=== PATIENT | female | born 1940 | race Caucasian/White ===

== ENCOUNTER 2016-10-29 17:54 | Inpatient (IN) | payer MEDICARE, BC ==
[2016-10-29 19:15] LABS: Hematocrit 46 % (35-47); Hemoglobin 15.2 g/dl (12.0-16.0); Mean Corpuscular HGB Conc 33 g/dl (31-36); Mean Corpuscular Hemoglobin 28 pg (27-31); Mean Corpuscular Volume 85 fL (80-97); Mean Platelet Volume 7 um3 (7.4-10.4); Red Blood Count 5.42 10^6/ul (4.0-5.4); Red Cell Distribution Width 15 % (10.5-15); White Blood Count 10.7 10^3/ul (3.5-10.8)
[2016-10-29 19:28] LABS: ALT 17 U/L (7-52); AST 31 U/L (13-39); Albumin 4.7 g/dL (3.2-5.2); Alkaline Phosphatase 70 U/L (34-104); Anion Gap 11 mmol/L (2-11); BUN/Creatinine Ratio 11.5 (8-20); Blood Urea Nitrogen 11 mg/dL (6-24); CO2 Carbon Dioxide 25 mmol/L (22-32); Calcium 9.6 mg/dL (8.6-10.3); Chloride 102 mmol/L (101-111); EGFR African American 72.9 (>60); EGFR Non-African American 56.7 (>60); Glucose 155 mg/dL (70-100); Potassium 2.8 mmol/L (3.5-5.0); Sodium 138 mmol/L (133-145); Total Protein 7.7 g/dL (6.4-8.9)
[2016-10-29 19:34] LABS: Acetaminophen < 15 mcg/mL; Alcohol < 10 mg/dL (<10); Salicylate < 2.50 mg/dL (<30)
[2016-10-29 19:44] LABS: TSH (Thyroid Stimulating Horm) 1.91 mcIU/mL (0.34-5.60)
[2016-10-29] MEDS ORDERED: Potassium Chlor TAB* 20 MEQ TAB.ER PO ONE (20:07)
[2016-10-29] MEDS ORDERED: Acetaminophen TAB* 325 MG PO ONE (20:07)
--- NOTE | 2016-10-29 20:20 | RAD ---
INDICATION: Altered mental status. COMPARISON: Comparison is made with a prior CT of the brain from July 10, 2015. TECHNIQUE: Contiguous axial sections of the brain were obtained from the skull base to the vertex without contrast. FINDINGS: The ventricles, cisterns and sulci are enlarged and unchanged significantly from the prior study.. There are multiple areas of decreased density in the subcortical and periventricular white matter which are unchanged significantly most consistent with chronic small vessel ischemic changes. No other focal abnormality or mass effect is seen. There is no evidence for hemorrhage. No significant focal osseous abnormality is seen. The visualized portion of the paranasal sinuses and mastoid air cells appear clear. IMPRESSION: 1. NO EVIDENCE FOR GROSS ACUTE INFARCT, MASS EFFECT OR HEMORRHAGE. 2. ATROPHY AND FINDINGS MOST CONSISTENT WITH MODERATE TO SEVERE CHRONIC SMALL VESSEL ISCHEMIC CHANGES.
[2016-10-29 20:23] LABS: Urine Bacteria Absent (Absent); Urine Bilirubin Negative (Negative); Urine Glucose 1+(50 mg/dL) (Negative); Urine Nitrite Negative (Negative)
[2016-10-29 20:37] LABS: Benzodiazepine Urine Screen None Detected (None Detect)
[2016-10-29] MEDS ORDERED: LORazepam TAB(*) 1 MG PO ONE (21:22)
[2016-10-29] MEDS ORDERED: LORazepam TAB(*) 1 MG ONE (21:24)
--- NOTE | 2016-10-30 00:24 | ED ---
Conchita Bentley Janilya, scribed for Steffen Washington MD on 10/29/16 at 1838 . Psychiatric Complaint - HPI Summary HPI Summary: A 76 y/o female was brought to [facility] by police for stating "I don't want to live anymore". Pt confirms this sentiment, however denies having any thoughts about self-harm. Pt does not take any medication for depression anymore, however , she used to do so before. Pt reports feeling depressed. - History Of Current Complaint Chief Complaint: EDMentalHealth Time Seen by Provider: 10/29/16 18:26 Hx Obtained From: Patient Onset/Duration: Sudden Onset, Lasting Days, Still Present Timing: Constant Severity Initially: Moderate Severity Currently: Moderate Character: Depressed Aggravating Factor(s): Nothing Alleviating Factor(s): Nothing Associated Signs And Symptoms: Positive: Negative Related History: Positive For: Prior Psychiatric Issues Has Suicidal: Denies: Thoughts, With A Plan Has Homicidal: Denies: Thoughts, With A Plan - Risk Factor(s) Completed Suicide Risk Factors: Age Greater Than 60 - Allergies/Home Medications Allergies/Adverse Reactions: Allergies Allergy/AdvReac Type Severity Reaction Status Date / Time Adhesive Tape Allergy Intermediate Blisters Verified 10/29/16 18:13 Bacitracin [From Neosporin] Allergy Intermediate Blisters Verified 10/29/16 18: 13 Neomycin [From Neosporin] Allergy Intermediate Blisters Verified 10/29/16 18:13 Polymyxin B [From Neosporin] Allergy Intermediate Blisters Verified 10/29/16 18: 13 Ciprofloxacin [From Cipro] Allergy Unknown Unknown Verified 10/29/16 18:13 Reaction Details Fentanyl Allergy Unknown Unknown Verified 10/29/16 18:13 Reaction Details Penicillins Allergy Unknown Unknown Verified 10/29/16 18:13 Reaction Details Diclofenac [From Arthrotec] Allergy GI Upset Verified 10/29/16 18:13 Misoprostol [From Arthrotec] Allergy GI Upset Verified 10/29/16 18:13 Erythromycin AdvReac Intermediate GI Upset Verified 10/29/16 18:13 Hair Dye Allergy Intermediate Blisters Uncoded 10/29/16 18:13 Seasonal/Environmental Allergy Intermediate Coughing Uncoded 10/29/16 18:13 Toprol Allergy Unknown Unknown Uncoded 10/29/16 18:13 Reaction Details bactiban Allergy Unknown Uncoded 10/29/16 18:13 Reaction Details PMH/Surg Hx/FS Hx/Imm Hx Endocrine/Hematology History: Reports: Hx Thyroid Disease - Nodule, needs follow up, Hx Anemia Denies: Hx Diabetes Cardiovascular History: Reports: Hx Coronary Artery Disease, Hx Deep Vein Thrombosis, Hx Hypercholesterolemia, Hx Hypertension, Hx Syncope Denies: Hx Congestive Heart Failure, Hx Pacemaker/ICD Respiratory History: Reports: Hx Asthma - Seasonal, Hx Pneumonia, Hx Pulmonary Embolism, Hx Seasonal Allergies Denies: Hx Chronic Obstructive Pulmonary Disease (COPD) GI History: Reports: Hx Gastroesophageal Reflux Disease, Hx Gastrointestinal Bleed Denies: Hx Ulcer History: Denies: Hx Renal Disease Musculoskeletal History: Reports: Hx Arthritis, Hx Back Problems, Other Musculoskeletal History - hx right heel ulcers Sensory History: Reports: Hx Contacts or Glasses Denies: Hx Hearing Aid, Other Sensory Impairments Opthamlomology History: Reports: Hx Contacts or Glasses Denies: Other Sensory Impairments Neurological History: Reports: Hx Headaches, Hx Migraine - 3 in lifetime, Hx Transient Ischemic Attacks (TIA) Denies: Hx Dementia, Hx Developmental Delay, Hx Nerve Disease, Hx Seizures, Hx Spinal Cord Injury, Other Neuro Impairments/Disorders - hx lumbar stenosis Psychiatric History: Reports: Hx Anxiety, Hx Depression, Hx Inpatient Treatment , Hx Substance Abuse, Other Psychiatric Issues/Disorders - Previous suicide attempt 2012 , delirium Denies: Hx Eating Disorder, Hx Panic Disorder, Hx Community Mental Health Tx , Hx of Violent Episodes Against Others - Surgical History Surgery Procedure, Year, and Place: Tubal ligation 1971, right knee surgery 1984, Removal of lesions on skin all benign, RIGHT LEG ARTERIAL STENT, exploratory surgery, cardiac cath at [facility] [place] 04/07/14 Hx Anesthesia Reactions: No Infectious Disease History: No Infectious Disease History: Reports: Hx of Known/Suspected MRSA - rt foot 09/20 Denies: Hx Hepatitis, Hx Human Immunodeficiency Virus (HIV), Traveled Outside the [place] in Last 30 Days - Family History Known Family History: Positive: Cardiac Disease - father, Hypertension - mother , Other - cancer- mother, sister - Social History Alcohol Use: Daily Alcohol Amount: 1/2 drink a day Substance Use Type: Reports: None Smoking Status (MU): Former Smoker Type: Cigarettes Length of Time of Smoking/Using Tobacco: 60 years Have You Smoked in the Last Year: No Review of Systems Negative: Fever Positive: Depressed All Other Systems Reviewed And Are Negative: Yes Physical Exam Triage Information Reviewed: Yes Vital Signs On Initial Exam: Initial Vitals Temp Pulse Resp BP Pulse Ox 99.1 F 90 18 159/97 98 10/29/16 18:07 10/29/16 18:07 10/29/16 18:07 10/29/16 18:07 10/29/16 18:07 Appearance: Positive: Well-Appearing, No Pain Distress Skin: Positive: Warm, Skin Color Reflects Adequate Perfusion, Dry Head/Face: Positive: Normal Head/Face Inspection Eyes: Positive: EOMI, CISCO ENT: Positive: Normal ENT inspection Neck: Positive: Supple, Nontender Respiratory/Lung Sounds: Positive: Clear to Auscultation, Breath Sounds Present Cardiovascular: Positive: RRR Abdomen Description: Positive: Nontender, Soft Musculoskeletal: Positive: Normal, Strength/ROM Intact Neurological: Positive: Normal, Sensory/Motor Intact, Alert, Oriented to Person Place, Time Psychiatric: Positive: Affect/Mood Appropriate Diagnostics - Vital Signs Vital Signs Temp Pulse Resp BP Pulse Ox 10/29/16 18:07 99.1 F 90 18 159/97 98 - Laboratory Lab Results: Lab Results 10/29/16 10/29/16 10/29/16 Range/Units 18:30 18:30 20:10 WBC 10.7 (3.5-10.8) 10^3/ul RBC 5.42 H (4.0-5.4) 10^6/ul Hgb 15.2 (12.0-16.0) g/dl Hct 46 (35-47) % MCV 85 (80-97) fL MCH 28 (27-31) pg MCHC 33 (31-36) g/dl RDW 15 (10.5-15) % Plt Count 274 (150-450) 10^3/ul MPV 7 L (7.4-10.4) um3 Neut % (Auto) 66.4 (38-83) % Lymph % (Auto) 24.0 L (25-47) % Hall % (Auto) 7.7 (1-9) % Eos % (Auto) 0.9 (0-6) % Baso % (Auto) 1.0 (0-2) % Absolute Neuts (auto) 7.1 (1.5-7.7) 10^3/ul Absolute Lymphs (auto) 2.6 (1.0-4.8) 10^3/ul Absolute Monos (auto) 0.8 (0-0.8) 10^3/ul Absolute Eos (auto) 0.1 (0-0.6) 10^3/ul Absolute Basos (auto) 0.1 (0-0.2) 10^3/ul Absolute Nucleated RBC 0.04 10^3/ul Nucleated RBC % 0.4 Sodium 138 (133-145) mmol/L Potassium 2.8 L (3.5-5.0) mmol/L Chloride 102 (101-111) mmol/L Carbon Dioxide 25 (22-32) mmol/L Anion Gap 11 (2-11) mmol/L BUN 11 (6-24) mg/dL Creatinine 0.96 H (0.51-0.95) mg/dL Est GFR ( Amer) 72.9 (>60) Est GFR (Non-Af Amer) 56.7 (>60) BUN/Creatinine Ratio 11.5 (8-20) Glucose 155 H (70-100) mg/dL Calcium 9.6 (8.6-10.3) mg/dL Total Bilirubin 1.00 (0.2-1.0) mg/dL AST 31 (13-39) U/L ALT 17 (7-52) U/L Alkaline Phosphatase 70 (34-104) U/L Ammonia (16-53) mol/L Total Protein 7.7 (6.4-8.9) g/dL Albumin 4.7 (3.2-5.2) g/dL Globulin 3.0 (2-4) g/dL Albumin/Globulin Ratio 1.6 (1-3) TSH 1.91 (0.34-5.60) mcIU/mL Urine Color Straw Urine Appearance Clear Urine pH 7.0 (5-9) Ur Specific Schuyler 1.006 L (1.010-1.030) Urine Protein 1+(30 mg/dl) H (Negative) Urine Ketones Negative (Negative) Urine Blood Negative (Negative) Urine Nitrate Negative (Negative) Urine Bilirubin Negative (Negative) Urine Urobilinogen Negative (Negative) Ur Leukocyte Esterase Negative (Negative) Urine WBC (Auto) Absent (Absent) Urine RBC (Auto) Absent (Absent) Ur Squamous Epith Cells Present H (Absent) Urine Bacteria Absent (Absent) Urine Glucose 1+(50 mg/dl) H (Negative) Salicylates < 2.50 (<30) mg/dL Urine Opiates Screen (None Detect) Acetaminophen < 15 mcg/mL Ur Barbiturates Screen (None Detect) Ur Phencyclidine Scrn (None Detect) Ur Amphetamines Screen (None Detect) U Benzodiazepines Scrn (None Detect) Urine Cocaine Screen (None Detect) U Cannabinoids Screen (None Detect) Serum Alcohol < 10 (<10) mg/dL 10/29/16 10/29/16 Range/Units 20:10 20:31 WBC (3.5-10.8) 10^3/ul RBC (4.0-5.4) 10^6/ul Hgb (12.0-16.0) g/dl Hct (35-47) % MCV (80-97) fL MCH (27-31) pg MCHC (31-36) g/dl RDW (10.5-15) % Plt Count (150-450) 10^3/ul MPV (7.4-10.4) um3 Neut % (Auto) (38-83) % Lymph % (Auto) (25-47) % Hall % (Auto) (1-9) % Eos % (Auto) (0-6) % Baso % (Auto) (0-2) % Absolute Neuts (auto) (1.5-7.7) 10^3/ul Absolute Lymphs (auto) (1.0-4.8) 10^3/ul Absolute Monos (auto) (0-0.8) 10^3/ul Absolute Eos (auto) (0-0.6) 10^3/ul Absolute Basos (auto) (0-0.2) 10^3/ul Absolute Nucleated RBC 10^3/ul Nucleated RBC % Sodium (133-145) mmol/L Potassium (3.5-5.0) mmol/L Chloride (101-111) mmol/L Carbon Dioxide (22-32) mmol/L Anion Gap (2-11) mmol/L BUN (6-24) mg/dL Creatinine (0.51-0.95) mg/dL Est GFR ( Amer) (>60) Est GFR (Non-Af Amer) (>60) BUN/Creatinine Ratio (8-20) Glucose (70-100) mg/dL Calcium (8.6-10.3) mg/dL Total Bilirubin (0.2-1.0) mg/dL AST (13-39) U/L ALT (7-52) U/L Alkaline Phosphatase (34-104) U/L Ammonia 40 (16-53) mol/L Total Protein (6.4-8.9) g/dL Albumin (3.2-5.2) g/dL Globulin (2-4) g/dL Albumin/Globulin Ratio (1-3) TSH (0.34-5.60) mcIU/mL Urine Color Urine Appearance Urine pH (5-9) Ur Specific Schuyler (1.010-1.030) Urine Protein (Negative) Urine Ketones (Negative) Urine Blood (Negative) Urine Nitrate (Negative) Urine Bilirubin (Negative) Urine Urobilinogen (Negative) Ur Leukocyte Esterase (Negative) Urine WBC (Auto) (Absent) Urine RBC (Auto) (Absent) Ur Squamous Epith Cells (Absent) Urine Bacteria (Absent) Urine Glucose (Negative) Salicylates (<30) mg/dL Urine Opiates Screen None detected (None Detect) Acetaminophen mcg/mL Ur Barbiturates Screen None detected (None Detect) Ur Phencyclidine Scrn None detected (None Detect) Ur Amphetamines Screen None detected (None Detect) U Benzodiazepines Scrn None detected (None Detect) Urine Cocaine Screen None detected (None Detect) U Cannabinoids Screen None detected (None Detect) Serum Alcohol (<10) mg/dL Result Diagrams: 10/29/16 18:30 10/29/16 18:30 Lab Statement: Any lab studies that have been ordered have been reviewed, and results considered in the medical decision making process. Course/Dx - Course Assessment/Plan: MHE PENDING AT SHIFT CHANGE, STABLE. - Differential Dx/Clinical Impression Provider Diagnosis: Mental health problem Discharge - Discharge Plan Condition: Stable Disposition: PSYCHIATRIC FACILITY-[facility] [place] Referrals: Buster Moore MD [Primary Care Provider] - The documentation as recorded by the Conchita bee Janilya accurately reflects the service I personally performed and the decisions made by me, Steffen Washington MD. Addendum entered and electronically signed by Germán Kincaid PA 10/30/16 15:59: ED Addendum Addendum: S: LOST OF 45 YEARS SIX YEARS AGO. STILL DEEPLY GRIEVING. WAS PULLED OVER BY WARP DRAWER YESTERDAY FOR BRAKE LIGHT. PANICKED AND TOLD OFFICER THAT SHE DIDN'T WANT TO LIVE. DOES THINK ABOUT JOINING , OFTEN THINKS ABOUT DYING, AND IN DEEP GRIEF. HOWEVER, STATES SHE WOULDN'T KILL HERSELF BECAUSE OF SIKH CONCERNS. 0:THE PATIENT IS WELL NOURISHED IN NO DISTRESS (MILD AND PALE APEARING) THE SKIN IS WARM AND DRY AND SKIN COLOR REFLECTS ADEQUATE PERFUSION heent: THE HEAD IS NORMOCEPHALIC AND ATRAUMATIC. THE PUPILS ARE EQUAL AND REACTIVE. THE CONJUNCTIVAE ARE CLEAR AND WITHOUT DRAINAGE. NARES ARE PATENT AND WITHOUT DRAINAGE. MOUTH REVEALS MOIST MUCUS MEMBRANES AND THE THROAT IS WITHOUT ERYTHEMA AND EXUDATE. THE EXTERNAL EARS ARE INTACT. THE EAR CANALS ARE PATENT AND WITHOUT DRAINGE. THE TYMPANIC MEMBRANES ARE INTACT. respiratory: CHEST IS NONTENDER. LUNGS ARE CLEAR TO AUSCULTATION AND BREATH SOUNDS ARE SYMMETRICAL AND EQUAL. cardiovascular: HEART HAS A REGULAR RATE AND RHYTHM. THERE IS NO RUB AUSCULTATED. NO PERIPHERAL EDEMA AND PULSES ARE SYMMETRICAL AND EQUAL. NO MURMUR AUSCULTATED. abdomen: ABDOMEN IS NONDISTENDED. NORMAL BOWEL SOUNDS IN ALL FOUR QUADRANTS. NO PAIN TO PALPITATION IN QUADRANTS. musculoskeletal: THERE IS NO BACK PAIN NOTED. 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 THERE IS GOOD CAPILARY REFILL. THERE IS NO PERIPHERAL EDEMA OR CALF TENDERNESS ELICITED. neuro: PATIENT IS ALERT AND ORIENTED TO PERSON PLACE AND TIME. PATIENT HAS SYMMETRICAL MOTOR STRENGTH IN ALL EXTREMITIES. CN 2-12 INTACT psychiatric: THE PATIENT IS ALERT AND RESPONDS DIRECTLY TO QUESTIONS HOWEVER, SHE BECOMES TEARFUL WHEN REFLECTING ON GRIEF AND LOSS OF . A/P: TYLENOL ORDERED FOR HIP PAIN. WALKER ORDERED. MENTAL HEALTH STAFF ATTMPTING TO FIND LPLACEMENT IN TRANSFER FACILITY. BUT GENERAL TENOR OF STAFF IS THAT ALL SURROUNDING FACILITIES ARE FULL.
[2016-10-30] MEDS ORDERED: LORazepam TAB(*) 1 MG PO ONE (01:11)
[2016-10-30] MEDS ORDERED: Atorvastatin* 10 MG TAB PO ONE (08:28)
[2016-10-30] MEDS ORDERED: Losartan TAB* 25 MG PO ONE (08:28)
[2016-10-30] MEDS ORDERED: Clopidogrel TAB* 75 MG PO ONE (08:28)
[2016-10-30] MEDS ORDERED: amLODIPine TAB* 5 MG PO ONE (08:29)
[2016-10-30] MEDS ORDERED: Acetaminophen TAB* 325 MG PO ONE (15:39)
[2016-10-30] MEDS ORDERED: traZODone TAB* 50 MG TAB PO ONE (22:02)
--- NOTE | 2016-10-30 23:25 | ED ---
Progress - Progress Note Progress Note: TRANSFER PENDING AT SHIFT CHANGE, STABLE. - Consult/PCP Time Called: 01:00 Course/Dx - Diagnoses Provider Diagnoses: Mental health problem
[2016-10-31] MEDS ORDERED: Atorvastatin* 10 MG TAB PO ONE (07:58)
[2016-10-31] MEDS ORDERED: Losartan TAB* 25 MG PO ONE (07:58)
[2016-10-31] MEDS ORDERED: Clopidogrel TAB* 75 MG PO ONE (07:58)
[2016-10-31] MEDS ORDERED: traZODone TAB* 50 MG TAB PO ONE (07:59)
[2016-10-31] MEDS ORDERED: amLODIPine TAB* 5 MG PO ONE (07:59)
[2016-10-31] MEDS ORDERED: Al Hydrox/Mg Hydrox/Simet LIQ* 30 ML UDC PO PRN (14:21)
--- NOTE | 2016-10-31 14:53 | ED ---
Jerad Bentley Matthew, scribed for Zheng Wheeler MD on 10/31/16 at 1400 . Progress - Progress Note Progress Note: The patient is a sign out from Dr. Washington Signed voluntary admission orders for this patient. They are in stable condition and will be admitted to [facility] mental health unit. - Consult/PCP Time Called: 01:00 Course/Dx - Diagnoses Provider Diagnoses: Depression The documentation as recorded by the scribeJerad Matthew accurately reflects the service I personally performed and the decisions made by Liam gerard Drew, MD.
[2016-10-31] MEDS: Acetaminophen TAB* 325 MG PO PRN (21:30)
[2016-10-31] MEDS: traZODone TAB* 50 MG TAB PO SCH (21:56)
[2016-11-01] MEDS: Vitamin THERAPEUTIC TAB PO SCH (09:03)
[2016-11-01] MEDS: Clopidogrel TAB* 75 MG PO SCH (09:03)
[2016-11-01] MEDS: Atorvastatin* 10 MG TAB PO SCH (09:03)
[2016-11-01] MEDS: amLODIPine TAB* 5 MG PO SCH (09:03)
[2016-11-01] MEDS: Losartan TAB* 25 MG PO SCH (09:04)
[2016-11-01] MEDS: Oxybutynin TAB* 5 MG PO SCH (09:27)
[2016-11-01] MEDS: Acetaminophen TAB* 325 MG PO PRN ×3 (09:30→22:16)
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
[2016-11-01] MEDS: traZODone TAB* 50 MG TAB PO SCH (22:12)
[2016-11-02] MEDS: Acetaminophen TAB* 325 MG PO PRN ×3 (07:40→21:30)
[2016-11-02] MEDS: Vitamin THERAPEUTIC TAB PO SCH (09:08)
[2016-11-02] MEDS: Potassium Chlor TAB* 20 MEQ TAB.ER PO SCH (09:08)
[2016-11-02] MEDS: amLODIPine TAB* 5 MG PO SCH (09:08)
[2016-11-02] MEDS: Losartan TAB* 25 MG PO SCH (09:09)
[2016-11-02] MEDS: Clopidogrel TAB* 75 MG PO SCH (09:09)
[2016-11-02] MEDS: Atorvastatin* 10 MG TAB PO SCH (09:09)
[2016-11-02] MEDS: Oxybutynin TAB* 5 MG PO SCH (11:24)
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
[2016-11-02] MEDS: traZODone TAB* 50 MG TAB PO SCH (21:30)
[2016-11-03] MEDS: Acetaminophen TAB* 325 MG PO PRN ×2 (09:02→21:31)
[2016-11-03] MEDS: Losartan TAB* 25 MG PO SCH (09:02)
[2016-11-03] MEDS: amLODIPine TAB* 5 MG PO SCH (09:03)
[2016-11-03] MEDS: Potassium Chlor TAB* 20 MEQ TAB.ER PO SCH (09:03)
[2016-11-03] MEDS: Vitamin THERAPEUTIC TAB PO SCH (09:03)
[2016-11-03] MEDS: Atorvastatin* 10 MG TAB PO SCH (09:03)
[2016-11-03] MEDS: Oxybutynin TAB* 5 MG PO SCH (09:03)
[2016-11-03] MEDS: Clopidogrel TAB* 75 MG PO SCH (09:31)
--- NOTE | 2016-11-03 13:18 | PN ---
Subjective - Subjective Service Type: 02175 Hosp care 15 min low complexity Subjective: The patient is doing well today. She continues to deny SI and is bright and smiling on approach. The patient is aware that her eldest daughter is visiting the unit tomorrow afternoon and is hoping for d/c thereafter. She is future- oriented, stating that she'd like to move to an assisted living facility in [place], [place] to be closer to her youngest daughter. Objective - Appearance Appearance: Well Developed/Nourished Dysmorphic Features: No Hygiene: Normal Grooming: Fairly Well Kept - Behavior Psychomotor Activities: Normal Exhibits Abnormal Movement: No - Attitude and Relatedness Attitude and Relatedness: Cooperative Eye Contact: Fair - Speech Quality: Unpressured Latencies: Normal Quantity: Appropriate - Mood Patient's Decription of Mood: "Good" - Affect Observed Affect: Good Affect Consistent with: Euthymia - Thought Process Patient's Thought Process: Coherent Thought Content: No Passive Wish, No Suicidal Planning, No Homicidal Ideation, No Paranoid Ideation - Sensorium Experiencing Hallucinations: No, Sensorium is Clear Type of Hallucinations: Visual: No, Auditory: No, Command: No - Level of Consciousness Level of Consciousness: Alert Orientation: Yes Intact, Yes Orientated to Time, Yes Orientated to Place, Yes Orientated to Person - Impulse Control Impulse Control: Tenuous - Insight and Judgement Insight and Judgement: Fair - Group Participation Particating in Group Activities: Yes - Medication Management Medication Management Adherence: Yes Assessment - Assessment Merits Inpatient Hospitalization: Consolidate Improvements, Pending Safe DC Plan Inpatient DSM-IV Dx: 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 Clinical Impression: 76 y.o. , white female with a history of depression and alcohol abuse admitted involuntarily through the ER after making suicidal statements to a workplace rehabilitation officer during a routine traffic stop. Further evaluation reveals significant psychosocial stressors involving interpersonal relationships with her children, housing and placement issues. Plan - Plan Treatment Plan: Name: VANNESSA GONCALVES Birthdate: 1940 [id number] The patient will remain on the unit on q30min observations to assure her safety. Her daughter, Brielle, will arrive for a family meeting on Monday, , to discuss treatment and d/c planning. Likely discharge thereafter. Continued Medication Management: Continue Outpt Medication Medications: Current Medications Acetaminophen (Tylenol Tab*) 650 mg PO Q4H PRN PRN Reason: PAIN or TEMP > 101 F Last Admin: 11/03/16 09:02 Dose: 650 mg Al Hydrox/Mg Hydrox/Simethicone (Maalox Plus*) 30 ml PO Q4H PRN PRN Reason: INDIGESTION Amlodipine Besylate (Norvasc Tab*) 5 mg PO DAILY [facility] Last Admin: 11/03/16 09:03 Dose: 5 mg Atorvastatin Calcium (Lipitor*) 5 mg PO DAILY [facility] Last Admin: 11/03/16 09:03 Dose: 5 mg Clopidogrel Bisulfate (Plavix Tab*) 75 mg PO DAILY [facility] Last Admin: 11/03/16 09:31 Dose: 75 mg Losartan Potassium (Cozaar Tab*) 50 mg PO DAILY [facility] Last Admin: 11/03/16 09:02 Dose: 50 mg Multivitamins (Theragran Tab*) 1 tab PO DAILY [facility] Last Admin: 11/03/16 09:03 Dose: 1 tab Oxybutynin Chloride (Ditropan Tab*) 10 mg PO DAILY [facility] Last Admin: 11/03/16 09:03 Dose: Not Given Potassium Chloride (Klor Con Er Tab*) 20 meq PO DAILY [facility] Last Admin: 11/03/16 09:03 Dose: 20 meq Trazodone HCl (Desyrel Tab*) 50 mg PO BEDTIME [facility] Last Admin: 11/02/16 21:30 Dose: 50 mg - Discharge Plan Discharge Plan: Inpatient Hospitalization
[2016-11-03] MEDS: traZODone TAB* 50 MG TAB PO SCH (21:20)
[2016-11-04] MEDS: Acetaminophen TAB* 325 MG PO PRN ×2 (09:05→19:37)
[2016-11-04] MEDS: Losartan TAB* 25 MG PO SCH (09:06)
[2016-11-04] MEDS: Oxybutynin TAB* 5 MG PO SCH (09:07)
[2016-11-04] MEDS: Atorvastatin* 10 MG TAB PO SCH (09:07)
[2016-11-04] MEDS: amLODIPine TAB* 5 MG PO SCH (09:08)
[2016-11-04] MEDS: Potassium Chlor TAB* 20 MEQ TAB.ER PO SCH (09:08)
[2016-11-04] MEDS: Clopidogrel TAB* 75 MG PO SCH (09:08)
[2016-11-04] MEDS: Vitamin THERAPEUTIC TAB PO SCH (09:08)
--- NOTE | 2016-11-04 16:08 | PN ---
Subjective - Subjective Service Type: 92422 Family Medical Psyc Subjective: The patient is seen for family meeting along with her daughter, Brielle, and SW Josefina Noble. The patient is at first resistant and defensive until daughter points out various emotional aspects of their relationship, making the patient more introspective and tearful. The upshot of the interaction is that Linda is now reevaluating her plan to move down to [place]. The meeting is somewhat intense and we offer the patient continued hospitalization over the weekend to process the session, which both she and her daughter agree with this plan. The patient denies SI. Objective - Appearance Appearance: Well Developed/Nourished Dysmorphic Features: No Hygiene: Normal Grooming: Well Kept - Behavior Psychomotor Activities: Normal Exhibits Abnormal Movement: No - Attitude and Relatedness Attitude and Relatedness: Cooperative Eye Contact: Fair - Speech Quality: Unpressured Latencies: Normal Quantity: Appropriate - Mood Patient's Decription of Mood: "Sad" - Affect Observed Affect: Tearful Affect Consistent with: Dysphoria - Thought Process Patient's Thought Process: Coherent Thought Content: No Passive Wish, No Suicidal Planning, No Homicidal Ideation, No Paranoid Ideation - Sensorium Experiencing Hallucinations: No, Sensorium is Clear Type of Hallucinations: Visual: No, Auditory: No, Command: No - Level of Consciousness Orientation: Yes Intact, Yes Orientated to Time, Yes Orientated to Place, Yes Orientated to Person - Impulse Control Impulse Control: Tenuous - Insight and Judgement Insight and Judgement: Poor - Group Participation Particating in Group Activities: Yes - Medication Management Medication Management Adherence: Yes Assessment - Assessment Merits Inpatient Hospitalization: For Immediate Safety, For Stabilization Inpatient DSM-IV Dx: 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 Clinical Impression: 76 y.o. , white female with a history of depression and alcohol abuse admitted involuntarily through the ER after making suicidal statements to a safety instruction police officer during a routine traffic stop. Further evaluation reveals significant psychosocial stressors involving interpersonal relationships with her children, housing and placement issues. Plan - Plan Treatment Plan: Name: LINDA GONCALVES Birthdate: 1940 [id number] The patient will remain on the unit on q30min observations to assure her safety. The patient is emotionally distraught and would benefit from some time to process her family meeting. Placement remains uncertain. Will keep on the unit over the weekend and re-eval on Monday (11/07). Continued Medication Management: Continue Outpt Medication Medications: Current Medications Acetaminophen (Tylenol Tab*) 650 mg PO Q4H PRN PRN Reason: PAIN or TEMP > 101 F Last Admin: 11/04/16 09:05 Dose: 650 mg Al Hydrox/Mg Hydrox/Simethicone (Maalox Plus*) 30 ml PO Q4H PRN PRN Reason: INDIGESTION Amlodipine Besylate (Norvasc Tab*) 5 mg PO DAILY [facility] Last Admin: 11/04/16 09:08 Dose: 5 mg Atorvastatin Calcium (Lipitor*) 5 mg PO DAILY [facility] Last Admin: 11/04/16 09:07 Dose: 5 mg Clopidogrel Bisulfate (Plavix Tab*) 75 mg PO DAILY [facility] Last Admin: 11/04/16 09:08 Dose: 75 mg Losartan Potassium (Cozaar Tab*) 50 mg PO DAILY [facility] Last Admin: 11/04/16 09:06 Dose: 50 mg Multivitamins (Theragran Tab*) 1 tab PO DAILY [facility] Last Admin: 11/04/16 09:08 Dose: 1 tab Oxybutynin Chloride (Ditropan Tab*) 10 mg PO DAILY [facility] Last Admin: 11/04/16 09:07 Dose: Not Given Potassium Chloride (Klor Con Er Tab*) 20 meq PO DAILY [facility] Last Admin: 11/04/16 09:08 Dose: 20 meq Trazodone HCl (Desyrel Tab*) 50 mg PO BEDTIME [facility] Last Admin: 11/03/16 21:20 Dose: 50 mg - Discharge Plan Discharge Plan: Inpatient Hospitalization
[2016-11-04] MEDS: traZODone TAB* 50 MG TAB PO SCH (20:49)
[2016-11-05] MEDS: Acetaminophen TAB* 325 MG PO PRN ×2 (07:41→22:05)
[2016-11-05] MEDS: Potassium Chlor TAB* 20 MEQ TAB.ER PO SCH (09:33)
[2016-11-05] MEDS: Losartan TAB* 25 MG PO SCH (09:34)
[2016-11-05] MEDS: Oxybutynin TAB* 5 MG PO SCH (09:34)
[2016-11-05] MEDS: Clopidogrel TAB* 75 MG PO SCH (09:35)
[2016-11-05] MEDS: amLODIPine TAB* 5 MG PO SCH (09:35)
[2016-11-05] MEDS: Vitamin THERAPEUTIC TAB PO SCH (09:35)
[2016-11-05] MEDS: Atorvastatin* 10 MG TAB PO SCH (09:41)
[2016-11-05] MEDS: Benzocaine (DENTAL) 10%* TOP.GEL TOPICAL PRN (16:54)
[2016-11-05] MEDS: traZODone TAB* 50 MG TAB PO SCH (23:01)
[2016-11-06] MEDS: Losartan TAB* 25 MG PO SCH (08:17)
[2016-11-06] MEDS: Clopidogrel TAB* 75 MG PO SCH (08:17)
[2016-11-06] MEDS: Vitamin THERAPEUTIC TAB PO SCH (08:17)
[2016-11-06] MEDS: Oxybutynin TAB* 5 MG PO SCH (08:17)
[2016-11-06] MEDS: Atorvastatin* 10 MG TAB PO SCH (08:18)
[2016-11-06] MEDS: amLODIPine TAB* 5 MG PO SCH (08:18)
[2016-11-06] MEDS: Potassium Chlor TAB* 20 MEQ TAB.ER PO SCH (08:19)
[2016-11-06] MEDS: Acetaminophen TAB* 325 MG PO PRN ×2 (08:20→20:08)
[2016-11-06 09:14] VITALS: BP 189/101
--- NOTE | 2016-11-06 10:47 | PN ---
Subjective - Subjective Service Type: 26424 Hosp care 15 min low complexity Subjective: Vannessa reports "doing a lot better" than at admission. Says she feels ready to contemplate discharge this week. Notes good unit experience, has her sense of humor back. Objective - Appearance Appearance: Thin Framed Hygiene: Normal Grooming: Fairly Well Kept - Behavior Psychomotor Activities: Normal - Attitude and Relatedness Attitude and Relatedness: Cooperative Eye Contact: Good - Speech Quality: Unpressured Latencies: Normal Quantity: Terse - Mood Patient's Decription of Mood: "Good" - Affect Observed Affect: Non-labile Affect Consistent with: Euthymia - Thought Process Patient's Thought Process: Coherent Thought Content: No Passive Wish, No Suicidal Planning, No Homicidal Ideation, No Paranoid Ideation - Sensorium Experiencing Hallucinations: No, Sensorium is Clear - Level of Consciousness Level of Consciousness: Alert - Impulse Control Impulse Control: Intact - Insight and Judgement Insight and Judgement: Fair Assessment - Assessment Merits Inpatient Hospitalization: Consolidate Improvements, For Discharge Planning Inpatient DSM-IV Dx: 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 Clinical Impression: 76 y.o. white female with a history of alcohol and mood problems, brought by police after she expressed suicidal ideation during [employer] traffic stop. Stabilized here. Safe on checks, free of active suicidal ideation. Discharge planning is in progress, there was a setback in it during a family meeting with her daughter on Monday. Medmgt: Trazodone for sleep. Plan - Plan Treatment Plan: Name: VANNESSA GONCALVES Birthdate: 1940 [id number] Medications: Current Medications Acetaminophen (Tylenol Tab*) 650 mg PO Q4H PRN PRN Reason: PAIN or TEMP > 101 F Last Admin: 11/06/16 08:20 Dose: 650 mg Al Hydrox/Mg Hydrox/Simethicone (Maalox Plus*) 30 ml PO Q4H PRN PRN Reason: INDIGESTION Amlodipine Besylate (Norvasc Tab*) 5 mg PO DAILY [facility] Last Admin: 11/06/16 08:18 Dose: 5 mg Atorvastatin Calcium (Lipitor*) 5 mg PO DAILY [facility] Last Admin: 11/06/16 08:18 Dose: 5 mg Benzocaine (Orajel 10%*) 1 applic TOPICAL TID PRN PRN Reason: FOR MEAL TIMES Last Admin: 11/05/16 16:54 Dose: 1 applic Clopidogrel Bisulfate (Plavix Tab*) 75 mg PO DAILY [facility] Last Admin: 11/06/16 08:17 Dose: 75 mg Losartan Potassium (Cozaar Tab*) 50 mg PO DAILY [facility] Last Admin: 11/06/16 08:17 Dose: 50 mg Multivitamins (Theragran Tab*) 1 tab PO DAILY [facility] Last Admin: 11/06/16 08:17 Dose: 1 tab Oxybutynin Chloride (Ditropan Tab*) 10 mg PO DAILY [facility] Last Admin: 11/06/16 08:17 Dose: 10 mg Potassium Chloride (Klor Con Er Tab*) 20 meq PO DAILY [facility] Last Admin: 11/06/16 08:19 Dose: 20 meq Trazodone HCl (Desyrel Tab*) 50 mg PO BEDTIME [facility] Last Admin: 11/05/16 23:01 Dose: 50 mg
[2016-11-06] MEDS: Benzocaine (DENTAL) 10%* TOP.GEL TOPICAL PRN ×3 (11:44→22:26)
[2016-11-06] MEDS: traZODone TAB* 50 MG TAB PO SCH (22:25)
[2016-11-07] MEDS: Acetaminophen TAB* 325 MG PO PRN (06:01)
[2016-11-07] MEDS: Potassium Chlor TAB* 20 MEQ TAB.ER PO SCH (09:38)
[2016-11-07] MEDS: Losartan TAB* 25 MG PO SCH (09:39)
[2016-11-07] MEDS: Oxybutynin TAB* 5 MG PO SCH (09:39)
[2016-11-07] MEDS: Clopidogrel TAB* 75 MG PO SCH (09:39)
[2016-11-07] MEDS: Atorvastatin* 10 MG TAB PO SCH (09:39)
[2016-11-07] MEDS: amLODIPine TAB* 5 MG PO SCH (09:40)
[2016-11-07] MEDS: Vitamin THERAPEUTIC TAB PO SCH (09:40)
--- NOTE | 2016-11-07 12:49 | PN ---
MHU: Group Therapy Note - Service Type Service Type: 13019 Group Psychotherapy - Cognitive Behavioral Group Therapy ( CBT):Patient was attentive and participatory in CBT programming this morning, and remained in good behavioral control. Patient expressed positive insights regarding relevant treatment interventions and goals.
--- NOTE | 2016-11-08 07:12 | DS ---
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 Harvey II: Deferred. Harvey III: Hypertension, history of tr ansient ischemia in 1990, deep venous thrombosis, history of pulmonary embolus, history of torn liga ments in her left hip, acute hypokalemia, history of stents in bilateral lower extremities, history of tubal ligation, history of right knee surgery. Harvey IV: Severe primary support stressors. Harvey V : At the time of admission was 41 and at the time of discharge is 61. CONDITION AT THE TIME OF DISCHARGE: Stable. The patient is calm and cooperative. She is future rommel ented, indicating that she would like to return to her home and get a residential real estate assistant to represent her in selling some of her assets including her house and then moving to [place] to be closer with her daughter Kylee. The patient is accepting a referral to [facility] and she is willi ng to take public transportation in order to arrive at those appointments. Furthermore, the dischar ge plan has been discussed with her daughter, Brielle, who is in agreement with current discharge p brett considerations. MENTAL STATUS EXAMINATION: The patient is an ageing white female who is using a walker for assistan ce in ambulation. She is fairly well dressed and well groomed. She is calm, cooperative and easy to establish a rapport with. Speech has a normal rate, tone, and volume. Mood appears to be euthymic with a bright affect. Thought process is linear and goal directed. Thought content is significant for her desire to leave the hospital and return to her home. She is denying suicidal or homicidal ideations. She denies auditory or visual hallucinations. Insight and judgment appear to be fair gi herman her acceptance of followup mental health treatment in the community. Cognitively she is awake a nd alert with a fairly average intellect, although she does show some mild deficits in recall as wel l as long-term memory and attention. DISCHARGE INSTRUCTIONS: To the patient are as follows; A. Medications. The patient is taking amlodipine 5 mg p.o. daily; Lipitor 5 mg p.o. daily; Plavix 75 mg p.o. daily; Cozaar 50 mg p.o. daily; Ditropan 10 mg p.o. daily; trazodone 50 mg p.o. q. nightl y. B. Diet: Regular. C. Activities: As tolerated. The patient is a nonsmoker. D. Follow-up care: The patient will follow up with her primary care doctor who is Dr. Moore. She is also receiving a referral to the [facility], where she will follow up within 1 week of discharge. HOSPITAL COURSE - PART A: Reason for admission: The patient is a 76-year-old white female with a history of depression and alcohol abuse, who was brought to the emergency room by the police after she was stopped for routine traffic violation and told the officer that she no longer wanted t o live and was having thoughts of ending her life. The patient was evaluated in our emergency room, where she was minimizing towards her situation, telling them for example that she was devoutly reli gious and did not want to kill herself because she would not be able [facility]. Despite this, her affect was tearful and constricted in the ER and they felt that she warranted involuntary admis shasta. At this time I am seeing her for my initial intake, and she is calm, pleasant, and cooperativ e. She is no longer tearful and in fact, her affect does appear to be bright. Despite this, she se emed guarded around the subject of involving her daughters in her treatment. She went on to tell me that she had been living in a home that she owns and had been allowing her second of three daughter s to stay with her. The idea was that this daughter moved in approximately half a year ago in order to help the patient; however, the daughter suffers from mental illness herself and had been abusing alcohol and the patient was afraid that this daughter would be dishonest with the treatment team if she was contacted for collateral. This daughter's name was Shirley. The patient then clarified kanchan t she would not be against the idea of residing in an assisted living facility, but she wanted to do this on her own terms and she had in fact contacted a residential real estate assistant seeking to sell her assets in order to move to a more structured living environment. I did screen her for signs and symptoms o f depression, and she denied sleep disturbance stating that she takes trazodone, which is helpful. She went on to deny anhedonia, guilt, energy problems or concentration difficulties. She did indica te that she has lost some weight, but she does not believe that this is secondary to mood problems. She did not demonstrate any psychomotor retardation and she was denying suicidal ideations at the t jenniffer of our first interview. When I asked her about what she had told the morals squad police officer, she ration alized this saying "I have never been stopped before, I was panicking." She did indicate that her narda angel 6 years ago around giving time and that she does continue to mourn him, but she de nies any other stressors other than the living situation with her daughter. HOSPITAL COURSE - PART B: Psychiatric treatment rendered: The patient was admitted to the [facility] and placed on q.30 minute checks for her own safety. We made a diagnosis of an adjustment disorder and therefore, her medications were not changed in any way from what she takes on an outpatient basis. We did feel that she would benefit from a more structured living environment or at the very least, more supportive care in the home setting and she seemed to agree to this. Fo r collateral information, we reached her eldest daughter who was a nurse practitioner named, Sydnie Rosales, who provided some further history. According to Brielle, the sister Shirley who had been problematic had been encouraged to live the patient's home and returned to stay with her son in [place], [place], in advance of returning to [place]. Brielle did indicate that the patient has been nonadherent with community mental health treatment in the past. In order to further discuss dischar ge planning considerations, we invited Brielle in for a family meeting, which turned out to be a so mewhat long and emotionally difficult one. It does appear that the patient has a tendency to rely h eavily on her daughters for emotional support, but then can become resentful and uncooperative. When confronted with this, the patient did acknowledge that she is difficult to work with in collaborati on, but she did state that she wanted to work harder in the future on being more independent and fol lowing through with available supports in a more collaborative way. At that time, we decided to can fermin the order for discharge on 11/04/16, and postpone it until the , allowing the patien t some time to reevaluate what she wanted to do. On the , she continues to state that her inten tion at this time is to get a residential real estate assistant and sell her house and then use the proceeds to move into an assisted living facility in the vicinity of [place], which is where her youngest ahsan mcdermott named Kylee resides. Brielle does endorse that Kylee is a reasonable source of support and ultimately this is plan that is agreed to at the time of discharge. In the meantime; however, we a re strongly encouraging her to follow through with outpatient at [facility], emil laboy she agrees to. [id number]/CPS #: [id number]
== END 2016-11-07 16:16 | disposition home or self-care (01) | DRG 882 ==
LOC: ED 17:54 → BSU 10-31 14:27
PROVIDERS: ADMIT Psychiatry & Neurology Psychiatry; ATTEND Psychiatry & Neurology Psychiatry
DX: F43.25 Adjustment disorder with mixed disturbance of emotions and conduct (principal); F33.9 Major depressive disorder, recurrent, unspecified; R45.851 Suicidal ideations; I10 Essential (primary) hypertension; F10.10 Alcohol abuse, uncomplicated; E78.5 Hyperlipidemia, unspecified; R32 Unspecified urinary incontinence; Z86.711 Personal history of pulmonary embolism; Z86.718 Personal history of other venous thrombosis and embolism; Z79.899 Other long term (current) drug therapy; Z88.1 Allergy status to other antibiotic agents; Z88.6 Allergy status to analgesic agent; Z88.8 Allergy status to other drugs, medicaments and biological substances; Z91.048 Other nonmedicinal substance allergy status; Z87.891 Personal history of nicotine dependence; Z81.8 Family history of other mental and behavioral disorders
CPT/HCPCS: 36415; 70450; 80053; 80307; 80320; 80329; 81003; 81015; 82140; 84443; 85025; 90847; 90853; 93005; 99222; 99231; 99238; 99283; A9270-GY; G0480

== ENCOUNTER 2017-04-19 10:01 | Day surgery (SDC) | payer MEDICARE, BC ==
[~2017-04-19 10:01] MED LIST: Acetaminophen TAB* 325 MG PO PRN; Buffered Lidocaine 0.9% SYRIN* 5 ML/SYR SYRINGE INTRADERM ONE
[2017-04-19] MEDS ORDERED: Midazolam* 1 MG/ML 2 ML VIAL (2 MG) ONE ×2 (11:12→12:35)
[2017-04-19] MEDS ORDERED: fentaNYL* 50 MCG/ML 2 ML VIAL (100 MCG VIAL) ONE (11:12)
[2017-04-19 11:19] VITALS: BP 141/90
[2017-04-19] MEDS ORDERED: Flurbiprofen 0.03% OPTH.SOL* 2.5 ML BTL ONE (13:28)
[2017-04-19] MEDS ORDERED: acetaZOLAMIDE TAB* 250 MG ONE (13:28)
[2017-04-19] MEDS ORDERED: Phenylephrine 2.5% OPTH.SOL* 2 ML BTL ONE (13:28)
[2017-04-19] MEDS ORDERED: Neomycin/Polymy/Dex OPTH.SUSP* MAXITROL 0.1% 5 ML ONE (13:28)
[2017-04-19] MEDS ORDERED: Buffered Lidocaine 0.9% SYRIN* 5 ML/SYR SYRINGE ONE (13:28)
[2017-04-19] MEDS ORDERED: Lidocaine 2% EPI 1:200000 MPF* 20 ML VIAL ONE (13:28)
[2017-04-19] MEDS ORDERED: Cyclopentolate 1% OPTH.SOL* 2 ML BTL ONE (13:28)
[2017-04-19] MEDS ORDERED: Lidocaine 1% MPF* 2 ML VIAL ONE (13:28)
[2017-04-19] MEDS ORDERED: Povidone Iodine 5% OPTH* 30 ML BTL ONE (13:28)
[2017-04-19] MEDS ORDERED: Proparacaine 0.5% OPHTH.SOL* 15 ML BTL ONE (13:28)
--- NOTE | 2017-04-19 16:26 | OP ---
DATE OF OPERATION: 04/19/2017 - [facility] DATE OF : 1940. SURGEON: Quang Rene M.D. PREOPERATIVE DIAGNOSIS: Cataract left eye. POSTOPERATIVE DIAGNOSIS: Cataract left eye. OPERATIVE PROCEDURE: Phacoemulsification left eye with IOL. DESCRIPTION OF PROCEDURE: The patient was brought to the operating room after being given 1/2% Alcaine with epinephrine drops in the preoperative area. The eye was prepped and draped in the usual sterile fashion. Sterile drape and eyelid speculum were placed. Again, topical 1/2% Alcaine with epinephrine was given. A paracentesis incision was made at the 3 o'clock position with the No.75 blade. Clear cornea incision 2.2 x 2.2-mm was created at the 6 o'clock position starting at the anterior limbus using the 2.2-mm keratome. The anterior chamber was irrigated with 0.4 mL of 1% non-preservative intracameral lidocaine and filled with DisCoVisc. A capsulorrhexis was completed using the cystotome and the Utrata forceps. Hydrodissection was performed with balanced salt solution. The lens nucleus was removed with the Phacoemulsification handpiece without incident. Cortex was removed with the irrigation-aspiration handpiece. The capsular bag was re-inflated using DisCoVisc and an [id number] 21.5 implant was inserted with the shooter. The irrigation-aspiration handpiece was used to remove all residual DisCoVisc. The eye was refilled with balanced salt solution and the wound checked and found to be watertight. Topical Maxitrol drops were given. [id number]/[facility] #: [id number] MTDD
== END 2017-04-19 13:27 | disposition home or self-care (01) ==
LOC: OREAST 10:01
PROVIDERS: ATTEND Specialist
DX: H25.812 Combined forms of age-related cataract, left eye (principal); H04.123 Dry eye syndrome of bilateral lacrimal glands; Z87.891 Personal history of nicotine dependence; Z86.718 Personal history of other venous thrombosis and embolism; Z79.01 Long term (current) use of anticoagulants; I10 Essential (primary) hypertension; I73.9 Peripheral vascular disease, unspecified
CPT/HCPCS: A9270-GY; J2250; J3010; V2632

== ENCOUNTER 2017-05-03 09:42 | Day surgery (SDC) | payer MEDICARE, BC ==
[2017-05-03] MEDS ORDERED: Midazolam* 1 MG/ML 5 ML VIAL (5 MG) ONE (12:15)
[2017-05-03] MEDS ORDERED: Flurbiprofen 0.03% OPTH.SOL* 2.5 ML BTL ONE (12:48)
[2017-05-03] MEDS ORDERED: Phenylephrine 2.5% OPTH.SOL* 2 ML BTL ONE (12:48)
[2017-05-03] MEDS ORDERED: Neomycin/Polymy/Dex OPTH.SUSP* MAXITROL 0.1% 5 ML ONE (12:48)
[2017-05-03] MEDS ORDERED: Lidocaine 1% MPF* 2 ML VIAL ONE (12:48)
[2017-05-03] MEDS ORDERED: Proparacaine 0.5% OPHTH.SOL* 15 ML BTL ONE (12:48)
[2017-05-03] MEDS ORDERED: acetaZOLAMIDE TAB* 250 MG ONE (12:48)
[2017-05-03] MEDS ORDERED: Povidone Iodine 5% OPTH* 30 ML BTL ONE (12:48)
[2017-05-03] MEDS ORDERED: Cyclopentolate 1% OPTH.SOL* 2 ML BTL ONE (12:48)
[2017-05-03] MEDS ORDERED: Buffered Lidocaine 0.9% SYRIN* 5 ML/SYR SYRINGE ONE (12:49)
[2017-05-03 13:08] VITALS: BP 130/80
--- NOTE | 2017-05-04 00:51 | OP ---
DATE OF OPERATION: 05/03/17 - [facility] DATE OF : [birth year] SURGEON: Quang Rene M.D. PREOPERATIVE DIAGNOSIS: Cataract, right eye. POSTOPERATIVE DIAGNOSIS: Cataract, right eye. OPERATIVE PROCEDURE: Phacoemulsification, right eye with IOL. DESCRIPTION OF PROCEDURE: The patient was brought to the operating room after being given 1/2% Alcaine with epinephrine drops in the preoperative area. The eye was prepped and draped in the usual sterile fashion. Sterile drape and eyelid speculum were placed. Again, topical 1/2% Alcaine with epinephrine was given. A paracentesis incision was made at the 9 o'clock position with the No.75 blade. Clear cornea incision 2.2 x 2.2-mm was created at the 12 o'clock position starting at the anterior limbus using the 2.2-mm keratome. The anterior chamber was irrigated with 0.4 mL of 1% non-preservative intracameral lidocaine and filled with DisCoVisc. A capsulorrhexis was completed using the cystotome and the Utrata forceps. Hydrodissection was performed with balanced salt solution. The lens nucleus was removed with the Phacoemulsification handpiece without incident. Cortex was removed with the irrigation-aspiration handpiece. The capsular bag was re-inflated using DisCoVisc and an [id number] 21 implant was inserted with the shooter. The irrigation-aspiration handpiece was used to remove all residual DisCoVisc. The eye was refilled with balanced salt solution and the wound checked and found to be watertight. Topical Maxitrol drops were given. [id number]/[facility] #: [id number] [facility]
== END 2017-05-03 13:08 | disposition home or self-care (01) ==
LOC: OREAST 09:42
PROVIDERS: ATTEND Specialist
DX: H25.811 Combined forms of age-related cataract, right eye (principal); H04 Disorders of lacrimal system; Z87.891 Personal history of nicotine dependence; I25.10 Atherosclerotic heart disease of native coronary artery without angina pectoris; I10 Essential (primary) hypertension; E78.5 Hyperlipidemia, unspecified
CPT/HCPCS: A9270-GY; J2250; V2632

== ENCOUNTER 2018-04-05 15:37 | Inpatient (IN) | payer MEDICARE, BC ==
[2018-04-05 16:11] LABS: ABS Basophils 0.1 10^3/ul (0-0.2); ABS Eosinophils 0.1 10^3/ul (0-0.6); ABS Lymphocytes 2.6 10^3/ul (1.0-4.8); ABS Monocytes 0.6 10^3/ul (0-0.8); ABS Neutrophils 4.7 10^3/ul (1.5-7.7); ABS Nucleated RBC 0 10^3/ul; Eosinophil % 1.7 % (0-6); Hematocrit 41 % (35-47); Hemoglobin 13.7 g/dl (12.0-16.0); Lymphocyte % 31.9 % (25-47); Mean Corpuscular HGB Conc 34 g/dl (31-36); Mean Corpuscular Hemoglobin 29 pg (27-31); Mean Corpuscular Volume 87 fL (80-97); Mean Platelet Volume 6.8 um3 (7.4-10.4); Nucleated Red Blood Cells % 0.1; Platelet Count 340 10^3/ul (150-450); Red Blood Count 4.67 10^6/ul (4.00-5.40); Red Cell Distribution Width 15 % (10.5-15); White Blood Count 8.1 10^3/ul (3.5-10.8)
[2018-04-05 16:28] LABS: Urine Appearance Clear; Urine Blood Negative (Negative); Urine Color Yellow; Urine Ketones Negative (Negative); Urine Protein Negative (Negative); Urine Specific Gravity 1.011 (1.010-1.030); Urine Urobilinogen Negative (Negative)
[2018-04-05 16:30] LABS: EGFR Non-African American 55.7 (>60)
[2018-04-05] MEDS ORDERED: Acetaminophen TAB* 325 MG PO ONE (22:13)
--- NOTE | 2018-04-05 22:31 | ED ---
Progress - Progress Note Progress Note: Patient brought in for confusion with a history of alcoholism. She is being evaluated in mental health. They have decided to hold her over until morning for evaluation by the psychiatrist. She has remained stable. Course/Dx - Diagnoses Provider Diagnoses: Confusion, Alcoholism Discharge - Sign-Out/Discharge Documenting (check all that apply): Sign-Out Patient Signing out patient TO: Jag Caceres - Discharge Plan Condition: Stable Referrals: Buster Moore MD [Primary Care Provider] - - Billing Disposition and Condition Condition: STABLE
[2018-04-06] MEDS ORDERED: Acetaminophen TAB* 325 MG PO ONE (10:35)
--- NOTE | 2018-04-06 12:39 | PN ---
ED Flex Patient Progress Note Date of Service: 04/06/18 Subjective: This is a 78 year-old F who is pending admission to [facility] secondary to increasingly disorganized thinking and behavior and inability to care for herself. Pt is c/o "I just want to get the hell of of here!". Objective: Alert, oriented to place and person but not to time, calm, irritable affect, dysphoric mood, paranoid ideation, denies SI/HI or A/VH. Assessment: Alcohol use disorder; Unspecified cognitive disorder; r/o MDD, with psychotic features. Plan: Pending psychiatric admit to [facility]. Vital Signs Temp Pulse Resp BP Pulse Ox 97.4 F 67 16 153/91 91 04/06/18 07:59 04/06/18 07:59 04/06/18 07:59 04/06/18 07:59 04/05/18 18:26 Lab Results - Entire Visit 04/05/18 04/05/18 04/05/18 16:11 16:11 16:06 WBC RBC Hgb Hct MCV MCH MCHC RDW Plt Count MPV Neut % (Auto) Lymph % (Auto) Norton % (Auto) Eos % (Auto) Baso % (Auto) Absolute Neuts (auto) Absolute Lymphs (auto) Absolute Monos (auto) Absolute Eos (auto) Absolute Basos (auto) Absolute Nucleated RBC Nucleated RBC % Sodium 137 Potassium 3.9 Chloride 103 Carbon Dioxide 26 Anion Gap 8 BUN 11 Creatinine 0.97 H Est GFR ( Amer) 67.4 Est GFR (Non-Af Amer) 55.7 BUN/Creatinine Ratio 11.3 Glucose 105 H Calcium 9.4 Total Bilirubin 0.60 AST 23 ALT 18 Alkaline Phosphatase 63 Total Protein 7.3 Albumin 4.3 Globulin 3.0 Albumin/Globulin Ratio 1.4 TSH 1.38 Urine Color Yellow Urine Appearance Clear Urine pH 6.0 Ur Specific Lima 1.011 Urine Protein Negative Urine Ketones Negative Urine Blood Negative Urine Nitrate Negative Urine Bilirubin Negative Urine Urobilinogen Negative Ur Leukocyte Esterase Negative Urine Glucose Negative Salicylates < 2.50 Urine Opiates Screen None detected Acetaminophen < 15 Ur Barbiturates Screen None detected Ur Phencyclidine Scrn None detected Ur Amphetamines Screen None detected U Benzodiazepines Scrn None detected Urine Cocaine Screen None detected U Cannabinoids Screen None detected Serum Alcohol < 10 04/05/18 16:06 WBC 8.1 RBC 4.67 Hgb 13.7 Hct 41 MCV 87 MCH 29 MCHC 34 RDW 15 Plt Count 340 MPV 6.8 L Neut % (Auto) 57.6 Lymph % (Auto) 31.9 Norton % (Auto) 7.6 H Eos % (Auto) 1.7 Baso % (Auto) 1.2 Absolute Neuts (auto) 4.7 Absolute Lymphs (auto) 2.6 Absolute Monos (auto) 0.6 Absolute Eos (auto) 0.1 Absolute Basos (auto) 0.1 Absolute Nucleated RBC 0 Nucleated RBC % 0.1 Sodium Potassium Chloride Carbon Dioxide Anion Gap BUN Creatinine Est GFR ( Amer) Est GFR (Non-Af Amer) BUN/Creatinine Ratio Glucose Calcium Total Bilirubin AST ALT Alkaline Phosphatase Total Protein Albumin Globulin Albumin/Globulin Ratio TSH Urine Color Urine Appearance Urine pH Ur Specific Lima Urine Protein Urine Ketones Urine Blood Urine Nitrate Urine Bilirubin Urine Urobilinogen Ur Leukocyte Esterase Urine Glucose Salicylates Urine Opiates Screen Acetaminophen Ur Barbiturates Screen Ur Phencyclidine Scrn Ur Amphetamines Screen U Benzodiazepines Scrn Urine Cocaine Screen U Cannabinoids Screen Serum Alcohol
[2018-04-06] MEDS ORDERED: CMC: Pantoprazole TAB (NF) 40 MG TAB PO PRN (12:43)
--- NOTE | 2018-04-06 14:13 | ED ---
Eddie Bentley Jacob, scribed for Jag Caceres MD on 04/06/18 at 1335 . Progress - Progress Note Progress Note: Pt received from Dr. Elliott. After MHE and consultation with Dr. Pyle, she will be admitted to hospital w/ a diagnosis of depressive disorder NOS. Course/Dx - Diagnoses Provider Diagnoses: Depressive disorder Discharge - Sign-Out/Discharge Documenting (check all that apply): Discharge/Admit/Transfer - admit Receiving patient FROM: Emigdio Elliott - Discharge Plan Condition: Stable Disposition: PSYCHIATRIC FACILITY-[facility] Referrals: Buster Moore MD [Primary Care Provider] - The documentation as recorded by the Eddie bee Jacob accurately reflects the service I personally performed and the decisions made by Nicki gerard Jerry, MD.
[2018-04-06] MEDS: amLODIPine TAB* 5 MG PO SCH (22:34)
[2018-04-06] MEDS: Potassium Chlor TAB* 10 MEQ TAB.ER PO SCH (22:34)
[2018-04-06] MEDS: Losartan TAB* 25 MG PO SCH (22:34)
[2018-04-06] MEDS: Pregabalin CAP(*) 25 MG PO PRN (23:41)
[2018-04-07] MEDS: Oxybutynin XL TAB* 5 MG PO SCH ×2 (00:25→20:34)
[2018-04-07] MEDS: Atorvastatin* 10 MG TAB PO SCH (08:06)
[2018-04-07] MEDS: Clopidogrel TAB* 75 MG PO SCH (08:06)
[2018-04-07] MEDS: amLODIPine TAB* 5 MG PO SCH (08:06)
[2018-04-07] MEDS: Potassium Chlor TAB* 10 MEQ TAB.ER PO SCH ×2 (08:06→20:34)
[2018-04-07] MEDS: Pregabalin CAP(*) 25 MG PO PRN ×2 (08:09→23:00)
[2018-04-07] MEDS: Losartan TAB* 25 MG PO SCH (11:13)
--- NOTE | 2018-04-07 18:55 | HP ---
HISTORY AND PHYSICAL: DATE OF ADMISSION: 04/06/18 IDENTIFYING DATA: Linda is a 78-year-old female with at least 3 prior psychiatric hospitalizations on this unit, her last one being in October 2016. iLnda was brought to the emergency department by EMS following a report by home health agency who came to visit her and found out her living environment was unsafe and she could not live there without further assistance. The home health agency was sent due to the request by her primary care physician, Dr. Moore. In the emergency department, Linda verbalized some suicidal ideation but that was very vague. Today, during the interview Linda denies any such statement, although she said that she usually will make statements which might sound like she is suicidal. She said that she would not mind if she was because she has nothing to look forward to and nothing going on in her life at this time but she categorically denies that she ever had thought about ending her life in the recent past. During the interview , Linda also vehemently denies any symptoms reminiscent of depression, hypomania, oc, or psychosis. She reports that she feels sad and lonely since her about 6 years ago. She does not have much communication with her children as well as her 9 grandchildren. She also does not have any contact with people in the society as well, so she is pretty much alone by herself in the country and loneliness is the only problem she has. In the recent past, her toilet broke down and was not flushing. When the visiting nurse came as per the request of her primary doctor, they found that out and decided to send her to the emergency room because she was not safe in that environment by herself. Moreover, according to their assessment, she could not care for herself without a more structured environment. PAST PSYCHIATRIC HISTORY: Linda has 3 prior psychiatric hospitalizations; first one in September 2013, second August 2015, and third October 2016. She was diagnosed with major depressive disorder and alcohol use disorder in the past. She was tried on multiple antidepressants including Cymbalta, Celexa, Lexapro, and Xanax in the past. During her last hospitalization, she was stabilized without any antidepressants or antipsychotics. The only medicine I can see that she was taking around that time was trazodone 50 mg at bedtime. PAST MEDICAL HISTORY: Remarkable for history of hypertension, hyperlipidemia, history of DVT and pulmonary embolism, urinary incontinence, history of right knee surgery, bilateral stents in her legs, status post tubal ligation, and history of left hip injury. MEDICATIONS: Her current medications include: 1. Amlodipine 5 mg daily. 2. Lipitor 5 mg daily. 3. Plavix 75 mg daily. 4. Cozaar 50 mg daily. 5. Ditropan 10 mg daily. 6. Trazodone 50 mg at bedtime. ALLERGIES: The list is long and includes POLYMYXIN, ADHESIVE TAPES, CIPROFLOXACIN, ARTHROTEC, ERYTHROMYCIN, TOPROL, FENTANYL, NEOSPORIN, BACITRACIN , HYDROCODONE, DICLOFENAC, MISOPROSTOL, and TYLENOL. SUBSTANCE ABUSE HISTORY: Although she has a long history of problem drinking, she denies any current use of alcohol; however, there was a report by her daughter who is a nurse practitioner indicating that she might be using alcohol. She denies any history of involvement with self-help groups or any rehab. She also denies any recent tobacco use and she quit in 1998. FAMILY HISTORY: Significant for a brother who suffers from PTSD due to combat services in [place]. She also reported that her second daughter has bipolar and alcohol use disorder. PERSONAL AND SOCIAL HISTORY: Born and raised in [facility] in [place], [place]. She has 3 daughters from 2 different marriages. She was for the third time and that marriage was very loving and caring who 6 years ago. Her oldest daughter is Anitra, who is a nurse practitioner and there are two other daughters. As mentioned earlier, Linda was 3 times, twice. Her daughters were born from first 2 marriages. Her third was very good to her and about 8 years ago after 44 years of marriage. Linda lived in [facility] since 1998. 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 She reported that she has 9 grandchildren, but record indicate that she has 10 grandchildren. She denies any legal problems. She is a Pentecostal but is not sure what denomination, said she was Orthodoxy at one point, may be a Shinto now. PHYSICAL EXAMINATION GENERAL: Linda does not appear to be in any kind of physical distress at this time. VITAL SIGNS: Indicate a blood pressure of 142/89, pulse 83, respirations 18, temperature 98, pulse ox 100% on room air. HEENT: Head is atraumatic, normocephalic. NECK: Supple with midline trachea. No lymphadenopathy or thyromegaly. CHEST: Clear to auscultation bilaterally. CARDIOVASCULAR: Normal heart sounds with S1 and S2 only. No gallops or murmurs. ABDOMEN: Flat, soft, nontender without any organomegaly. Bowel sounds positive in all 4 quadrants. MUSCULOSKELETAL: Difficult but has full range of motion in both upper and lower extremities. No evidence of edema. NEUROLOGIC: Grossly intact. Cranial nerves II through XII appears to be grossly intact. LABORATORY DATA: Labs done in the emergency department reviewed, does not show any abnormalities. Labs included CBC with differential, comprehensive metabolic profile, urinalysis, and tox screen. All of them are unremarkable. MENTAL STATUS EXAM: Linda is a thin framed, average height white female wearing hospital scrubs and walking with the help of a walker. She is alert and oriented to time, place, and person. Speech is normal in all spheres. Describes her mood as "okay." Observed affect appears to be euthymic. Intelligence appears to be average as evidenced by her vocabulary and fund of knowledge. Memory functions are intact in all spheres. Denies any delusions or hallucinations at this time. Also denies any thoughts of hurting self or others. Her insight and judgment appears to be fair to good. SUMMARY: This 78-year-old female with at least 3 prior psychiatric hospitalizations on this unit almost under similar circumstances in the past was brought into the emergency room due to a report by the home healthcare nurse that she was unsafe in her current home environment and needed evaluation of her situation. Her primary care physician thought she might be suffering from major neurocognitive disorder/dementia, which I find it difficult to diagnose at this time. DIAGNOSTIC IMPRESSION: MENTAL HEALTH DIAGNOSIS: Adjustment disorder with depressed mood, rule out major depressive disorder, rule out mild cognitive impairment. PHYSICAL HEALTH DIAGNOSES: 1. Hypertension. 2. Hyperlipidemia. 3. History of deep venous thrombosis and pulmonary embolism. 4. Urinary incontinence. 5. Status post right knee surgery. 6. History of bilateral stents in her legs. 7. History of left hip surgery. TREATMENT RECOMMENDATIONS: Linda will remain hospitalized on the behavioral health unit for her safety and reassessment of her situation at home. Her code status will remain full. Supportive milieu, individual and group therapy will be initiated. I will continue her on her outpatient medications and defer any changes in her psychopharmacological treatment to her assigned psychiatrist and I doubt that she will need any additional medications for mental health reasons. A neurological consult will be helpful if doable while she is here to rule out major neurocognitive disorder/dementia. On the unit if possible, a neuropsych testing will be helpful as well. I think she might need only few days of hospitalization to reassess her living situation and then fix the problem and then send her out. If she is agreeable to go to an adult care facility, that will be a good idea as she is incapable of caring for self in her own house. [id number]/[facility] #: [id number] HEATH
--- NOTE | 2018-04-08 06:42 | ED ---
Dorita Bentley Emily, scribed for Kwesi Barlow on 04/05/18 at 1603 . Psychiatric Complaint - HPI Summary HPI Summary: This patient is a 78 year old F BIBA to [facility] with concerns for being unsafe at home. The patient rates the pain 3/10 in severity. Symptoms aggravated by nothing. Symptoms alleviated by nothing. Patient reports hip pain. Patient denies CP, SOB, and SI. Per EMS, the patient was found with medications strewn about her house and with no working plumbing. The visiting nursing service called her PCP, who referred her to the ED. - History Of Current Complaint Time Seen by Provider: 04/05/18 15:47 Hx Obtained From: Patient, EMS ?: No Onset/Duration: Sudden Onset, Lasting Hours, Still Present Timing: Constant Severity Initially: Mild Severity Currently: Mild Aggravating Factor(s): Nothing Alleviating Factor(s): Nothing Has Suicidal: Denies: Thoughts - Allergies/Home Medications Allergies/Adverse Reactions: Allergies Allergy/AdvReac Type Severity Reaction Status Date / Time Adhesive Tape Allergy Severe Blisters Verified 04/07/18 00:29 bacitracin Allergy Blisters Verified 04/07/18 00:29 [From Neosporin ([id number])] cefazolin Allergy Unknown Verified 04/07/18 00:29 Reaction Details ciprofloxacin Allergy Unknown Verified 04/07/18 00:29 Reaction Details diclofenac [From Arthrotec] Allergy GI Upset Verified 04/07/18 00:29 erythromycin base Allergy Unknown Verified 04/07/18 00:29 Reaction Details fentanyl Allergy Unknown Verified 04/07/18 00:29 Reaction Details hydrocodone Allergy Unknown Verified 04/07/18 00:29 Reaction Details metoprolol Allergy Unknown Verified 04/07/18 18:25 Reaction Details misoprostol [From Arthrotec] Allergy GI Upset Verified 04/07/18 00:29 mupirocin [From Bactroban] Allergy Blisters Verified 04/07/18 18:20 neomycin Allergy Blisters Verified 04/07/18 00:29 [From Neosporin ([id number])] Penicillins Allergy Unknown Verified 04/07/18 00:29 Reaction Details polymyxin B Allergy Blisters Verified 04/07/18 00:29 [From Neosporin ([id number])] Hair Dye Allergy Intermediate Blisters Uncoded 04/07/18 00:29 Seasonal/Environmental Allergy Intermediate Coughing Uncoded 04/07/18 00:29 PMH/Surg Hx/FS Hx/Imm Hx Previously Healthy: No Endocrine/Hematology History: Reports: Hx Thyroid Disease - Nodule, needs follow up, Hx Anemia Denies: Hx Bone Marrow Disease, Hx Diabetes, Hx Sickle Cell Disease Cardiovascular History: Reports: Hx Coronary Artery Disease, Hx Deep Vein Thrombosis, Hx Hypercholesterolemia, Hx Hypertension, Hx Syncope Denies: Hx Congestive Heart Failure, Hx Pacemaker/ICD Respiratory History: Reports: Hx Asthma - Seasonal, Hx Pneumonia, Hx Pulmonary Embolism, Hx Seasonal Allergies Denies: Hx Chronic Obstructive Pulmonary Disease (COPD) GI History: Reports: Hx Gastroesophageal Reflux Disease, Hx Gastrointestinal Bleed Denies: Hx Ulcer History: Denies: Hx Renal Disease Musculoskeletal History: Reports: Hx Arthritis, Hx Back Problems, Other Musculoskeletal History - hx right heel ulcers Sensory History: Reports: Hx Cataracts - bilat Denies: Hx Contacts or Glasses - not with pt, Hx Hearing Aid, Other Sensory Impairments Opthamlomology History: Reports: Hx Cataracts - bilat Denies: Hx Contacts or Glasses - not with pt, Other Sensory Impairments Neurological History: Reports: Hx Headaches, Hx Migraine - 3 in lifetime, Hx Transient Ischemic Attacks (TIA) Denies: Hx Dementia, Hx Developmental Delay, Hx Nerve Disease, Hx Seizures, Hx Spinal Cord Injury Comment Only: Other Neuro Impairments/Disorders - hx lumbar stenosis Psychiatric History: Reports: Hx Anxiety, Hx Depression, Hx Inpatient Treatment , Hx Substance Abuse, Other Psychiatric Issues/Disorders - Previous suicide attempt 2012 , delirium Denies: Hx Eating Disorder, Hx Panic Disorder, Hx Community Mental Health Tx , Hx of Violent Episodes Against Others - Surgical History Surgery Procedure, Year, and Place: Tubal ligation 1971, right knee surgery 1984, Removal of lesions on skin all benign, RIGHT LEG ARTERIAL STENT, exploratory surgery[place] [facility] [place] Hx Anesthesia Reactions: No Infectious Disease History: No Infectious Disease History: Reports: Hx of Known/Suspected MRSA - in foot; per pt resolved Denies: Hx Hepatitis, Hx Human Immunodeficiency Virus (HIV), Traveled Outside the [place] in Last 30 Days - Family History Known Family History: Positive: Cardiac Disease - father, Hypertension - mother , Other - cancer- mother, sister - Social History Occupation: Retired Lives: Alone Alcohol Use: UTD Alcohol Amount: 1/2 drink a day Substance Use Type: Reports: None Hx Tobacco Use: Yes Smoking Status (MU): Unknown if Ever Smoked Type: Cigarettes Amount Used/How Often: smoked for 45 years, a carton a week Length of Time of Smoking/Using Tobacco: 60 years Have You Smoked in the Last Year: No Review of Systems Negative: Chest Pain Negative: Shortness Of Breath Positive: Other - Positive hip pain Positive: Other - Negative SI All Other Systems Reviewed And Are Negative: Yes Physical Exam - Summary Physical Exam Summary: Appearance: Well appearing, no pain distress Skin: warm, dry, reflects adequate perfusion Head/face: normal Eyes: EOMI, CISCO ENT: normal Neck: supple, non-tender Respiratory: CTA, breath sounds present Cardiovascular: RRR, pulses symmetrical Abdomen: non-tender, soft Bowel: present Musculoskeletal: normal, strength/ROM intact Neuro: normal, sensory motor intact, A&Ox3 Triage Information Reviewed: Yes Vital Signs On Initial Exam: Initial Vitals Temp Pulse Resp BP Pulse Ox 98.0 F 83 18 143/89 100 04/05/18 15:47 04/05/18 15:47 04/05/18 15:47 04/05/18 15:47 04/05/18 15:47 Vital Signs Reviewed: Yes Diagnostics - Vital Signs Vital Signs Temp Pulse Resp BP Pulse Ox 04/05/18 15:47 98.0 F 83 18 143/89 100 - Laboratory Lab Results: Lab Results 04/05/18 04/05/18 04/05/18 Range/Units 16:06 16:06 16:11 WBC 8.1 (3.5-10.8) 10^3/ul RBC 4.67 (4.00-5.40) 10^6/ul Hgb 13.7 (12.0-16.0) g/dl Hct 41 (35-47) % MCV 87 (80-97) fL MCH 29 (27-31) pg MCHC 34 (31-36) g/dl RDW 15 (10.5-15) % Plt Count 340 (150-450) 10^3/ul MPV 6.8 L (7.4-10.4) um3 Neut % (Auto) 57.6 (38-83) % Lymph % (Auto) 31.9 (25-47) % Kay % (Auto) 7.6 H (0-7) % Eos % (Auto) 1.7 (0-6) % Baso % (Auto) 1.2 (0-2) % Absolute Neuts (auto) 4.7 (1.5-7.7) 10^3/ul Absolute Lymphs (auto) 2.6 (1.0-4.8) 10^3/ul Absolute Monos (auto) 0.6 (0-0.8) 10^3/ul Absolute Eos (auto) 0.1 (0-0.6) 10^3/ul Absolute Basos (auto) 0.1 (0-0.2) 10^3/ul Absolute Nucleated RBC 0 10^3/ul Nucleated RBC % 0.1 Sodium 137 (135-145) mmol/L Potassium 3.9 (3.5-5.0) mmol/L Chloride 103 (101-111) mmol/L Carbon Dioxide 26 (22-32) mmol/L Anion Gap 8 (2-11) mmol/L BUN 11 (6-24) mg/dL Creatinine 0.97 H (0.51-0.95) mg/dL Est GFR ( Amer) 67.4 (>60) Est GFR (Non-Af Amer) 55.7 (>60) BUN/Creatinine Ratio 11.3 (8-20) Glucose 105 H (70-100) mg/dL Calcium 9.4 (8.6-10.3) mg/dL Total Bilirubin 0.60 (0.2-1.0) mg/dL AST 23 (13-39) U/L ALT 18 (7-52) U/L Alkaline Phosphatase 63 (34-104) U/L Total Protein 7.3 (6.4-8.9) g/dL Albumin 4.3 (3.2-5.2) g/dL Globulin 3.0 (2-4) g/dL Albumin/Globulin Ratio 1.4 (1-3) TSH 1.38 (0.34-5.60) mcIU/mL Urine Color Yellow Urine Appearance Clear Urine pH 6.0 (5-9) Ur Specific Linden 1.011 (1.010-1.030) Urine Protein Negative (Negative) Urine Ketones Negative (Negative) Urine Blood Negative (Negative) Urine Nitrate Negative (Negative) Urine Bilirubin Negative (Negative) Urine Urobilinogen Negative (Negative) Ur Leukocyte Esterase Negative (Negative) Urine Glucose Negative (Negative) Salicylates < 2.50 (<30) mg/dL Urine Opiates Screen (None Detect) Acetaminophen < 15 mcg/mL Ur Barbiturates Screen (None Detect) Ur Phencyclidine Scrn (None Detect) Ur Amphetamines Screen (None Detect) U Benzodiazepines Scrn (None Detect) Urine Cocaine Screen (None Detect) U Cannabinoids Screen (None Detect) Serum Alcohol < 10 (<10) mg/dL 04/05/18 Range/Units 16:11 WBC (3.5-10.8) 10^3/ul RBC (4.00-5.40) 10^6/ul Hgb (12.0-16.0) g/dl Hct (35-47) % MCV (80-97) fL MCH (27-31) pg MCHC (31-36) g/dl RDW (10.5-15) % Plt Count (150-450) 10^3/ul MPV (7.4-10.4) um3 Neut % (Auto) (38-83) % Lymph % (Auto) (25-47) % Kay % (Auto) (0-7) % Eos % (Auto) (0-6) % Baso % (Auto) (0-2) % Absolute Neuts (auto) (1.5-7.7) 10^3/ul Absolute Lymphs (auto) (1.0-4.8) 10^3/ul Absolute Monos (auto) (0-0.8) 10^3/ul Absolute Eos (auto) (0-0.6) 10^3/ul Absolute Basos (auto) (0-0.2) 10^3/ul Absolute Nucleated RBC 10^3/ul Nucleated RBC % Sodium (135-145) mmol/L Potassium (3.5-5.0) mmol/L Chloride (101-111) mmol/L Carbon Dioxide (22-32) mmol/L Anion Gap (2-11) mmol/L BUN (6-24) mg/dL Creatinine (0.51-0.95) mg/dL Est GFR ( Amer) (>60) Est GFR (Non-Af Amer) (>60) BUN/Creatinine Ratio (8-20) Glucose (70-100) mg/dL Calcium (8.6-10.3) mg/dL Total Bilirubin (0.2-1.0) mg/dL AST (13-39) U/L ALT (7-52) U/L Alkaline Phosphatase (34-104) U/L Total Protein (6.4-8.9) g/dL Albumin (3.2-5.2) g/dL Globulin (2-4) g/dL Albumin/Globulin Ratio (1-3) TSH (0.34-5.60) mcIU/mL Urine Color Urine Appearance Urine pH (5-9) Ur Specific Linden (1.010-1.030) Urine Protein (Negative) Urine Ketones (Negative) Urine Blood (Negative) Urine Nitrate (Negative) Urine Bilirubin (Negative) Urine Urobilinogen (Negative) Ur Leukocyte Esterase (Negative) Urine Glucose (Negative) Salicylates (<30) mg/dL Urine Opiates Screen None detected (None Detect) Acetaminophen mcg/mL Ur Barbiturates Screen None detected (None Detect) Ur Phencyclidine Scrn None detected (None Detect) Ur Amphetamines Screen None detected (None Detect) U Benzodiazepines Scrn None detected (None Detect) Urine Cocaine Screen None detected (None Detect) U Cannabinoids Screen None detected (None Detect) Serum Alcohol (<10) mg/dL Result Diagrams: 04/05/18 16:06 04/05/18 16:06 Lab Statement: Any lab studies that have been ordered have been reviewed, and results considered in the medical decision making process. Course/Dx - Differential Dx/Clinical Impression Differential Diagnosis/HQI/PQRI: Positive: Alcohol Intoxication Provider Diagnosis: Depressive disorder, Dementia, Alcohol abuse Discharge - Sign-Out/Discharge Documenting (check all that apply): Sign-Out Patient Signing out patient TO: Emigdio Elliott - Discharge Plan Condition: Stable Disposition: PSYCHIATRIC FACILITY-[facility] - Billing Disposition and Condition Condition: STABLE Disposition: Psychiatric Facility [facility] The documentation as recorded by the Dorita bee Emily accurately reflects the service I personally performed and the decisions made by Cain gerard Emmanuel.
[2018-04-08] MEDS: Pregabalin CAP(*) 25 MG PO PRN (08:10)
[2018-04-08] MEDS: Losartan TAB* 25 MG PO SCH (08:12)
[2018-04-08] MEDS: Atorvastatin* 10 MG TAB PO SCH (08:12)
[2018-04-08] MEDS: amLODIPine TAB* 5 MG PO SCH (08:13)
[2018-04-08] MEDS: Clopidogrel TAB* 75 MG PO SCH (08:13)
[2018-04-08] MEDS: Potassium Chlor TAB* 10 MEQ TAB.ER PO SCH ×2 (08:14→20:55)
[2018-04-08] MEDS: Oxybutynin XL TAB* 5 MG PO SCH (20:55)
[2018-04-08] MEDS: Acetaminophen TAB* 325 MG PO PRN (20:56)
[2018-04-09] MEDS: Pregabalin CAP(*) 25 MG PO PRN ×2 (03:23→16:16)
[2018-04-09] MEDS: Acetaminophen TAB* 325 MG PO PRN ×3 (03:24→21:07)
[2018-04-09] MEDS: Losartan TAB* 25 MG PO SCH (08:20)
[2018-04-09] MEDS: Clopidogrel TAB* 75 MG PO SCH (08:20)
[2018-04-09] MEDS: amLODIPine TAB* 5 MG PO SCH (08:20)
[2018-04-09] MEDS: Potassium Chlor TAB* 10 MEQ TAB.ER PO SCH ×2 (08:20→21:05)
[2018-04-09] MEDS: Atorvastatin* 10 MG TAB PO SCH (08:21)
--- NOTE | 2018-04-09 15:09 | PN ---
Subjective - Subjective Date of Service: 04/09/18 Service Type: [id number] Hosp care 25 min moderate complexity Subjective: Vannessa appears euthymic and social on the unit, doing a puzzle with peers. She tells me that she is depressed though and "I want to , sure." This is because she is alone and her is for close to 6 years. "I'm not going to do anything about it. It's not like I'm going to hurt myself. I just miss my and want to be back with him." She initially makes statements to the effect that she is safe to return to her home in [place], [place], however, upon further questioning, she admits that this is not the best option and that she needs assisted living. "I'm not going anywhere I can't take my little do though." I spoke with her eldest daughter, Brielle Rosales ([phone] ) who voices frustration over dealing with the patient's dependent and passive aggressive personality style. She is willing, however, to take an active role in facilitating the patient's move into an appropriate residential situation. Vannessa denies neurovegetative depressive symptoms. Objective - Appearance Appearance: Thin Framed Dysmorphic Features: No Hygiene: Normal Grooming: Fairly Well Kept - Behavior Psychomotor Activities: Normal Exhibits Abnormal Movement: No - Attitude and Relatedness Attitude and Relatedness: Cooperative Eye Contact: Fair - Speech Quality: Unpressured Latencies: Normal Quantity: Appropriate - Mood Patient's Decription of Mood: "Sad" - Affect Observed Affect: Fair Affect Consistent with: Euthymia - Thought Process Patient's Thought Process: Coherent Thought Content: Yes Passive Wish, No Suicidal Planning, No Homicidal Ideation, No Paranoid Ideation - Sensorium Experiencing Hallucinations: No, Sensorium is Clear Type of Hallucinations: Visual: No, Auditory: No, Command: No - Level of Consciousness Level of Consciousness: Alert Orientation: Yes Intact, Yes Orientated to Time, Yes Orientated to Place, Yes Orientated to Person - Impulse Control Impulse Control: Tenuous - Insight and Judgement Insight and Judgement: Fair - Group Participation Particating in Group Activities: Yes - Medication Management Medication Management Adherence: Yes Assessment - Assessment Merits Inpatient Hospitalization: For Immediate Safety, For Stabilization Inpatient DSM-V Dx: F34.1 Clinical Impression: 78 y.o. , white female with a history of alcoholism, chronic depression and worsening independent functioning at home in her small house in [place], [place], referred by visiting nursing service providers who discovered her at home in a pool of urine, who is admitted to the [facility] on involuntary 9.39 legal status after making passive suicidal statements in the ED during evaluation. Plan - Plan Treatment Plan: Name: VANNESSA GONCALVES Birthdate: 1940 [id number] The patient meets criteria for persistent depressive disorder, or dysthymic disorder. She is declining antidepressant therapy. Family and outpatient caregivers agree that she is increasingly unable to meet her own needs independently and would benefit from assisted living placement. Will work on this. Continue to treat on the inpatient unit. Continued Medication Management: Consider Medication Medications: Current Medications Acetaminophen (Tylenol Tab*) 650 mg PO Q4H PRN PRN Reason: PAIN/TEMP>101 Last Admin: 04/09/18 03:24 Dose: 650 mg Amlodipine Besylate (Norvasc Tab*) 10 mg PO DAILY [facility] Last Admin: 04/09/18 08:20 Dose: 10 mg Atorvastatin Calcium (Lipitor*) 5 mg PO QAM [facility] Last Admin: 04/09/18 08:21 Dose: 5 mg Clopidogrel Bisulfate (Plavix Tab*) 75 mg PO QAM [facility] Last Admin: 04/09/18 08:20 Dose: 75 mg Losartan Potassium (Cozaar Tab*) 100 mg PO DAILY [facility] Last Admin: 04/09/18 08:20 Dose: 100 mg Oxybutynin Chloride (Ditropan Xl Tab*) 15 mg PO QPM [facility] Last Admin: 04/08/18 20:55 Dose: 15 mg Pantoprazole Sodium (Protonix Tab (Nf)) 40 mg PO QAM PRN PRN Reason: INDIGESTION Potassium Chloride (Klor Con Er Tab*) 10 meq PO BID [facility] Last Admin: 04/09/18 08:20 Dose: 10 meq Pregabalin (Lyrica Cap(*)) 75 mg PO TID PRN PRN Reason: PAIN Last Admin: 04/09/18 03:23 Dose: 75 mg - Discharge Plan Discharge Plan: Inpatient Hospitalization
[2018-04-09] MEDS: Oxybutynin XL TAB* 5 MG PO SCH (21:04)
[2018-04-10] MEDS: Acetaminophen TAB* 325 MG PO PRN ×3 (06:35→23:55)
[2018-04-10] MEDS: amLODIPine TAB* 5 MG PO SCH (09:05)
[2018-04-10] MEDS: Potassium Chlor TAB* 10 MEQ TAB.ER PO SCH ×2 (09:05→21:40)
[2018-04-10] MEDS: Losartan TAB* 25 MG PO SCH (09:05)
[2018-04-10] MEDS: Clopidogrel TAB* 75 MG PO SCH (09:05)
[2018-04-10] MEDS: Atorvastatin* 10 MG TAB PO SCH (09:05)
--- NOTE | 2018-04-10 13:40 | PN ---
Subjective - Subjective Date of Service: 04/10/18 Service Type: 77843 Hosp care 15 min low complexity Subjective: Vannessa is in good spirits and denies SI. She continues to endorse her own need for a more supportive and structured living environment for after discharge. "Hey, I admit it. I can't live alone anymore. My body just isn't as strong as it used to be. I'm going to miss it though. I liked working outside on the weeds and things. Loved it." She continues to make passive aggressive statements about her eldest daughter, Brielle Rosales, whom she accuses of being controlling. "We'll look at Assisted Living places. Then whatever Brielle wants, I guess we'll go with that." Vannessa is encouraged to take a more active stance in the process of finding a new place to live. She is calm and cooperative throughout and has adjusted well to the unit. Objective - Appearance Appearance: Well Developed/Nourished Dysmorphic Features: No Hygiene: Normal Grooming: Well Kept - Behavior Psychomotor Activities: Normal Exhibits Abnormal Movement: No - Attitude and Relatedness Attitude and Relatedness: Cooperative Eye Contact: Good - Speech Quality: Unpressured Latencies: Normal Quantity: Appropriate - Mood Patient's Decription of Mood: "Good" - Affect Observed Affect: Fair Affect Consistent with: Euthymia - Thought Process Patient's Thought Process: Coherent Thought Content: No Passive Wish, No Suicidal Planning, No Homicidal Ideation, No Paranoid Ideation - Sensorium Experiencing Hallucinations: No, Sensorium is Clear Type of Hallucinations: Visual: No, Auditory: No, Command: No - Level of Consciousness Level of Consciousness: Alert Orientation: Yes Intact, Yes Orientated to Time, Yes Orientated to Place, Yes Orientated to Person - Impulse Control Impulse Control: Tenuous - Insight and Judgement Insight and Judgement: Fair - Group Participation Particating in Group Activities: Yes - Medication Management Medication Management Adherence: Yes Assessment - Assessment Merits Inpatient Hospitalization: Consolidate Improvements, Pending Safe DC Plan Inpatient DSM-V Dx: F34.1 Clinical Impression: 78 y.o. , white female with a history of alcoholism, chronic depression and worsening independent functioning at home in her small house in [place], [place], referred by visiting nursing service providers who discovered her at home in a pool of urine, who is admitted to the [facility] on involuntary 9.39 legal status after making passive suicidal statements in the ED during evaluation. Plan - Plan Treatment Plan: Name: VANNESSA GONCALVES Birthdate: 1940 [id number] The patient meets criteria for persistent depressive disorder, or dysthymic disorder. She is declining antidepressant therapy. Family and outpatient caregivers agree that she is increasingly unable to meet her own needs independently and would benefit from assisted living placement. Will work on this. Continue to treat on the inpatient unit. Continued Medication Management: Consider Medication Medications: Current Medications Acetaminophen (Tylenol Tab*) 650 mg PO Q4H PRN PRN Reason: PAIN/TEMP>101 Last Admin: 04/10/18 06:35 Dose: 650 mg Amlodipine Besylate (Norvasc Tab*) 10 mg PO DAILY [facility] Last Admin: 04/10/18 09:05 Dose: 10 mg Atorvastatin Calcium (Lipitor*) 5 mg PO QAM [facility] Last Admin: 04/10/18 09:05 Dose: 5 mg Clopidogrel Bisulfate (Plavix Tab*) 75 mg PO QAM [facility] Last Admin: 04/10/18 09:05 Dose: 75 mg Losartan Potassium (Cozaar Tab*) 100 mg PO DAILY [facility] Last Admin: 04/10/18 09:05 Dose: 100 mg Oxybutynin Chloride (Ditropan Xl Tab*) 15 mg PO QPM [facility] Last Admin: 04/09/18 21:04 Dose: 15 mg Pantoprazole Sodium (Protonix Tab (Nf)) 40 mg PO QAM PRN PRN Reason: INDIGESTION Potassium Chloride (Klor Con Er Tab*) 10 meq PO BID [facility] Last Admin: 04/10/18 09:05 Dose: 10 meq Pregabalin (Lyrica Cap(*)) 75 mg PO TID PRN PRN Reason: PAIN Last Admin: 04/09/18 16:16 Dose: 75 mg - Discharge Plan Discharge Plan: Inpatient Hospitalization
--- NOTE | 2018-04-10 13:51 | PN ---
MHU: Group Therapy Note - Service Type Service Type: 42601 Group Psychotherapy - Cognitive Behavioral Group Therapy ( CBT):Patient was attentive and participatory in CBT programming this morning, and remained in good behavioral control. Patient expressed positive insights regarding relevant treatment interventions and goals.
[2018-04-10] MEDS: Oxybutynin XL TAB* 5 MG PO SCH (18:53)
[2018-04-10] MEDS: Pregabalin CAP(*) 25 MG PO PRN (23:55)
[2018-04-11] MEDS: Acetaminophen TAB* 325 MG PO PRN (07:30)
[2018-04-11] MEDS: Pregabalin CAP(*) 25 MG PO PRN ×2 (09:16→20:36)
[2018-04-11] MEDS: Losartan TAB* 25 MG PO SCH (09:17)
[2018-04-11] MEDS: Atorvastatin* 10 MG TAB PO SCH (09:18)
[2018-04-11] MEDS: Potassium Chlor TAB* 10 MEQ TAB.ER PO SCH ×2 (09:20→20:36)
[2018-04-11] MEDS: amLODIPine TAB* 5 MG PO SCH (09:20)
[2018-04-11] MEDS: Clopidogrel TAB* 75 MG PO SCH (09:20)
--- NOTE | 2018-04-11 10:18 | PN ---
Subjective - Subjective Date of Service: 04/11/18 Service Type: 53881 Hosp care 15 min low complexity Subjective: Vannessa is in good spirits and looking forward to going home. She acknowledges the necessity of moving into an assisted living facility after discharge and commits to setting her financial affairs in order so that she can have the assets needed to afford AL. She continues to deny SI, saying "My mormon prohibits that. I don't want to spend eternity in a black hole." Objective - Appearance Appearance: Well Developed/Nourished Dysmorphic Features: No Hygiene: Normal Grooming: Well Kept - Behavior Psychomotor Activities: Normal Exhibits Abnormal Movement: No - Attitude and Relatedness Attitude and Relatedness: Cooperative Eye Contact: Fair - Speech Quality: Unpressured Latencies: Normal Quantity: Appropriate - Mood Patient's Decription of Mood: "Fine" - Affect Observed Affect: Fair Affect Consistent with: Euthymia - Thought Process Patient's Thought Process: Coherent Thought Content: No Passive Wish, No Suicidal Planning, No Homicidal Ideation, No Paranoid Ideation - Sensorium Experiencing Hallucinations: No, Sensorium is Clear Type of Hallucinations: Visual: No, Auditory: No, Command: No - Level of Consciousness Level of Consciousness: Alert Orientation: Yes Intact, Yes Orientated to Time, Yes Orientated to Place, Yes Orientated to Person - Impulse Control Impulse Control: Tenuous - Insight and Judgement Insight and Judgement: Fair - Group Participation Particating in Group Activities: Yes - Medication Management Medication Management Adherence: Yes Assessment - Assessment Merits Inpatient Hospitalization: Consolidate Improvements, Pending Safe DC Plan Inpatient DSM-V Dx: F34.1 Clinical Impression: 78 y.o. , white female with a history of alcoholism, chronic depression and worsening independent functioning at home in her small house in [place], [place], referred by visiting nursing service providers who discovered her at home in a pool of urine, who is admitted to the [facility] on involuntary 9.39 legal status after making passive suicidal statements in the ED during evaluation. Plan - Plan Treatment Plan: Name: VANNESSA GONCALVES Birthdate: 1940 [id number] The patient meets criteria for persistent depressive disorder, or dysthymic disorder. She is declining antidepressant therapy. Family and outpatient caregivers agree that she is increasingly unable to meet her own needs independently and would benefit from assisted living placement. Will work on this. Continue to treat on the inpatient unit. Continued Medication Management: Consider Medication Medications: Current Medications Acetaminophen (Tylenol Tab*) 650 mg PO Q4H PRN PRN Reason: PAIN/TEMP>101 Last Admin: 04/11/18 07:30 Dose: 650 mg Amlodipine Besylate (Norvasc Tab*) 10 mg PO DAILY [facility] Last Admin: 04/11/18 09:20 Dose: 10 mg Atorvastatin Calcium (Lipitor*) 5 mg PO QAM [facility] Last Admin: 04/11/18 09:18 Dose: 5 mg Clopidogrel Bisulfate (Plavix Tab*) 75 mg PO QAM [facility] Last Admin: 04/11/18 09:20 Dose: 75 mg Losartan Potassium (Cozaar Tab*) 100 mg PO DAILY [facility] Last Admin: 04/11/18 09:17 Dose: 100 mg Oxybutynin Chloride (Ditropan Xl Tab*) 15 mg PO QPM [facility] Last Admin: 04/10/18 18:53 Dose: 15 mg Pantoprazole Sodium (Protonix Tab (Nf)) 40 mg PO QAM PRN PRN Reason: INDIGESTION Potassium Chloride (Klor Con Er Tab*) 10 meq PO BID [facility] Last Admin: 04/11/18 09:20 Dose: 10 meq Pregabalin (Lyrica Cap(*)) 75 mg PO TID PRN PRN Reason: PAIN Last Admin: 04/11/18 09:16 Dose: 75 mg - Discharge Plan Discharge Plan: Inpatient Hospitalization
[2018-04-11] MEDS: Oxybutynin XL TAB* 5 MG PO SCH (20:36)
[2018-04-12] MEDS: Acetaminophen TAB* 325 MG PO PRN ×2 (07:54→19:22)
[2018-04-12] MEDS: amLODIPine TAB* 5 MG PO SCH (09:25)
[2018-04-12] MEDS: Clopidogrel TAB* 75 MG PO SCH (09:25)
[2018-04-12] MEDS: Potassium Chlor TAB* 10 MEQ TAB.ER PO SCH ×2 (09:25→21:01)
[2018-04-12] MEDS: Losartan TAB* 25 MG PO SCH (09:26)
[2018-04-12] MEDS: Atorvastatin* 10 MG TAB PO SCH (09:28)
--- NOTE | 2018-04-12 14:19 | PN ---
Subjective - Subjective Date of Service: 04/12/18 Service Type: [id number] Hosp care 15 min low complexity Subjective: Patient calm and cooperative. Still wants to return home and start the process of looking for an appropriate Assisted Living facility in the area. She is open to allowing her daughter, Brielle, to assist in this. She denies SI or HI and adherent with milieu expectations. Objective - Appearance Appearance: Well Developed/Nourished Dysmorphic Features: No Hygiene: Normal Grooming: Well Kept - Behavior Psychomotor Activities: Normal Exhibits Abnormal Movement: No - Attitude and Relatedness Attitude and Relatedness: Cooperative Eye Contact: Good - Speech Quality: Unpressured Latencies: Normal Quantity: Appropriate - Mood Patient's Decription of Mood: "Good" - Affect Observed Affect: Good Affect Consistent with: Euthymia - Thought Process Patient's Thought Process: Coherent Thought Content: No Passive Wish, No Suicidal Planning, No Homicidal Ideation, No Paranoid Ideation - Sensorium Experiencing Hallucinations: No, Sensorium is Clear Type of Hallucinations: Visual: No, Auditory: No, Command: No - Level of Consciousness Level of Consciousness: Alert Orientation: Yes Intact, Yes Orientated to Time, Yes Orientated to Place, Yes Orientated to Person - Impulse Control Impulse Control: Tenuous - Insight and Judgement Insight and Judgement: Fair - Group Participation Particating in Group Activities: Yes - Medication Management Medication Management Adherence: Yes Assessment - Assessment Merits Inpatient Hospitalization: Consolidate Improvements, Pending Safe DC Plan Inpatient DSM-V Dx: F34.1 Clinical Impression: 78 y.o. , white female with a history of alcoholism, chronic depression and worsening independent functioning at home in her small house in [place], [place], referred by visiting nursing service providers who discovered her at home in a pool of urine, who is admitted to the [facility] on involuntary 9.39 legal status after making passive suicidal statements in the ED during evaluation. Plan - Plan Treatment Plan: Name: VANNESSA GONCALVES Birthdate: 1940 [id number] The patient meets criteria for persistent depressive disorder, or dysthymic disorder. She is declining antidepressant therapy. Family and outpatient caregivers agree that she is increasingly unable to meet her own needs independently and would benefit from assisted living placement. Will work on this. [facility] discharge tomorrow, March 14, with f/u at [facility]. Continued Medication Management: Consider Medication Medications: Current Medications Acetaminophen (Tylenol Tab*) 650 mg PO Q4H PRN PRN Reason: PAIN/TEMP>101 Last Admin: 04/12/18 07:54 Dose: 650 mg Amlodipine Besylate (Norvasc Tab*) 10 mg PO DAILY [facility] Last Admin: 04/12/18 09:25 Dose: 10 mg Atorvastatin Calcium (Lipitor*) 5 mg PO QAM [facility] Last Admin: 04/12/18 09:28 Dose: 5 mg Clopidogrel Bisulfate (Plavix Tab*) 75 mg PO QAM [facility] Last Admin: 04/12/18 09:25 Dose: 75 mg Losartan Potassium (Cozaar Tab*) 100 mg PO DAILY [facility] Last Admin: 04/12/18 09:26 Dose: 100 mg Oxybutynin Chloride (Ditropan Xl Tab*) 15 mg PO QPM [facility] Last Admin: 04/11/18 20:36 Dose: 15 mg Pantoprazole Sodium (Protonix Tab (Nf)) 40 mg PO QAM PRN PRN Reason: INDIGESTION Potassium Chloride (Klor Con Er Tab*) 10 meq PO BID [facility] Last Admin: 04/12/18 09:25 Dose: 10 meq Pregabalin (Lyrica Cap(*)) 75 mg PO TID PRN PRN Reason: PAIN Last Admin: 04/11/18 20:36 Dose: 75 mg - Discharge Plan Discharge Plan: Outpatient Follow Up Outpatient Program: [facility]
[2018-04-12] MEDS: Oxybutynin XL TAB* 5 MG PO SCH (21:01)
[2018-04-12] MEDS: Pregabalin CAP(*) 25 MG PO PRN (21:01)
[2018-04-13] MEDS: Acetaminophen TAB* 325 MG PO PRN (04:35)
[2018-04-13 08:02] VITALS: BP 153/84
[2018-04-13] MEDS: Losartan TAB* 25 MG PO SCH (09:08)
[2018-04-13] MEDS: Clopidogrel TAB* 75 MG PO SCH (09:09)
[2018-04-13] MEDS: Atorvastatin* 10 MG TAB PO SCH (09:09)
[2018-04-13] MEDS: amLODIPine TAB* 5 MG PO SCH (09:10)
[2018-04-13] MEDS: Potassium Chlor TAB* 10 MEQ TAB.ER PO SCH (09:11)
--- NOTE | 2018-04-13 10:02 | PN ---
MHU: Group Therapy Note - Service Type Service Type: [id number] Group Psychotherapy - late entry for 04/12/18: Medication Education Group: Patient was attentive and participatory in group, and remained in good behavioral control. Patient expressed positive insights regarding relevant treatment interventions. Patient stated understanding of material discussed and had appropriate questions.
[2018-04-13] MEDS: Pregabalin CAP(*) 25 MG PO PRN (10:08)
--- NOTE | 2018-04-14 01:35 | DS ---
DISCHARGE SUMMARY: DATE OF ADMISSION: 04/06/18 DATE OF DISCHARGE: 04/13/18 DISCHARGE DIAGNOSES: As follows: [place] I: Persistent depressive disorder. [place] II: Deferred. CONDITION AT THE TIME OF DISCHARGE: Improved. The patient has denied suicidal ideations throughout this hospitalization. She steadfastly denies any thoughts of harming herself or others. She is adhe rent with indicated medications and she is willing to follow up with the [facility] after discharge. Linda has been fully participatory in all milieu activities and adherent with unit expectations. She has been safe on all checks. We have contacted her daughter, who is a local nurse practitioner, named Brielle Rosales, who indicates that her mother is safe to temporarily move home, so that family can find her an appropriate assisted living facility here in the area. Th ere is an acknowledgement that as she ages, she is not able to take care of her home anymore. We do not believe that she requires visiting nursing services; however, as the patient already has a home [facility] aide and has never had an issue packing her own medications. MENTAL STATUS EXAM AT THE TIME OF DISCHARGE: The patient is an aging white female, dressed in blue s crubs, who is ambulating with a walker. She is calm, polite, cooperative, makes good eye contact. H er speech has a normal rate, tone, and volume. Mood appears to be euthymic with a full affect. Thou ght process is linear and goal directed. Thought content is significant for her desire to return elenita e and take care of her dog. She is agreeable with finding an assisted living facility. She denies s uicidal or homicidal ideations. She denies auditory or visual hallucinations. Insight and judgement are fair given her willingness to follow up with outpatient mental health treatment. Cognitively, s he appears to be awake and alert, and I see no overt deficits in attention, orientation or recall. DISCHARGE INSTRUCTIONS: To the patient are as follows: Part A: Medications. She is takin. Amlodipine 5 mg daily. 2. Lipitor 5 mg daily. 3. Plavix 75 mg daily. 4. Cozaar 50 mg daily. 5. Ditropan 10 mg daily. 6. Trazodone 50 mg at bedtime. Part B: Diet is regular. Part C: Activities as tolerated. The patient is a nonsmoker. There are no laboratory or diagnostic studies pending at the time of discharge. Part D: Followup care. The patient will follow up with her primary care provider, Dr. Buster Moore, within 2 weeks of discharge. In addition, she has been referred to the [facility] for counseling, which she agrees to attend the intake appointment of within 1 week of discha rgfco. Part E: Substance abuse followup is nonapplicable. HOSPITAL COURSE: Part A: Reason for Admission: The patient is a 78-year-old white female w ith at least 3 prior psychiatric hospitalizations, the last being in October 2016, who was brought to the emergency department by EMS following a report by her home health agency who during a visit, attila nd that her living environment was unsafe and that she could not care for herself. The home health a gency was sent at the request of her primary care physician, Dr. Moore. In the emergency department , Linda verbalized passive suicidal ideation, which was somewhat vague. During her interview on [facility], she denied such statement and said that she will usually make these statements simply because she misses her and looks forward to the time that they can be together. She insist s that this does not mean that she will do anything to hasten her departure or to end her life. The patient denied symptoms of depression, hypomania, oc or psychosis. She did state that she feels s ad and lonely since the of her 6 years ago. She does not have much communication with her 3 children or her 9 grandchildren. She states that she lives alone in her house in [facility]. When asked about the visiting nurses insertion that she is not taking care of herself, she does admit that her toilet was broken and not flushing. Other than this, she insists that she is able to feed herself, cook, clean, and dress and bathe herself appropriately. Part B: Psychiatric treatment rendered: The patient was admitted to the [facility] where she was placed on q.15-minute checks for her own safety. She continued to deny suicidal idea tions and her level of observations was then decreased every 30 minutes. I screened the patient myse for neurovegetative symptoms of depression. She does appear to have chronic depressive symptoms, but without neurovegetative effects and we thought she met the criteria for persistent depressive dis order. She refused antidepressive medications, but was willing to start therapy at [facility]. I was able to get in touch with her daughter, Brielle, who indicated that she had nicolle e to Linda's house in [place] and found that it was actually in good repair other than a broken renaldo let handle. It appears that Linda has been doing an adequate job of taking care of herself. With that being said, Brielle did strongly encourage us to talk to the patient about the benefits of ass isted living as the patient is clearly getting older at this point. We had this discussion with Mateo obrien and she was very open to it admitting that she needs to be in a place with more activities and s ocialization. At this time, the plan is for her to be discharged home where she can get a real estat e agent and sell her home and some of her other belongings in order to liquidate the assets necessary to afford assisted living in the community. She has been safe on all checks and a pleasure to work w [employer]. We see no barrier to a safe discharge at this time. We do wish Linda the best for safe and healthy future and her followup will be at [facility]. [id number]/[facility] #: [id number]
== END 2018-04-13 13:25 | disposition home or self-care (01) | DRG 881 ==
LOC: ED 15:37 → BSU 04-06 22:26
PROVIDERS: ADMIT Psychiatry & Neurology Psychiatry; ATTEND Psychiatry & Neurology Psychiatry
PROC: GZHZZZZ Group Psychotherapy (ICD-10-PCS; principal; 2018-04-10)
DX: F34.1 Dysthymic disorder (principal); I10 Essential (primary) hypertension; R32 Unspecified urinary incontinence; F43.21 Adjustment disorder with depressed mood; E04.1 Nontoxic single thyroid nodule; I25.10 Atherosclerotic heart disease of native coronary artery without angina pectoris; J45.909 Unspecified asthma, uncomplicated; K21.9 Gastro-esophageal reflux disease without esophagitis; M19.90 Unspecified osteoarthritis, unspecified site; G43.909 Migraine, unspecified, not intractable, without status migrainosus; F41.9 Anxiety disorder, unspecified; H26.9 Unspecified cataract; F10.10 Alcohol abuse, uncomplicated; Y90.9 Presence of alcohol in blood, level not specified; F09 Unspecified mental disorder due to known physiological condition; E78.5 Hyperlipidemia, unspecified; Z86.718 Personal history of other venous thrombosis and embolism; Z86.711 Personal history of pulmonary embolism; Z95.828 Presence of other vascular implants and grafts; Z98.51 Tubal ligation status; Z88.6 Allergy status to analgesic agent; Z88.1 Allergy status to other antibiotic agents; Z88.8 Allergy status to other drugs, medicaments and biological substances; Z81.8 Family history of other mental and behavioral disorders; Z88.0 Allergy status to penicillin; Z91.048 Other nonmedicinal substance allergy status; Z87.01 Personal history of pneumonia (recurrent); Z86.73 Personal history of transient ischemic attack (TIA), and cerebral infarction without residual deficits; Z91.5 Personal history of self-harm; Z86.14 Personal history of Methicillin resistant Staphylococcus aureus infection; Z82.49 Family history of ischemic heart disease and other diseases of the circulatory system; Z80.9 Family history of malignant neoplasm, unspecified; Z79.02 Long term (current) use of antithrombotics/antiplatelets
CPT/HCPCS: 36415; 80053; 80307; 80320; 80329; 81003; 84443; 85025; 90853; 99222; 99231; 99232; 99238; 99283; A9270-GY; G0480; G8978-GP-CI; G8979-GP-CI; G8980-GP-CI

== ENCOUNTER 2019-05-15 14:23 | Emergency (ER) | payer BC, MEDICARE ==
[2019-05-15] MEDS ORDERED: NS 0.9% 1000 ML** 1,000 ML IV ONE (14:49)
[2019-05-15 15:21] LABS: ABS Basophils 0.1 10^3/ul (0-0.2); ABS Eosinophils 0.1 10^3/ul (0-0.6); ABS Lymphocytes 1.8 10^3/ul (1.0-4.8); ABS Monocytes 0.7 10^3/ul (0-0.8); ABS Neutrophils 5.5 10^3/ul (1.5-7.7); Eosinophil % 1.1 %; Hematocrit 40 % (35-47); Hemoglobin 13.3 g/dL (12.0-16.0); Lymphocyte % 21.7 %; Mean Corpuscular HGB Conc 34 g/dL (31-36); Mean Corpuscular Hemoglobin 28 pg (27-31); Mean Corpuscular Volume 82 fL (80-97); Mean Platelet Volume 7.1 fL (7.4-10.4); Platelet Count 272 10^3/uL (150-450); Red Blood Count 4.85 10^6 /uL (3.70-4.87); Red Cell Distribution Width 15 % (10-15); White Blood Count 8.2 10^3/uL (3.5-10.8)
[2019-05-15 15:30] LABS: Activated Partial Thrombo Time 25.5 seconds (26.0-38.0); INR 1.03 (0.82-1.09)
[2019-05-15 15:39] LABS: Albumin 4.5 g/dL (3.2-5.2); Albumin/Globulin Ratio 1.5 (1-3); BUN/Creatinine Ratio 20.6 (8-20); Calcium 9.3 mg/dL (8.6-10.3); EGFR African American 63.4 (>60); EGFR Non-African American 52.4 (>60); Magnesium 2.1 mg/dL (1.9-2.7); Potassium 3.8 mmol/L (3.5-5.0); Total Bilirubin 0.9 mg/dL (0.2-1.0); Total Protein 7.5 g/dL (6.4-8.9)
[2019-05-15 15:41] LABS: Troponin I 0.01 ng/mL (<0.04)
--- NOTE | 2019-05-15 15:53 | ED ---
Headache - HPI Summary HPI Summary: This pt is a 79 Y/O F presenting to [facility] with a CC of falling. She states that she has had multiple falls today and visited Dr. Batista for a check-up. She is currently on Plavix and rates the headache from her falls a 5/10 in severity. She states that she has been having multiple falls for the past few months. She denies any fever, chills, dizziness, CP, SOB, N/V, and weakness. She stated that she did not lose consciousness and usually walks with a walker. She states that she lives alone. She has a Hx of hypertension and takes blood thinners. - History Of Current Complaint Stated Complaint: MULTIPLE FALLS PER EMS Time Seen by Provider: 05/15/19 14:27 Hx Obtained From: Patient Onset/Duration: Sudden Onset Initially Headache Was: Moderate - Allergies/Home Medications Allergies/Adverse Reactions: Allergies Allergy/AdvReac Type Severity Reaction Status Date / Time Adhesive Tape Allergy Severe Blisters Verified 04/07/18 00:29 bacitracin Allergy Blisters Verified 04/07/18 00:29 [From Neosporin ([id number])] cefazolin Allergy Unknown Verified 04/07/18 00:29 Reaction Details ciprofloxacin Allergy Unknown Verified 04/07/18 00:29 Reaction Details diclofenac [From Arthrotec] Allergy GI Upset Verified 04/07/18 00:29 erythromycin base Allergy Unknown Verified 04/07/18 00:29 Reaction Details fentanyl Allergy Unknown Verified 04/07/18 00:29 Reaction Details hydrocodone Allergy Unknown Verified 04/07/18 00:29 Reaction Details metoprolol Allergy Unknown Verified 04/07/18 18:25 Reaction Details misoprostol [From Arthrotec] Allergy GI Upset Verified 04/07/18 00:29 mupirocin [From Bactroban] Allergy Blisters Verified 04/07/18 18:20 neomycin Allergy Blisters Verified 04/07/18 00:29 [From Neosporin ([id number])] Penicillins Allergy Unknown Verified 04/07/18 00:29 Reaction Details polymyxin B Allergy Blisters Verified 04/07/18 00:29 [From Neosporin ([id number])] Hair Dye Allergy Intermediate Blisters Uncoded 04/07/18 00:29 Seasonal/Environmental Allergy Intermediate Coughing Uncoded 06/30/18 00:29 Home Medications: Home Medications Acyclovir OINT 5%(NF) [Zovirax Oint 5%(NF)] 1 applic TOPICAL .FOUR TIMES A DAY PRN 05/15/19 [History Confirmed 05/15/19] Albuterol Sulfate [Proventil Hfa] 2 puff PO Q4HR PRN 05/15/19 [History Confirmed 05/15/19] Amlodipine Besylate [Norvasc] 10 mg PO DAILY 05/15/19 [History Confirmed ] Fluocinonide 0.05% CM (NF) [Lidex 0.05% CREAM (NF)] 1 applic TOPICAL DAILY 05/15 [History Confirmed 05/15/19] Gabapentin CAP(*) [Neurontin 100 mg CAP(*)] 300 mg PO BID 05/15/19 [History Confirmed 05/15/19] Levocetirizine Dihydrochloride [Levocetirizine Dihydrochl] 5 mg PO DAILY [History Confirmed 05/15/19] Multivitamins/Minerals TAB* [Theragran/minerals TAB*] 1 tab PO DAILY 05/15/19 [ History Confirmed 05/15/19] Coleman-3 Fatty Acids (Nf) [Fish Oil (NF)] 1,000 mg PO DAILY 05/15/19 [History Confirmed 05/15/19] cefUROXime axetil [Cefuroxime] 500 mg PO BID 05/15/19 [History Confirmed ] rOPINIRole TAB* [Requip TAB*] 1 - 3 mg PO BEDTIME PRN 05/15/19 [History Confirmed 05/15/19] traZODone TAB* [Desyrel TAB*] 150 mg PO BEDTIME 05/15/19 [History Confirmed 04/26] PMH/Surg Hx/FS Hx/Imm Hx Endocrine/Hematology History: Reports: Hx Thyroid Disease - Nodule, needs follow up, Hx Anemia Denies: Hx Bone Marrow Disease, Hx Diabetes, Hx Sickle Cell Disease Cardiovascular History: Reports: Hx Coronary Artery Disease, Hx Deep Vein Thrombosis, Hx Hypercholesterolemia, Hx Hypertension, Hx Syncope Denies: Hx Congestive Heart Failure, Hx Pacemaker/ICD Respiratory History: Reports: Hx Asthma - Seasonal, Hx Pneumonia, Hx Pulmonary Embolism, Hx Seasonal Allergies Denies: Hx Chronic Obstructive Pulmonary Disease (COPD) GI History: Reports: Hx Gastroesophageal Reflux Disease, Hx Gastrointestinal Bleed Denies: Hx Ulcer History: Denies: Hx Renal Disease Musculoskeletal History: Reports: Hx Arthritis, Hx Back Problems, Other Musculoskeletal History - hx right heel ulcers Sensory History: Reports: Hx Cataracts - bilat Denies: Hx Contacts or Glasses - not with pt, Hx Hearing Aid, Other Sensory Impairments Opthamlomology History: Reports: Hx Cataracts - bilat Denies: Hx Contacts or Glasses - not with pt, Other Sensory Impairments Neurological History: Reports: Hx Headaches, Hx Migraine - 3 in lifetime, Hx Transient Ischemic Attacks (TIA) Denies: Hx Dementia, Hx Developmental Delay, Hx Nerve Disease, Hx Seizures, Hx Spinal Cord Injury Comment Only: Other Neuro Impairments/Disorders - hx lumbar stenosis Psychiatric History: Reports: Hx Anxiety, Hx Depression, Hx Inpatient Treatment , Hx Substance Abuse, Other Psychiatric Issues/Disorders - Previous suicide attempt 2012 , delirium Denies: Hx Eating Disorder, Hx Panic Disorder, Hx Community Mental Health Tx , Hx of Violent Episodes Against Others - Surgical History Surgery Procedure, Year, and Place: Tubal ligation 1971, right knee surgery 1984, Removal of lesions on skin all benign 08/15, RIGHT LEG ARTERIAL STENT, exploratory surgery, cardiac cath at [facility] [place] 04/07/14 Hx Anesthesia Reactions: No Infectious Disease History: No Infectious Disease History: Reports: Hx of Known/Suspected MRSA - in foot; per pt resolved Denies: Hx Hepatitis, Hx Human Immunodeficiency Virus (HIV), Traveled Outside the in Last 30 Days - Family History Known Family History: Positive: Cardiac Disease - father, Hypertension - mother , Other - cancer- mother, sister - Social History Alcohol Use: Weekly Alcohol Amount: 1/2 drink a day Substance Use Type: Reports: None Hx Tobacco Use: Yes Smoking Status (MU): Unknown if Ever Smoked Type: Cigarettes Amount Used/How Often: smoked for 45 years, a carton a week Length of Time of Smoking/Using Tobacco: 60 years Have You Smoked in the Last Year: No Physical Exam Vital Signs On Initial Exam: Initial Vitals Temp Pulse Resp BP Pulse Ox 97.7 F 74 18 177/111 99 05/15/19 14:32 05/15/19 14:32 05/15/19 14:32 05/15/19 14:32 05/15/19 14:32 Diagnostics - Vital Signs Vital Signs Temp Pulse Resp BP Pulse Ox 05/15/19 15:20 18 170/115 05/15/19 15:03 20 195/110 05/15/19 15:00 17 05/15/19 14:33 76 23 177/111 96 05/15/19 14:32 97.7 F 74 26 177/111 99 - Laboratory Lab Results: Lab Results 05/15/19 05/15/19 05/15/19 Range/Units 15:10 15:15 15:15 WBC 8.2 (3.5-10.8) 10^3/uL RBC 4.85 (3.70-4.87) 10^6 /uL Hgb 13.3 (12.0-16.0) g/dL Hct 40 (35-47) % MCV 82 (80-97) fL MCH 28 (27-31) pg MCHC 34 (31-36) g/dL RDW 15 (10-15) % Plt Count 272 (150-450) 10^3/uL MPV 7.1 L (7.4-10.4) fL Neut % (Auto) 67.4 % Lymph % (Auto) 21.7 % [place] % (Auto) 8.5 % Eos % (Auto) 1.1 % Baso % (Auto) 1.3 % Absolute Neuts (auto) 5.5 (1.5-7.7) 10^3/ul Absolute Lymphs (auto) 1.8 (1.0-4.8) 10^3/ul Absolute Monos (auto) 0.7 (0-0.8) 10^3/ul Absolute Eos (auto) 0.1 (0-0.6) 10^3/ul Absolute Basos (auto) 0.1 (0-0.2) 10^3/ul Absolute Nucleated RBC 0.0 10^3/ul Nucleated RBC % 0.0 INR (Anticoag Therapy) 1.03 (0.82-1.09) APTT 25.5 L (26.0-38.0) seconds Sodium 135 (135-145) mmol/L Potassium 3.8 (3.5-5.0) mmol/L Chloride 103 (101-111) mmol/L Carbon Dioxide 23 (22-32) mmol/L Anion Gap 9 (2-11) mmol/L BUN 21 (6-24) mg/dL Creatinine 1.02 H (0.51-0.95) mg/dL Est GFR ( Amer) 63.4 (>60) Est GFR (Non-Af Amer) 52.4 (>60) BUN/Creatinine Ratio 20.6 H (8-20) Glucose 97 (70-100) mg/dL Lactic Acid (0.5-2.0) mmol/L Calcium 9.3 (8.6-10.3) mg/dL Magnesium 2.1 (1.9-2.7) mg/dL Total Bilirubin 0.90 (0.2-1.0) mg/dL AST 34 (13-39) U/L ALT 13 (7-52) U/L Alkaline Phosphatase 79 (34-104) U/L Troponin I 0.01 (<0.04) ng/mL B-Natriuretic Peptide (<=100) pg/mL Total Protein 7.5 (6.4-8.9) g/dL Albumin 4.5 (3.2-5.2) g/dL Globulin 3.0 (2-4) g/dL Albumin/Globulin Ratio 1.5 (1-3) 05/15/19 05/15/19 Range/Units 15:15 15:15 WBC (3.5-10.8) 10^3/uL RBC (3.70-4.87) 10^6 /uL Hgb (12.0-16.0) g/dL Hct (35-47) % MCV (80-97) fL MCH (27-31) pg MCHC (31-36) g/dL RDW (10-15) % Plt Count (150-450) 10^3/uL MPV (7.4-10.4) fL Neut % (Auto) % Lymph % (Auto) % [place] % (Auto) % Eos % (Auto) % Baso % (Auto) % Absolute Neuts (auto) (1.5-7.7) 10^3/ul Absolute Lymphs (auto) (1.0-4.8) 10^3/ul Absolute Monos (auto) (0-0.8) 10^3/ul Absolute Eos (auto) (0-0.6) 10^3/ul Absolute Basos (auto) (0-0.2) 10^3/ul Absolute Nucleated RBC 10^3/ul Nucleated RBC % INR (Anticoag Therapy) (0.82-1.09) APTT (26.0-38.0) seconds Sodium (135-145) mmol/L Potassium (3.5-5.0) mmol/L Chloride (101-111) mmol/L Carbon Dioxide (22-32) mmol/L Anion Gap (2-11) mmol/L BUN (6-24) mg/dL Creatinine (0.51-0.95) mg/dL Est GFR ( Amer) (>60) Est GFR (Non-Af Amer) (>60) BUN/Creatinine Ratio (8-20) Glucose (70-100) mg/dL Lactic Acid 0.9 (0.5-2.0) mmol/L Calcium (8.6-10.3) mg/dL Magnesium (1.9-2.7) mg/dL Total Bilirubin (0.2-1.0) mg/dL AST (13-39) U/L ALT (7-52) U/L Alkaline Phosphatase (34-104) U/L Troponin I (<0.04) ng/mL B-Natriuretic Peptide 69 (<=100) pg/mL Total Protein (6.4-8.9) g/dL Albumin (3.2-5.2) g/dL Globulin (2-4) g/dL Albumin/Globulin Ratio (1-3) Result Diagrams: 05/15/19 15:15 05/15/19 15:15 Lab Statement: Any lab studies that have been ordered have been reviewed, and results considered in the medical decision making process. - Radiology CXR Radiology Interpretation Completed By: Radiologist Summary of Radiographic Findings: No evidence for acute pulmonary diseases. ED Physician has reviewed this report. - EKG 1459 Cardiac Rate: NL - 71 BPM EKG Rhythm: Sinus Rhythm Summary of EKG Findings: NSR 71 BPM L axis deviation and Q waves seen in the anterior leads at 1459. Interpreted by Dr. Forde at 1529 05/15/19. Headache Course/Dx - Course Course Of Treatment: Her EKG shows the following: NSR 71 BPM L axis deviation and Q waves seen in the anterior leads 1459. CXR shows the following: No evidence for acute pulmonary diseases. Discharge - Discharge Plan Referrals: Buster Moore MD [Primary Care Provider] - - Attestation Statements Document Initiated by Scribe: Yes
--- NOTE | 2019-05-15 16:41 | ED ---
Head Injury - HPI Summary HPI Summary: This pt is a 79 Y/O F presenting to [facility] with a CC of falling. She states that she has had multiple falls today and visited Dr. Batista for a check-up. She is currently on Plavix and rates the headache from her falls a 5/10 in severity. She states that she has been having multiple falls for the past few months. She denies any fever, chills, dizziness, CP, SOB, N/V, and weakness. She stated that she did not lose consciousness and usually walks with a walker. She states that she lives alone. She has no aggravating or alleviating factors. She has a Hx of hypertension and takes blood thinners. - History Of Current Complaint Chief Complaint: EDHeadache Stated Complaint: MULTIPLE FALLS PER EMS Time Seen by Provider: 05/15/19 14:27 Hx Obtained From: Patient Mechanism Of Injury: Fall From A Standing Position Onset/Duration: Started Hours Ago, Resolved Onset of Pain: Immediate Severity Currently: Mild Severity Initially: Moderate Pain Intensity: 2 Pain Scale Used: 0-10 Numeric Location of Head Injury: Diffuse Aggravating Factor(s): Other: - nothing Alleviating Factor(s): OTC Medications` Associated Signs And Symptoms: Negative - fever, chills, dizziness, CP, SOB, N/V , and weakness., Headache - Allergies/Home Medications Allergies/Adverse Reactions: Allergies Allergy/AdvReac Type Severity Reaction Status Date / Time Adhesive Tape Allergy Severe Blisters Verified 04/07/18 00:29 bacitracin Allergy Blisters Verified 04/07/18 00:29 [From Neosporin ([id number])] cefazolin Allergy Unknown Verified 04/07/18 00:29 Reaction Details ciprofloxacin Allergy Unknown Verified 04/07/18 00:29 Reaction Details diclofenac [From Arthrotec] Allergy GI Upset Verified 04/07/18 00:29 erythromycin base Allergy Unknown Verified 04/07/18 00:29 Reaction Details fentanyl Allergy Unknown Verified 04/07/18 00:29 Reaction Details hydrocodone Allergy Unknown Verified 04/07/18 00:29 Reaction Details metoprolol Allergy Unknown Verified 04/07/18 18:25 Reaction Details misoprostol [From [employer]throtec] Allergy GI Upset Verified 04/07/18 00:29 mupirocin [From Bactroban] Allergy Blisters Verified 04/07/18 18:20 neomycin Allergy Blisters Verified 04/07/18 00:29 [From Neosporin ([id number])] Penicillins Allergy Unknown Verified 04/07/18 00:29 Reaction Details polymyxin B Allergy Blisters Verified 04/07/18 00:29 [From Neosporin ([id number])] Hair Dye Allergy Intermediate Blisters Uncoded 04/07/18 00:29 Seasonal/Environmental Allergy Intermediate Coughing Uncoded 04/07/18 00:29 Home Medications: Home Medications Acyclovir OINT 5%(NF) [Zovirax Oint 5%(NF)] 1 applic TOPICAL .FOUR TIMES A DAY PRN 05/15/19 [History Confirmed 05/15/19] Albuterol Sulfate [Proventil Hfa] 2 puff PO Q4HR PRN 05/15/19 [History Confirmed 05/15/19] Amlodipine Besylate [Norvasc] 10 mg PO DAILY 05/15/19 [History Confirmed ] Fluocinonide 0.05% CM (NF) [Lidex 0.05% CREAM (NF)] 1 applic TOPICAL DAILY 05/15 [History Confirmed 05/15/19] Gabapentin CAP(*) [Neurontin 100 mg CAP(*)] 300 mg PO BID 05/15/19 [History Confirmed 05/15/19] Levocetirizine Dihydrochloride [Levocetirizine Dihydrochl] 5 mg PO DAILY [History Confirmed 05/15/19] Multivitamins/Minerals TAB* [Theragran/minerals TAB*] 1 tab PO DAILY 05/15/19 [ History Confirmed 05/15/19] Abie-3 Fatty Acids (Nf) [Fish Oil (NF)] 1,000 mg PO DAILY 05/15/19 [History Confirmed 05/15/19] cefUROXime axetil [Cefuroxime] 500 mg PO BID 05/15/19 [History Confirmed ] rOPINIRole TAB* [Requip TAB*] 1 - 3 mg PO BEDTIME PRN 05/15/19 [History Confirmed 05/15/19] traZODone TAB* [Desyrel TAB*] 150 mg PO BEDTIME 05/15/19 [History Confirmed 04/26] PMH/Surg Hx/FS Hx/Imm Hx Previously Healthy: Yes Endocrine/Hematology History: Reports: Hx Thyroid Disease - Nodule, needs follow up, Hx Anemia Denies: Hx Bone Marrow Disease, Hx Diabetes, Hx Sickle Cell Disease Cardiovascular History: Reports: Hx Coronary Artery Disease, Hx Deep Vein Thrombosis, Hx Hypercholesterolemia, Hx Hypertension, Hx Syncope Denies: Hx Congestive Heart Failure, Hx Pacemaker/ICD Respiratory History: Reports: Hx Asthma - Seasonal, Hx Pneumonia, Hx Pulmonary Embolism, Hx Seasonal Allergies Denies: Hx Chronic Obstructive Pulmonary Disease (COPD) GI History: Reports: Hx Gastroesophageal Reflux Disease, Hx Gastrointestinal Bleed Denies: Hx Ulcer History: Denies: Hx Renal Disease Musculoskeletal History: Reports: Hx Arthritis, Hx Back Problems, Other Musculoskeletal History - hx right heel ulcers Sensory History: Reports: Hx Cataracts - bilat Denies: Hx Contacts or Glasses - not with pt, Hx Hearing Aid, Other Sensory Impairments Opthamlomology History: Reports: Hx Cataracts - bilat Denies: Hx Contacts or Glasses - not with pt, Other Sensory Impairments Neurological History: Reports: Hx Headaches, Hx Migraine - 3 in lifetime, Hx Transient Ischemic Attacks (TIA) Denies: Hx Dementia, Hx Developmental Delay, Hx Nerve Disease, Hx Seizures, Hx Spinal Cord Injury Comment Only: Other Neuro Impairments/Disorders - hx lumbar stenosis Psychiatric History: Reports: Hx Anxiety, Hx Depression, Hx Inpatient Treatment , Hx Substance Abuse, Other Psychiatric Issues/Disorders - Previous suicide attempt 2012 , delirium Denies: Hx Eating Disorder, Hx Panic Disorder, Hx Community Mental Health Tx , Hx of Violent Episodes Against Others - Surgical History Surgery Procedure, Year, and Place: Tubal ligation 1971, right knee surgery 1984, Removal of lesions on skin all benign, RIGHT LEG ARTERIAL STENT, exploratory surgery[place] [facility] [place] Anesthesia Reactions: No Infectious Disease History: No Infectious Disease History: Reports: Hx of Known/Suspected MRSA - in foot; per pt resolved Denies: Hx Hepatitis, Hx Human Immunodeficiency Virus (HIV), Traveled Outside the [place] in Last 30 Days - Family History Known Family History: Positive: Cardiac Disease - father, Hypertension - mother , Other - cancer- mother, sister - Social History Alcohol Use: Weekly Alcohol Amount: 1/2 drink a day Substance Use Type: Reports: None Hx Tobacco Use: Yes Smoking Status (MU): Unknown if Ever Smoked Type: Cigarettes Amount Used/How Often: smoked for 45 years, a carton a week Length of Time of Smoking/Using Tobacco: 60 years Have You Smoked in the Last Year: No Review of Systems Negative: Fever, Chills Negative: Chest Pain Negative: Abdominal Pain, Vomiting, Nausea Positive: Headache. Negative: Weakness All Other Systems Reviewed And Are Negative: Yes Physical Exam - Summary Physical Exam Summary: GENERAL: Patient is a well-developed and nourished elderly female who is lying comfortable in the stretcher. Patient is not in any acute respiratory distress. HEAD AND FACE: Normocephalic EYES: PERRLA, EOMI x 2. EARS: Hearing grossly intact. MOUTH: Oropharynx within normal limits. NECK: Supple, trachea is midline, no adenopathy, no JVD, no carotid bruit. CHEST: Symmetric, no tenderness at palpation LUNGS: Clear to auscultation bilaterally. No wheezing or crackles. CVS: Regular rate and rhythm, S1 and S2 present, no murmurs or gallops appreciated. ABDOMEN: Soft, non-tender. Bowel sounds are normal. No abnormal abdominal pulsations. EXTREMITIES: Full ROM in all major joints, no edema, no cyanosis or clubbing. NEURO: Alert and oriented x 3. No acute neurological deficits. Speech is normal and follows commands. SKIN: Dry and warm Triage Information Reviewed: Yes Vital Signs On Initial Exam: Initial Vitals Temp Pulse Resp BP Pulse Ox 97.7 F 74 18 177/111 99 05/15/19 14:32 05/15/19 14:32 05/15/19 14:32 05/15/19 14:32 05/15/19 14:32 Vital Signs Reviewed: Yes Diagnostics - Vital Signs Vital Signs Temp Pulse Resp BP Pulse Ox 05/15/19 15:34 127/110 05/15/19 15:20 18 170/115 05/15/19 15:03 20 195/110 05/15/19 15:00 17 05/15/19 14:33 76 23 177/111 96 05/15/19 14:32 97.7 F 74 26 177/111 99 - Laboratory Lab Results: Lab Results 05/15/19 05/15/19 05/15/19 Range/Units 15:10 15:15 15:15 WBC 8.2 (3.5-10.8) 10^3/uL RBC 4.85 (3.70-4.87) 10^6 /uL Hgb 13.3 (12.0-16.0) g/dL Hct 40 (35-47) % MCV 82 (80-97) fL MCH 28 (27-31) pg MCHC 34 (31-36) g/dL RDW 15 (10-15) % Plt Count 272 (150-450) 10^3/uL MPV 7.1 L (7.4-10.4) fL Neut % (Auto) 67.4 % Lymph % (Auto) 21.7 % Redwood % (Auto) 8.5 % Eos % (Auto) 1.1 % Baso % (Auto) 1.3 % Absolute Neuts (auto) 5.5 (1.5-7.7) 10^3/ul Absolute Lymphs (auto) 1.8 (1.0-4.8) 10^3/ul Absolute Monos (auto) 0.7 (0-0.8) 10^3/ul Absolute Eos (auto) 0.1 (0-0.6) 10^3/ul Absolute Basos (auto) 0.1 (0-0.2) 10^3/ul Absolute Nucleated RBC 0.0 10^3/ul Nucleated RBC % 0.0 INR (Anticoag Therapy) 1.03 (0.82-1.09) APTT 25.5 L (26.0-38.0) seconds Sodium 135 (135-145) mmol/L Potassium 3.8 (3.5-5.0) mmol/L Chloride 103 (101-111) mmol/L Carbon Dioxide 23 (22-32) mmol/L Anion Gap 9 (2-11) mmol/L BUN 21 (6-24) mg/dL Creatinine 1.02 H (0.51-0.95) mg/dL Est GFR ( Amer) 63.4 (>60) Est GFR (Non-Af Amer) 52.4 (>60) BUN/Creatinine Ratio 20.6 H (8-20) Glucose 97 (70-100) mg/dL Lactic Acid (0.5-2.0) mmol/L Calcium 9.3 (8.6-10.3) mg/dL Magnesium 2.1 (1.9-2.7) mg/dL Total Bilirubin 0.90 (0.2-1.0) mg/dL AST 34 (13-39) U/L ALT 13 (7-52) U/L Alkaline Phosphatase 79 (34-104) U/L Troponin I 0.01 (<0.04) ng/mL B-Natriuretic Peptide (<=100) pg/mL Total Protein 7.5 (6.4-8.9) g/dL Albumin 4.5 (3.2-5.2) g/dL Globulin 3.0 (2-4) g/dL Albumin/Globulin Ratio 1.5 (1-3) 05/15/19 05/15/19 Range/Units 15:15 15:15 WBC (3.5-10.8) 10^3/uL RBC (3.70-4.87) 10^6 /uL Hgb (12.0-16.0) g/dL Hct (35-47) % MCV (80-97) fL MCH (27-31) pg MCHC (31-36) g/dL RDW (10-15) % Plt Count (150-450) 10^3/uL MPV (7.4-10.4) fL Neut % (Auto) % Lymph % (Auto) % Redwood % (Auto) % Eos % (Auto) % Baso % (Auto) % Absolute Neuts (auto) (1.5-7.7) 10^3/ul Absolute Lymphs (auto) (1.0-4.8) 10^3/ul Absolute Monos (auto) (0-0.8) 10^3/ul Absolute Eos (auto) (0-0.6) 10^3/ul Absolute Basos (auto) (0-0.2) 10^3/ul Absolute Nucleated RBC 10^3/ul Nucleated RBC % INR (Anticoag Therapy) (0.82-1.09) APTT (26.0-38.0) seconds Sodium (135-145) mmol/L Potassium (3.5-5.0) mmol/L Chloride (101-111) mmol/L Carbon Dioxide (22-32) mmol/L Anion Gap (2-11) mmol/L BUN (6-24) mg/dL Creatinine (0.51-0.95) mg/dL Est GFR ( Amer) (>60) Est GFR (Non-Af Amer) (>60) BUN/Creatinine Ratio (8-20) Glucose (70-100) mg/dL Lactic Acid 0.9 (0.5-2.0) mmol/L Calcium (8.6-10.3) mg/dL Magnesium (1.9-2.7) mg/dL Total Bilirubin (0.2-1.0) mg/dL AST (13-39) U/L ALT (7-52) U/L Alkaline Phosphatase (34-104) U/L Troponin I (<0.04) ng/mL B-Natriuretic Peptide 69 (<=100) pg/mL Total Protein (6.4-8.9) g/dL Albumin (3.2-5.2) g/dL Globulin (2-4) g/dL Albumin/Globulin Ratio (1-3) Result Diagrams: 05/15/19 15:15 05/15/19 15:15 Lab Statement: Any lab studies that have been ordered have been reviewed, and results considered in the medical decision making process. - Radiology CXR Summary of Radiographic Findings: No acute pulmonary diseases. ED physician has reveiwed this report. - CT Cervical Spine CT CT Interpretation Completed By: Radiologist Summary of CT Findings: 1. No fracture or traumatic malalignment of the cervical spine. 2. General as osteopenia. 3. Varying degrees of multilevel spondylosis results in moderate bilateral neural. foraminal stenosis from C3- C4 through C6-C7. There is no severe osseous encroachment of the spinal canal. 4. 1.5 cm nodule in the left lobe of the thyroid. If clinically indicated, this could be. better characterized by ultrasound. ED Physician has reviewed this report. Brain CT CT Interpretation Completed By: Radiologist Summary of CT Findings: 1. Left frontal scalp hematoma with an intact subjacent calvarium. 2. Linear hyperattenuation along the left frontal convexity is favored to represent of. motion artifact; however, short-term follow-up imaging is recommended to exclude the possibility of a subdural hematoma. 3. The degree of ventriculomegaly with narrowing of the corpus callosal angle is. nonspecific but can be seen in the setting of normal pressure hydrocephalus. 4. Moderate chronic small vessel ischemic disease is likely. ED Physician has reviewed this report. - EKG 1459 Cardiac Rate: NL Summary of EKG Findings: NSR 71 BPM L axis deviation and Q waves seen in the anterior leads 1459. Interpreted by Dr. Forde at 1532 05/15/19. Re-Evaluation - Re-Evaluation First Eval Re-Evaluation Time: 18:25 Change: Unchanged Comment: Pt agreed to being admitted when shown the discharge paper work and having the risk factors explained to her again. Head Injury Course/Dx Course Of Treatment: This pt is a 79 Y/O F presenting to [facility] with a CC of falling. She states that she has had multiple falls today and visited Dr. Teresa smith for a check-up. She is currently on Plavix and rates the headache from her falls a 5/10 in severity. She states that she has been having multiple falls for the past few months. Upon her PE she had no acute abnormalities. Her CXR shows no acute pulmonary diseases. NSR 71 BPM L axis deviation and Q waves seen in the anterior leads 1459. Cervical Spine CT shows the followin. No fracture or traumatic malalignment of the cervical spine. 2. General as osteopenia. 3. Varying degrees of multilevel spondylosis results in moderate bilateral neural. foraminal stenosis from C3-C4 through C6-C7. There is no severe osseous encroachment of the spinal canal. 4. 1.5 cm nodule in the left lobe of the thyroid. If clinically indicated, this could be. better characterized by ultrasound. Her Brain CT shows the followin. Left frontal scalp hematoma with an intact subjacent calvarium. 2. Linear hyperattenuation along the left frontal convexity is favored to represent of. motion artifact; however, short-term follow-up imaging is recommended to exclude the possibility of a subdural hematoma. 3. The degree of ventriculomegaly with narrowing of the corpus callosal angle is. nonspecific but can be seen in the setting of normal pressure hydrocephalus. 4. Moderate chronic small vessel ischemic disease is likely. The pt has expressed her desire to leave the hospital and has been heavily suggested to stay. Pt will be discharged AMA due to her desire to leave the facility and be discharged home. She will be sent out with a Dx of head injury and NPH. She stated that she would stay if we could contact her daughter. She stated that she wanted to go home to take care of her dogs. She was awake, alert, and oriented x3 and was able to make informed decisions. She was informed of the risks of leaving AMA which include but are not limited to and dissability. Pt agreed to be admitted to [facility] [place] after being informed again of the risks of being sent home and neurology will be contacted to set up admission for further investigation. Dr. Dudley, Hospitalist, stated that she is going to make calls and see if the pt should be admitted to transferred to a higher level of care facility at 1839. At 1844 Dr. Dudley requested a repeat of the CT Brain scan at 2100 to rule out a subdural hematoma. If the CT scan is negative then the pt will be admitted for possible findings of NPH. If the scan is positive the pt will have to be transferred due to no section leader and machine setter neurosurgeon. Pt will be a sign out to Dr. Jiménez from Dr. Forde pending a brain CT at shift change 1900 05/15/19. - Diagnoses Provider Diagnoses: NPH (normal pressure hydrocephalus), Head injury - Physician Notifications Discussed Care Of Patient With: Samir Dudley Time Discussed With Above Provider: 18:37 Instructed by Provider To: Other - Dr. Dudley, Hospitalist, stated that she is going to make calls and see if the pt should be admitted to transferred to a higher level of care facility at 1839. At [address]44 Dr. Dudley requested a repeat of the CT Brain scan at 2100 to rule out a subdural hematoma. If the CT scan is negative then the pt will be admitted for possible findings of NPH. If the scan is positive the pt will have to be transferred due to no section leader and machine setter neurosurgeon. Discharge - Sign-Out/Discharge Documenting (check all that apply): Sign-Out Patient Signing out patient TO: Kaitlyn Jiménez Patient Received Moderate/Deep Sedation with Procedure: No - Discharge Plan Condition: Fair Disposition: AGAINST MEDICAL ADVICE Patient Education Materials: Head Injury (ED), Hydrocephalus (DC) Referrals: Buster Moore MD [Primary Care Provider] - 2 Days Terri Camacho MD [Medical Doctor] - 2 Days Additional Instructions: Please follow up with your primary care provider in 1-3 days. PLEASE RETURN TO THE EMERGENCY DEPARTMENT FOR ANY NEW OR WORSENING SYMPTOMS Follow up with Dr. Camacho, Neurology, in 1-3 days for further investigation due to your brain scans. - Billing Disposition and Condition Condition: FAIR Disposition: Against Medical Advice - Attestation Statements Document Initiated by Scribe: Yes Documenting Scribe: Doroteo Willis Provider For Whom [employer] is Documenting (Include Credential): Raúl Forde MD Scribe Attestation: I, Doroteo Willis, scribed for Raúl Forde MD on 05/16/19 at 1832. Scribe Documentation Reviewed: Yes Provider Attestation: The documentation as recorded by the aideibeDoroteo accurately reflects the service I personally performed and the decisions made by me, Raúl Forde MD Status of Scribe Document: Viewed
[2019-05-15 18:07] LABS: Urine Appearance Cloudy; Urine Bilirubin Negative (Negative); Urine Blood Negative (Negative); Urine Color Yellow; Urine Glucose Negative (Negative); Urine Ketones Negative (Negative); Urine Nitrite Negative (Negative); Urine Protein Negative (Negative); Urine Specific Gravity 1.019 (1.010-1.030); Urine Urobilinogen Negative (Negative)
--- NOTE | 2019-05-15 19:40 | ED ---
Progress - Progress Note Progress Note: This patient was signed out from Dr. Forde to Dr. Jiménez upon shift change at 19:00 05/15/[address] The patient has decided to sign out AMA. Re-Evaluation - Re-Evaluation First Eval Re-Evaluation Time: 19:38 Change: Unchanged Comment: Discussed risks of leaving AMA Course/Dx - Course Course Of Treatment: This patient was signed out from Dr. Forde to Dr. Ammy Quintana upon shift change at 19:00 05/15/[address] The patient has decided to sign out AMA. - Diagnoses Provider Diagnoses: NPH (normal pressure hydrocephalus), Head injury - Provider Notifications Time Discussed With Above Provider: 18:37 Instructed by Provider To: Other - Dr. Dudley, Hospitalist, stated that she is going to make calls and see if the pt should be admitted to transferred to a higher level of care facility at 1839. At [address]44 Dr. Dudley requested a repeat of the CT Brain scan at 2100 to rule out a subdural hematoma. If the CT scan is negative then the pt will be admitted for possible findings of NPH. If the scan is positive the pt will have to be transferred due to no recreational therapy technician neurosurgeon. Discharge ED - Sign-Out/Discharge Documenting (check all that apply): Patient Departure - AMA Patient Received Moderate/Deep Sedation with Procedure: No - Discharge Plan Condition: Fair Disposition: AGAINST MEDICAL ADVICE Patient Education Materials: Head Injury (ED), Hydrocephalus (DC) Referrals: Terri Camacho MD [Medical Doctor] - 2 Days Buster Moore MD [Primary Care Provider] - 2 Days Additional Instructions: Please follow up with your primary care provider in 1-3 days. PLEASE RETURN TO THE EMERGENCY DEPARTMENT FOR ANY NEW OR WORSENING SYMPTOMS Follow up with Dr. Camacho, Neurology, in 1-3 days for further investigation due to your brain scans. - Billing Disposition and Condition Condition: FAIR Disposition: Against Medical Advice - Attestation Statements Document Initiated by Scribe: Yes Documenting Scribe: Raffi Salas Provider For Whom Scribe is Documenting (Include Credential): Kaitlyn Quintana MD Scribe Attestation: IRaffi, scribed for Kaitlyn Jiménez MD on 09/25/19 at 1111. Scribe Documentation Reviewed: Yes Provider Attestation: The documentation as recorded by the scribe, Raffi Salas accurately reflects the service I personally performed and the decisions made by me, Kaitlyn Jiménez MD Status of Scribe Document: Viewed
[2019-05-15 19:47] VITALS: BP 0/0
== END 2019-05-15 19:45 | disposition left against medical advice (07) ==
LOC: ED 14:23
DX: G91.2 (Idiopathic) normal pressure hydrocephalus (principal); S09.90XA Unspecified injury of head, initial encounter; S00.03XA Contusion of scalp, initial encounter; W18.30XA Fall on same level, unspecified, initial encounter; Z91.81 History of falling; Y92.9 Unspecified place or not applicable; M85.88 Other specified disorders of bone density and structure, other site; M47.812 Spondylosis without myelopathy or radiculopathy, cervical region; E04.1 Nontoxic single thyroid nodule; I25.10 Atherosclerotic heart disease of native coronary artery without angina pectoris; I10 Essential (primary) hypertension; Z86.718 Personal history of other venous thrombosis and embolism; Z86.711 Personal history of pulmonary embolism; Z79.01 Long term (current) use of anticoagulants; F32.9 Major depressive disorder, single episode, unspecified; Z88.1 Allergy status to other antibiotic agents; Z88.3 Allergy status to other anti-infective agents; Z88.5 Allergy status to narcotic agent; Z88.0 Allergy status to penicillin; Z88.8 Allergy status to other drugs, medicaments and biological substances; Z91.048 Other nonmedicinal substance allergy status; Z87.891 Personal history of nicotine dependence
CPT/HCPCS: 36415; 70450; 71045; 72125; 80053; 81003; 83605; 83735; 83880; 84484; 85025; 85610; 85730; 93005; 99283

== ENCOUNTER 2019-06-23 09:30 | Inpatient (IN) | payer MEDICARE ==
[2019-06-23] MEDS ORDERED: NS 0.9% 1000 ML** 1,000 ML IV ONE (09:44)
[2019-06-23 10:11] LABS: ABS Basophils 0.1 10^3/ul (0-0.2); ABS Eosinophils 0.1 10^3/ul (0-0.6); ABS Lymphocytes 1.3 10^3/ul (1.0-4.8); ABS Monocytes 0.6 10^3/ul (0-0.8); ABS Neutrophils 6.9 10^3/ul (1.5-7.7); Eosinophil % 0.9 %; Hematocrit 45 % (35-47); Hemoglobin 14.4 g/dL (12.0-16.0); Lymphocyte % 14.5 %; Mean Corpuscular HGB Conc 32 g/dL (31-36); Mean Corpuscular Hemoglobin 27 pg (27-31); Mean Corpuscular Volume 82 fL (80-97); Mean Platelet Volume 7.1 fL (7.4-10.4); Nucleated Red Blood Cells % 0.1; Platelet Count 286 10^3/uL (150-450); Red Blood Count 5.44 10^6 /uL (3.70-4.87); Red Cell Distribution Width 15 % (10-15); White Blood Count 9.1 10^3/uL (3.5-10.8)
[2019-06-23 10:20] LABS: INR 1.03 (0.82-1.09)
[2019-06-23 10:25] LABS: Albumin 4.4 g/dL (3.2-5.2); Anion Gap 8 mmol/L (2-11); CO2 Carbon Dioxide 25 mmol/L (22-32); Calcium 9.6 mg/dL (8.6-10.3); Chloride 104 mmol/L (101-111); Magnesium 2.1 mg/dL (1.9-2.7); Sodium 137 mmol/L (135-145)
[2019-06-23 10:31] LABS: ALT 13 U/L (7-52); AST 31 U/L (13-39); Albumin/Globulin Ratio 1.6 (1-3); Alkaline Phosphatase 101 U/L (34-104); BUN/Creatinine Ratio 15.9 (8-20); Blood Urea Nitrogen 17 mg/dL (6-24); Creatine Kinase 568 U/L (10-223); EGFR Non-African American 49.6 (>60); Globulin 2.8 g/dL (2-4); Glucose 115 mg/dL (70-100); Total Protein 7.2 g/dL (6.4-8.9)
[2019-06-23 10:49] LABS: Troponin I 0.01 ng/mL (<0.04)
[2019-06-23 10:55] LABS: Acetaminophen < 15 mcg/mL; Alcohol < 10 mg/dL (<10); Salicylate < 2.50 mg/dL (<30)
[2019-06-23] MEDS ORDERED: Lorazepam PYXIS KEY PRN ×3 (11:27→15:15)
[2019-06-23] MEDS ORDERED: LORazepam INJ* 2 MG/ML 1 ML VIAL IV PUSH ONE ×4 (11:27→15:15)
[2019-06-23] MEDS ORDERED: Thiamine INJ* 100 MG, Folic Acid IV* 1 MG, Multiple Vitamin IV ADULT* 10 ML in NS 0.9% ... IV ONE (11:27)
[2019-06-23] MEDS ORDERED: Lorazepam PYXIS KEY ONE (11:32)
[2019-06-23] MEDS ORDERED: hydrALAZINE IV* 20 MG/ML VIAL IV SLOW PU ONE ×2 (12:13→12:18)
[2019-06-23] MEDS ORDERED: Labetalol IV* 5 MG/ML 20 ML VIAL IV PUSH ONE ×2 (12:17→15:21)
[2019-06-23 12:21] LABS: Urine Appearance Clear; Urine Bilirubin Negative (Negative); Urine Blood Negative (Negative); Urine Color Yellow; Urine Glucose Negative (Negative); Urine Ketones Negative (Negative); Urine Nitrite Negative (Negative); Urine Protein Negative (Negative); Urine Specific Gravity 1.013 (1.010-1.030); Urine Urobilinogen Negative (Negative)
[2019-06-23 12:39] LABS: Urine Benzodiazepine Screen None Detected (None Detect); Urine Opiates Screen None Detected (None Detect)
--- NOTE | 2019-06-23 13:08 | ED ---
Altered Mental Status - HPI Summary HPI Summary: This patient is a 79-year-old female arriving by EMS after calling EMS to stay she has had multiple falls over the past 2-3 days and does not understand why. She is also endorsing hitting her head and complaining of neck pain due to the falls. On arrival into the ED, the patient is very fidgety, inability to sit still and confused. She is unsure of the date, month, year, location or recent history. she states she's been falling more frequently and does not understand why. She continues to not be able to give a full history. - History Of Current Complaint Chief Complaint: EDFall Stated Complaint: DIZZINESS AND FALLS PER EMS Time Seen by Provider: 06/23/19 09:38 Hx From Patient Unobtainable Due To: Altered Mental Status Onset/Duration: Unknown Timing: Constant Severity Initially: Severe Severity Currently: Severe Character: Confusion, Agitation Aggravating Factor(s): Nothing Alleviating Factor(s): Nothing - Risk Factors Cardiac Risk Factors: Hypertension CVA Risk Factor: Hypertension, Alcohol Abuse - Allergies/Home Medications Allergies/Adverse Reactions: Allergies Allergy/AdvReac Type Severity Reaction Status Date / Time Adhesive Tape Allergy Severe Blisters Verified 04/07/18 00:29 bacitracin Allergy Blisters Verified 04/07/18 00:29 [From Neosporin ([id number])] cefazolin Allergy Unknown Verified 04/07/18 00:29 Reaction Details ciprofloxacin Allergy Unknown Verified 04/07/18 00:29 Reaction Details diclofenac [From Arthrotec] Allergy GI Upset Verified 04/07/18 00:29 erythromycin base Allergy Unknown Verified 04/07/18 00:29 Reaction Details fentanyl Allergy Unknown Verified 04/07/18 00:29 Reaction Details hydrocodone Allergy Unknown Verified 04/07/18 00:29 Reaction Details metoprolol Allergy Unknown Verified 04/07/18 18:25 Reaction Details misoprostol [From Arthrotec] Allergy GI Upset Verified 04/07/18 00:29 mupirocin [From Bactroban] Allergy Blisters Verified 04/07/18 18:20 neomycin Allergy Blisters Verified 04/07/18 00:29 [From Neosporin ([id number])] Penicillins Allergy Unknown Verified 04/07/18 00:29 Reaction Details polymyxin B Allergy Blisters Verified 04/07/18 00:29 [From Neosporin ([id number])] Hair Dye Allergy Intermediate Blisters Uncoded 04/07/18 00:29 Seasonal/Environmental Allergy Intermediate Coughing Uncoded 04/07/18 00:29 PMH/Surg Hx/FS Hx/Imm Hx Previously Healthy: Yes Endocrine/Hematology History: Reports: Hx Thyroid Disease - Nodule, needs follow up, Hx Anemia Denies: Hx Bone Marrow Disease, Hx Diabetes, Hx Sickle Cell Disease Cardiovascular History: Reports: Hx Coronary Artery Disease, Hx Deep Vein Thrombosis, Hx Hypercholesterolemia, Hx Hypertension, Hx Syncope Denies: Hx Congestive Heart Failure, Hx Pacemaker/ICD Respiratory History: Reports: Hx Asthma - Seasonal, Hx Pneumonia, Hx Pulmonary Embolism, Hx Seasonal Allergies Denies: Hx Chronic Obstructive Pulmonary Disease (COPD) GI History: Reports: Hx Gastroesophageal Reflux Disease, Hx Gastrointestinal Bleed Denies: Hx Ulcer History: Denies: Hx Renal Disease Musculoskeletal History: Reports: Hx Arthritis, Hx Back Problems, Other Musculoskeletal History - hx right heel ulcers Sensory History: Reports: Hx Cataracts - bilat Denies: Hx Contacts or Glasses - not with pt, Hx Hearing Aid, Other Sensory Impairments Opthamlomology History: Reports: Hx Cataracts - bilat Denies: Hx Contacts or Glasses - not with pt, Other Sensory Impairments Neurological History: Reports: Hx Headaches, Hx Migraine - 3 in lifetime, Hx Transient Ischemic Attacks (TIA) Denies: Hx Dementia, Hx Developmental Delay, Hx Nerve Disease, Hx Seizures, Hx Spinal Cord Injury Comment Only: Other Neuro Impairments/Disorders - hx lumbar stenosis Psychiatric History: Reports: Hx Anxiety, Hx Depression, Hx Inpatient Treatment , Hx Substance Abuse, Other Psychiatric Issues/Disorders - Previous suicide attempt 2012 , delirium Denies: Hx Eating Disorder, Hx Panic Disorder, Hx Community Mental Health Tx , Hx of Violent Episodes Against Others - Surgical History Surgery Procedure, Year, and Place: Tubal ligation 1971, right knee surgery 1984, Removal of lesions on skin all benign, RIGHT LEG ARTERIAL STENT, exploratory surgery, cardiac cath at [facility] [place] 04/07/14 Hx Anesthesia Reactions: No - Immunization History Hx Pertussis Vaccination: No Immunizations Up to Date: Yes Infectious Disease History: No Infectious Disease History: Reports: Hx of Known/Suspected MRSA - in foot; per pt resolved Denies: Hx Hepatitis, Hx Human Immunodeficiency Virus (HIV), Traveled Outside the [place] in Last 30 Days - Family History Known Family History: Positive: Cardiac Disease - father, Hypertension - mother , Other - cancer- mother, sister - Social History Occupation: Unemployed Lives: Alone Alcohol Use: Weekly Alcohol Amount: 1/2 drink a day Hx Substance Use: No Substance Use Type: Reports: None Hx Tobacco Use: Yes Smoking Status (MU): Unknown if Ever Smoked Type: Cigarettes Amount Used/How Often: smoked for 45 years, a carton a week Length of Time of Smoking/Using Tobacco: 60 years Have You Smoked in the Last Year: No Review of Systems Negative: Fever, Chills, Fatigue, Skin Diaphoresis Negative: Palpitations, Chest Pain Negative: Shortness Of Breath, Cough Genitourinary: Negative Positive: no symptoms reported, see HPI Negative: Arthralgia Positive: Headache. Negative: Weakness, Paresthesia, Numbness Positive: Other - AMS All Other Systems Reviewed And Are Negative: Yes Physical Exam Triage Information Reviewed: Yes Vital Signs On Initial Exam: Initial Vitals Temp Pulse Resp BP Pulse Ox 99.4 F 86 20 188/124 99 06/23/19 09:34 06/23/19 09:34 06/23/19 09:34 06/23/19 09:34 06/23/19 09:34 Vital Signs Reviewed: Yes Completion Of Physical Exam Limited Due To: Altered Mental Status Appearance: Positive: Ill-Appearing Skin: Positive: Warm, Skin Color Reflects Adequate Perfusion Head/Face: Positive: Normal Head/Face Inspection Eyes: Positive: EOMI, Conjunctiva Clear Neck: Positive: Supple, No Lymphadenopathy Respiratory/Lung Sounds: Positive: Clear to Auscultation, Breath Sounds Present Cardiovascular: Positive: RRR, Pulses are Symmetrical in both Upper and Lower Extremities Musculoskeletal: Positive: Other - unable to assess - no obvious focal MSK abnromalities Neurological: Positive: Disoriented, Heel to Toe - unable to assess, Finger to Nose, Unable to Assess Gait, Other - confused Psychiatric: Positive: Affect/Mood Appropriate Diagnostics - Vital Signs Vital Signs Temp Pulse Resp BP Pulse Ox 06/23/19 12:38 20 06/23/19 12:11 195/109 06/23/19 12:09 79 204/110 90 06/23/19 12:08 79 94 06/23/19 11:38 20 06/23/19 11:36 195/119 06/23/19 11:17 76 205/116 06/23/19 11:08 76 96 06/23/19 11:07 215/139 06/23/19 10:58 183/138 06/23/19 10:01 82 91 06/23/19 09:41 86 98 06/23/19 09:40 188/124 06/23/19 09:34 99.4 F 86 20 188/124 99 - Laboratory Lab Results: Lab Results 06/23/19 06/23/19 06/23/19 Range/Units 10:03 10:03 10:03 WBC 9.1 (3.5-10.8) 10^3/uL RBC 5.44 H (3.70-4.87) 10^6 /uL Hgb 14.4 (12.0-16.0) g/dL Hct 45 (35-47) % MCV 82 (80-97) fL MCH 27 (27-31) pg MCHC 32 (31-36) g/dL RDW 15 (10-15) % Plt Count 286 (150-450) 10^3/uL MPV 7.1 L (7.4-10.4) fL Neut % (Auto) 76.1 % Lymph % (Auto) 14.5 % [place] % (Auto) 7.1 % Eos % (Auto) 0.9 % Baso % (Auto) 1.4 % Absolute Neuts (auto) 6.9 (1.5-7.7) 10^3/ul Absolute Lymphs (auto) 1.3 (1.0-4.8) 10^3/ul Absolute Monos (auto) 0.6 (0-0.8) 10^3/ul Absolute Eos (auto) 0.1 (0-0.6) 10^3/ul Absolute Basos (auto) 0.1 (0-0.2) 10^3/ul Absolute Nucleated RBC 0.0 10^3/ul Nucleated RBC % 0.1 INR (Anticoag Therapy) 1.03 (0.82-1.09) Sodium 137 (135-145) mmol/L Potassium 4.0 (3.5-5.0) mmol/L Chloride 104 (101-111) mmol/L Carbon Dioxide 25 (22-32) mmol/L Anion Gap 8 (2-11) mmol/L BUN 17 (6-24) mg/dL Creatinine 1.07 H (0.51-0.95) mg/dL Est GFR ( Amer) 60.0 (>60) Est GFR (Non-Af Amer) 49.6 (>60) BUN/Creatinine Ratio 15.9 (8-20) Glucose 115 H (70-100) mg/dL Lactic Acid (0.5-2.0) mmol/L Calcium 9.6 (8.6-10.3) mg/dL Magnesium 2.1 (1.9-2.7) mg/dL Total Bilirubin 1.20 H (0.2-1.0) mg/dL AST 31 (13-39) U/L ALT 13 (7-52) U/L Alkaline Phosphatase 101 (34-104) U/L Ammonia (16-53) mcmol/L Total Creatine Kinase 568 H (10-223) U/L Troponin I 0.01 (<0.04) ng/mL Total Protein 7.2 (6.4-8.9) g/dL Albumin 4.4 (3.2-5.2) g/dL Globulin 2.8 (2-4) g/dL Albumin/Globulin Ratio 1.6 (1-3) Urine Color Urine Appearance Urine pH (5-9) Ur Specific [place] (1.010-1.030) Urine Protein (Negative) Urine Ketones (Negative) Urine Blood (Negative) Urine Nitrate (Negative) Urine Bilirubin (Negative) Urine Urobilinogen (Negative) Ur Leukocyte Esterase (Negative) Urine Glucose (Negative) Salicylates < 2.50 (<30) mg/dL Urine Opiates Screen (None Detect) Acetaminophen < 15 mcg/mL Ur Barbiturates Screen (None Detect) Ur Phencyclidine Scrn (None Detect) Ur Amphetamines Screen (None Detect) U Benzodiazepines Scrn (None Detect) Urine Cocaine Screen (None Detect) U Cannabinoids Screen (None Detect) Serum Alcohol < 10 (<10) mg/dL 06/23/19 06/23/19 06/23/19 Range/Units 10:03 10:03 11:57 WBC (3.5-10.8) 10^3/uL RBC (3.70-4.87) 10^6 /uL Hgb (12.0-16.0) g/dL Hct (35-47) % MCV (80-97) fL MCH (27-31) pg MCHC (31-36) g/dL RDW (10-15) % Plt Count (150-450) 10^3/uL MPV (7.4-10.4) fL Neut % (Auto) % Lymph % (Auto) % [place] % (Auto) % Eos % (Auto) % Baso % (Auto) % Absolute Neuts (auto) (1.5-7.7) 10^3/ul Absolute Lymphs (auto) (1.0-4.8) 10^3/ul Absolute Monos (auto) (0-0.8) 10^3/ul Absolute Eos (auto) (0-0.6) 10^3/ul Absolute Basos (auto) (0-0.2) 10^3/ul Absolute Nucleated RBC 10^3/ul Nucleated RBC % INR (Anticoag Therapy) (0.82-1.09) Sodium (135-145) mmol/L Potassium (3.5-5.0) mmol/L Chloride (101-111) mmol/L Carbon Dioxide (22-32) mmol/L Anion Gap (2-11) mmol/L BUN (6-24) mg/dL Creatinine (0.51-0.95) mg/dL Est GFR ( Amer) (>60) Est GFR (Non-Af Amer) (>60) BUN/Creatinine Ratio (8-20) Glucose (70-100) mg/dL Lactic Acid 1.3 (0.5-2.0) mmol/L Calcium (8.6-10.3) mg/dL Magnesium (1.9-2.7) mg/dL Total Bilirubin (0.2-1.0) mg/dL AST (13-39) U/L ALT (7-52) U/L Alkaline Phosphatase (34-104) U/L Ammonia 38 (16-53) mcmol/L Total Creatine Kinase (10-223) U/L Troponin I (<0.04) ng/mL Total Protein (6.4-8.9) g/dL Albumin (3.2-5.2) g/dL Globulin (2-4) g/dL Albumin/Globulin Ratio (1-3) Urine Color Yellow Urine Appearance Clear Urine pH 6.0 (5-9) Ur Specific [place] 1.013 (1.010-1.030) Urine Protein Negative (Negative) Urine Ketones Negative (Negative) Urine Blood Negative (Negative) Urine Nitrate Negative (Negative) Urine Bilirubin Negative (Negative) Urine Urobilinogen Negative (Negative) Ur Leukocyte Esterase Negative (Negative) Urine Glucose Negative (Negative) Salicylates (<30) mg/dL Urine Opiates Screen (None Detect) Acetaminophen mcg/mL Ur Barbiturates Screen (None Detect) Ur Phencyclidine Scrn (None Detect) Ur Amphetamines Screen (None Detect) U Benzodiazepines Scrn (None Detect) Urine Cocaine Screen (None Detect) U Cannabinoids Screen (None Detect) Serum Alcohol (<10) mg/dL 06/23/19 Range/Units 11:57 WBC (3.5-10.8) 10^3/uL RBC (3.70-4.87) 10^6 /uL Hgb (12.0-16.0) g/dL Hct (35-47) % MCV (80-97) fL MCH (27-31) pg MCHC (31-36) g/dL RDW (10-15) % Plt Count (150-450) 10^3/uL MPV (7.4-10.4) fL Neut % (Auto) % Lymph % (Auto) % [place] % (Auto) % Eos % (Auto) % Baso % (Auto) % Absolute Neuts (auto) (1.5-7.7) 10^3/ul Absolute Lymphs (auto) (1.0-4.8) 10^3/ul Absolute Monos (auto) (0-0.8) 10^3/ul Absolute Eos (auto) (0-0.6) 10^3/ul Absolute Basos (auto) (0-0.2) 10^3/ul Absolute Nucleated RBC 10^3/ul Nucleated RBC % INR (Anticoag Therapy) (0.82-1.09) Sodium (135-145) mmol/L Potassium (3.5-5.0) mmol/L Chloride (101-111) mmol/L Carbon Dioxide (22-32) mmol/L Anion Gap (2-11) mmol/L BUN (6-24) mg/dL Creatinine (0.51-0.95) mg/dL Est GFR ( Amer) (>60) Est GFR (Non-Af Amer) (>60) BUN/Creatinine Ratio (8-20) Glucose (70-100) mg/dL Lactic Acid (0.5-2.0) mmol/L Calcium (8.6-10.3) mg/dL Magnesium (1.9-2.7) mg/dL Total Bilirubin (0.2-1.0) mg/dL AST (13-39) U/L ALT (7-52) U/L Alkaline Phosphatase (34-104) U/L Ammonia (16-53) mcmol/L Total Creatine Kinase (10-223) U/L Troponin I (<0.04) ng/mL Total Protein (6.4-8.9) g/dL Albumin (3.2-5.2) g/dL Globulin (2-4) g/dL Albumin/Globulin Ratio (1-3) Urine Color Urine Appearance Urine pH (5-9) Ur Specific [place] (1.010-1.030) Urine Protein (Negative) Urine Ketones (Negative) Urine Blood (Negative) Urine Nitrate (Negative) Urine Bilirubin (Negative) Urine Urobilinogen (Negative) Ur Leukocyte Esterase (Negative) Urine Glucose (Negative) Salicylates (<30) mg/dL Urine Opiates Screen None detected (None Detect) Acetaminophen mcg/mL Ur Barbiturates Screen None detected (None Detect) Ur Phencyclidine Scrn None detected (None Detect) Ur Amphetamines Screen None detected (None Detect) U Benzodiazepines Scrn None detected (None Detect) Urine Cocaine Screen None detected (None Detect) U Cannabinoids Screen None detected (None Detect) Serum Alcohol (<10) mg/dL Result Diagrams: 06/23/19 10:03 06/23/19 10:03 Lab Statement: Any lab studies that have been ordered have been reviewed, and results considered in the medical decision making process. Altered Mental Statu Course/Dx - Course Course Of Treatment: This patient is a 79-year-old female arriving by EMS after calling EMS to stay she has had multiple falls over the past 2-3 days and does not understand why. She is also endorsing hitting her head and complaining of neck pain due to the falls. On arrival into the ED, the patient is very fidgety , inability to sit still and confused. She is unsure of the date, month, year, location or recent history. She states she's been falling more frequently and does not understand why. She continues to not be able to give a full history. At that time CT brain and cervical spine as well as labs were obtained. Drug screen obtained. On reexamination, patient continues to have symptoms of akathisia and unable to follow commands. Continues to be confused and not alert or oriented to place or time. At this time, she states she drinks heavily every day. Alcohol as well as vitamin B1, B6, B12, folate are added to her labs. For concern of alcohol WD, she was given 1mg Ativan followed by another 1mg Ativan 1 hour later d/t little effect. Banana bag given and admitted to hospitalist service for further workup. Labs are unremarkable except for a CK of 568. Toxicology negative. Urine screen negative. Serum alcohol negative. Pt lives alone, unable to contact family and unsure if this is her baseline. Concern for Wernickes encephalopathy versus hypertensive encephalopathy vs other etiology for AMS. She is noted to be hypertensive of 208/115. She was subsequently given labetalol 20 mg IV push. Re-examination: pt still has akathisia-like symptoms and unable to stay in bed. Admitted for AMS. Discussed case with Dr. Fish. - Diagnoses Differential Diagnosis/HQI/PQRI: Medication Reaction, Other - Hypertensive encephalopathy, Wernicke's encephalopathy, alcohol abuse, thymine deficiency Provider Diagnoses: Altered mental status - Provider Notifications Discussed Care Of Patient With: Leonard Valdovinos Instructed by Provider To: Admit As Inpatient Discharge ED - Sign-Out/Discharge Documenting (check all that apply): Patient Departure Patient Received Moderate/Deep Sedation with Procedure: No - Discharge Plan Condition: Fair Disposition: ADMITTED TO [facility] - Billing Disposition and Condition Condition: FAIR Disposition: Admitted to [facility] - Attestation Statements Provider Attestation: I have seen the patient with the JANIS and agree with the plan and documentation below.
[2019-06-23 13:40] LABS: Folate 9.36 ng/mL (>3.99)
[2019-06-23] MEDS ORDERED: amLODIPine TAB* 5 MG PO ONE (14:11)
[2019-06-23] MEDS ORDERED: Ondansetron INJ* 2 MG/ML VIAL IV PRN (15:31)
[2019-06-23] MEDS ORDERED: LORazepam TAB(*) 1 MG PO SCH (16:00)
[2019-06-23] MEDS ORDERED: Iodixanol* (CONTRAST) 320 MG/ML 100 ML SDV IV ONE (17:21)
--- NOTE | 2019-06-23 17:43 | CONS ---
CONSULTATION REPORT: DATE OF CONSULT: 06/23/19 PATIENT OF: Toshia Burris, LEESA and Dr. Moore. HISTORY OF PRESENT ILLNESS: This is a 79-year-old woman who presents with confusion and left facial weakness. She has had multiple falls over the past 2 to 3 days' time and has struck her head and has some neck pain. She is confused and disoriented, but has presented and been admitted for similar symptoms over the past couple of years. She was evaluated by Dr. Patel from Neurology in March 2018 with confusion, disorientation, and falls and had a CT scan that showed diffuse atrophy. She had some elevated blood pressure as well and was felt to have an acute delirium. CT scan was unchanged from prior scan standpoint. There is no one who has been able to comment on what happened, she is a poor historian, states a significant history of chronic alcohol abuse, suicidal ideations, hypertension, GERD, depression, history of TIAs, left-sided neglect, history of PE and DVT remotely, cataract surgery, history of falls dating back as far as 2007 with wrist fracture, has no ganglion cyst repair bilaterally, history of intestinal hemorrhage, history of peripheral vascular disease with stent placed to lower extremity, lumbar stenosis. ALLERGIES: Include ADHESIVE TAPE, CEPHALEXIN, CIPRO, DICLOFENAC, FENTANYL, HYDROCODONE, MISOPROSTOL, E-MYCIN, PENICILLINS, POLYMYXIN, HAIR DYE, SEASONAL ALLERGIES and TOPROL. FAMILY HISTORY: Mother secondary to gastric cancer. Father from myocardial infarction. She is a former smoker and history of alcohol abuse. We are unable to obtain a review of systems. PHYSICAL EXAM: On exam, blood pressure 150/84, pulse 20, respirations 19. Her blood pressure has been as high as 216/106 and has a diastolic of 111, temperature 99.4. She was alert and spoke in brief sentences with clear speech. She was confused, but there was no apparent word finding beyond what you would expect with her confusion, she did not know where she was or her age. She could follow simple 1 and 2 step commands. Cranial nerves II through XII were intact. There was no clear nystagmus, but she was not cooperative with eye exam. Red reflex was present bilaterally. She had a mild left facial decreased nasolabial fold compared to the right and this was new since Dr. Patel 's visit in March 2018, it is unclear whether it is new or not. She was not directly cooperative with motor exam, but she moves all extremities. 4+/5 strength resisted. Movement in all extremities and could actively move and did move all extremities with purpose. Reflexes were trace in the ankles and knees with 1+ in the arms. She had high arch feet with hammertoes. She was not cooperative with sensory exam. Chest: Clear. Cardiovascular: Regular rate and rhythm. Abdomen: Soft with positive bowel sounds. I reviewed her CT scan and compared to prior CT scans and a prior MRI scan from a few years ago, her CT scan shows diffuse atrophy, white matter hypodensities. I could see the cerebellar folia and her ventricles were big and consistent with prior CT scans and MRI scans. Her prior MRI scan showed confluent white matter disease, atrophy and area of encephalomalacia predominantly in the right occipital lobe. DIAGNOSTIC STUDIES/LAB DATA: Her labs included normal CBC. INR PTT 25. Chemistries were normal. Creatinine was 1.07, glucose 115, total bili 1.2, normal ammonia 38, CPK 568, C-reactive protein 1.38, LDL is 98, B12 was 596, folate 9.36, TSH 1.38. UA was negative, 1+ white cells. Leuko esterase was negative. Toxicology was negative for opiates as well as was negative EtOH. Linda has evidence of diffuse white matter disease, atrophy and areas of encephalomalacia perhaps secondary to past strokes. On her CT scans and MRI scans there are significant findings and could predispose her to both balance problems as well as a chronic encephalopathy. It is unclear from her history how much it is new problems versus old and some of this may be well longstanding. It is possible she fell and struck her head and that could have caused worsening encephalopathy, it is also possible that this is acute alcohol related or even from her hypertension, with the hypertensive encephalopathy. She does have new, as best we can tell, focal findings of left facial droop and will be checking a CTA to make sure that there is no large vessel occlusion, although I cannot get a full complete neurological exam. In terms of strength there appears to be no other focal deficit, but is hard to know whether there is left-sided neglect or even a mild left hemiparesis. She also has on exam evidence of a significant neuropathy with high arched feet and hammertoes and trace reflexes in knees and ankles. This is likely from her chronic alcoholism she is getting a banana bag replacement. If her confusion persists until tomorrow, it would be reasonable to check an EEG to screen for other metabolic causes, but her ammonia is normal. I do not think she needs to get lactulose right now. Dr. Camacho will be picking up her care tomorrow morning. Thank you for sharing her case. [id number]/[facility] #: [id number] HEATH
[2019-06-23] MEDS: Oxybutynin XL TAB* 5 MG PO SCH ×2 (19:36→19:48)
[2019-06-23] MEDS: Enoxaparin(*) 30 MG/0.3 ML SYR SUBCUT SCH (19:49)
[2019-06-23] MEDS: NS 0.9% 1000 ML** 1,000 ML IV SCH (20:01)
--- NOTE | 2019-06-23 22:38 | HP ---
ADMISSION HISTORY AND PHYSICAL: DATE OF ADMISSION: 06/23/19 PRIMARY CARE PROVIDER: Dr. Moore. PROVIDER: Katrin Burris NP ATTENDING PHYSICIAN: Dr. Valdovinos.* (DICTATED BY KATRIN BURRIS NP) OTHER PROVIDER: Dr. Castillo. CHIEF COMPLAINT: Dizziness and falls. HISTORY OF PRESENT ILLNESS: This is a 79-year-old female with a past medical history significant for depression, previous multiple psych admissions, EtOH abuse, hypertension, and hyperlipidemia, who presented to the ED today via EMS for dizziness and falls stating that she fell twice today. The patient is unable to follow commands, will only answer some questions, unable to give a clear history of the present problems. I am unable to reach the daughter by phone. CT of head was negative for acute findings. Chest x-ray is suggestive of obstructive lung disease. Hip and pelvis x-ray due to pain in right hip and buttock with no evidence of fractures. EKG showed sinus rhythm, significantly hypertensive in the ED with blood pressures in 200s/100s, initially reported headache with no vision changes, though throughout the evaluations answers were not consistent when ask for clarification of symptoms. Received a total of 40 mg of IV labetalol and 20 mg of IV hydralazine, 5 mg of amlodipine, blood pressure eventually responded, came down to 170s/80s. Hospitalists were consulted to evaluate the patient for admission. Dr. Castillo consulted for Neurology to assist in determining the source of altered mental status, no apparent infectious source. CT of chest was negative other than elevated lung volumes suggestive of potential obstructive lung disease. Hip and pelvis x-ray was done and negative for fractures. During the examination, noted the left- sided facial droop. Head CTA performed on the consult of Dr. Castillo and that showed 50% occlusion of left carotid bulb and ostium of the left internal carotid artery and 90% stenosis at the junction of the proximal and mid segments of the left internal carotid artery as well as 50% stenosis of the proximal right internal carotid artery which is a change from previous CTA in 2014. PAST MEDICAL HISTORY: Hypertension, hyperlipidemia, DVT, PE, asthma, lumbar stenosis, suicidal ideation, bilateral leg stenting, EtOH abuse, previous psych admissions, urinary incontinence, MRSA in her foot, TIA, and GERD. PAST SURGICAL HISTORY: Includes right knee surgery and cardiac cath 2013. HOME MEDICATIONS: Include: 1. Losartan 100 mg p.o. daily. 2. Plavix 75 mg p.o. q.a.m. 3. Trazodone 150 mg p.o. at bedtime. 4. Ropinirole 1 to 3 mg p.o. at bedtime p.r.n. 5. Oxybutynin 15 mg p.o. q.p.m. FAMILY HISTORY: Daughter has bipolar and EtOH abuse. Brother has PTSD. SOCIAL HISTORY: Quit smoking in 1998. She states she only drinks half an alcoholic drink a day. She is unemployed. She lives alone. REVIEW OF SYSTEMS: Limited due to confusion, though were positive for headache and neck and right hip pain. PHYSICAL EXAMINATION GENERAL: No acute distress, hyperkinetic. VITAL SIGNS: Temperature 98.3 Fahrenheit, 76 pulse, 18 respirations, 92% oxygen on room air, 170/96 blood pressure. HEENT: Eyes: Conjunctivae pink and moist. Pupils are round, non-reactive to light. Normocephalic and atraumatic. Oral mucosa dry. Oropharynx clear. LYMPHATIC: No cervical lymphadenopathy noted. RESPIRATORY: Lungs clear to auscultation bilaterally throughout on room air. No accessory muscle use. CARDIAC: S1, S2. Heart rate regular. No murmurs, rubs, or gallops appreciated. ABDOMEN: Soft, nontender with positive bowel sounds x4. MUSCULOSKELETAL: No clubbing or cyanosis noted. Noted the patient to be moving all extremities pushing against side rails; however, when went to assess ability to keep arm raised, immediately both arms raised and they fell immediately to the bed. NEUROLOGIC: Left flat nasolabial fold with tongue deviation to the right. PSYCH: Alert and oriented to self and to place, but not to time or situation, appeared to be anxious. SKIN: No open areas or rashes appreciated. DIAGNOSTIC STUDIES/LAB DATA: A brain CT showed no acute intracranial process or traumatic injury, chronic findings of atrophy and small vessel ischemic change with unchanged ventriculomegaly. Cervical spine CT: No CT evidence for traumatic cervical spine injury, no significant change in magnitude of degenerative spondylosis and posterior element osteoarthritis compared to 05/15/19 exam. EKG showed sinus rhythm. Chest x-ray showed elevated lung volumes suggestive of potential obstructive lung disease. No acute cardiopulmonary process evident. Hip and pelvis x-ray showed no radiographic evidence for right hip fracture. Head CTA again showed 50% stenosis of the proximal right internal carotid artery , 50% stenosis of the left carotid bulb and ostium of the left internal carotid artery and approximate 90% stenosis at the junction of the proximal and mid segments of left internal carotid artery. All major arteries were patent. Creatinine of 1.07, glucose of 115. Total bilirubin 1.2. Total creatine kinase 568. Vitamin B12 596, folate 9.36. INR 1.03. RBC 5.44. Urine was negative. Toxicology negative for serum alcohol, less than 15 of acetaminophen, and less than 2.5 of salicylates. IMPRESSION: This is a 79-year-old female with a past medical history significant for pulmonary embolism, deep venous thrombosis, hypertension, ethanol abuse, and previous psych admissions, being admitted for possible transient ischemic attack versus encephalopathy of unspecified origin. ASSESSMENT AND PLAN: Again, this is a 79-year-old female with a past medical history significant for pulmonary embolism, deep venous thrombosis, hypertension , ETOH abuse, who is admitted on 06/23/19 for possible transient ischemic attack versus encephalopathy and EtOH withdrawal management. 1. Possible transient ischemic attack versus encephalopathy: Neuro consulted. CTA of head and neck ordered. Social Work consult placed. Neuro checks Q2H. Echo with bubble study. Tele monitoring. 2. ETOH abuse: [facility] protocol. Daily multivitamin, folic acid, and thiamine. 3. Hypertension: Start amlodipine 5 mg. Continue losartan as per home. 4. Urinary incontinence: Continue oxybutynin. 5. DVT prophylaxis: SCDs and Lovenox. 6. Code status: Full code. TIME SPENT: Time spent on this was 90 minutes with 30 minutes spent at the bedside. Case reviewed by my attending and they agree with the plan of care. [id number]/CPS #: [id number] HEATH
[2019-06-24] MEDS ORDERED: LORazepam INJ* 2 MG/ML 1 ML VIAL IV PUSH ONE (00:51)
[2019-06-24] MEDS ORDERED: Lorazepam PYXIS KEY PRN (00:51)
[2019-06-24 05:23] LABS: ABS Basophils 0.1 10^3/ul (0-0.2); ABS Eosinophils 0.2 10^3/ul (0-0.6); ABS Lymphocytes 1.5 10^3/ul (1.0-4.8); ABS Monocytes 0.6 10^3/ul (0-0.8); ABS Neutrophils 4.1 10^3/ul (1.5-7.7); Eosinophil % 2.9 %; Hematocrit 39 % (35-47); Hemoglobin 12.3 g/dL (12.0-16.0); Mean Corpuscular HGB Conc 32 g/dL (31-36); Mean Corpuscular Hemoglobin 27 pg (27-31); Mean Corpuscular Volume 85 fL (80-97); Mean Platelet Volume 6.9 fL (7.4-10.4); Platelet Count 248 10^3/uL (150-450); Red Blood Count 4.62 10^6 /uL (3.70-4.87); Red Cell Distribution Width 16 % (10-15); White Blood Count 6.3 10^3/uL (3.5-10.8)
[2019-06-24 05:37] LABS: BUN/Creatinine Ratio 14.9 (8-20); Calcium 8.4 mg/dL (8.6-10.3); EGFR African American 76.2 (>60); Potassium 3.1 mmol/L (3.5-5.0)
--- NOTE | 2019-06-24 07:56 | PN ---
Subjective Date of Service: 06/24/19 Interval History: 79 y/o F with H/O DVT, PE, HTN, HLD, Alcohol use disorder, Depression presented with dizziness and fall(twice). unable to follow command and left facial droop on exam. 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 Suspected TIA>Encephalopathy>Etoh abuse. Paitent was combative at night and scored on WAM and ativan was given.VSS Patient doesnot complain of anything. On questioning she says she has some pain on lower back. She says she wants to go home. Objective Active Medications: Acetaminophen (Tylenol Tab*) 650 mg PO Q4H PRN PRN Reason: MILD PAIN or TEMP > 100.4 Amlodipine Besylate (Norvasc Tab*) 5 mg PO DAILY [facility] Clopidogrel Bisulfate (Plavix Tab*) 75 mg PO QAM [facility] Enoxaparin Sodium (Lovenox(*)) 30 mg SUBCUT Q24H [facility] Last Admin: 06/23/19 19:49 Dose: 30 mg Folic Acid (Folvite Tab*) 1 mg PO DAILY [facility] Sodium Chloride (Ns 0.9% 1000 Ml) 1,000 mls @ 75 mls/hr IV PER RATE [facility] Last Admin: 06/23/19 20:01 Dose: 75 mls/hr Lorazepam (Ativan Tab(*)) 0 - [address] [facility]; Protocol Losartan Potassium (Cozaar Tab*) 100 mg PO DAILY [facility] Miscellaneous (Ativan Pyxis Harman) 1 ea N/A .ATIVAN IV HARMAN PRN PRN Reason: PYXIS HARMAN Multivitamins/Minerals (Theragran/Minerals Tab*) 1 tab PO DAILY [facility] Ondansetron HCl (Zofran Inj*) 4 mg IV Q4H PRN PRN Reason: NAUSEA/VOMITING Oxybutynin Chloride (Ditropan Xl Tab*) 15 mg PO QPM [facility] Last Admin: 06/23/19 19:48 Dose: Not Given Thiamine HCl (Vitamin B-1 Tab*) 100 mg PO DAILY [facility] Vital Signs - 8 hr 06/24/19 06/24/19 06/24/19 01:00 01:01 02:00 Temperature Pulse Rate 72 Respiratory 20 18 16 Rate Blood Pressure 158/68 (mmHg) O2 Sat by Pulse Oximetry 06/24/19 06/24/19 06/24/19 03:15 04:55 06:46 Temperature 98.3 F 98.1 F 98.3 F Pulse Rate 66 69 69 Respiratory 18 18 18 Rate Blood Pressure 130/75 140/76 146/78 (mmHg) O2 Sat by Pulse 96 94 97 Oximetry Oxygen Devices in Use Now: None Exam: Patient is lying on a bed with no acute distress. HEENT: Normocephalic, atraumatic Lungs: clear on ascultation Heart: Normal heart sound heard with no murmur Abdomen: Soft, nondistended and nontender. NOrmal BS heard Extremities: Abrasions on her b/l lower limb; no active bleeding Neuro: alert, conscious and oriented. There is asymmetry of nasolabial fold but no facial droop noted and tongue midline. Motor strength on left UE is 4/5 Result Diagrams: 06/24/19 05:08 06/24/19 05:08 Additional Lab and Data: Lab Results 06/23/19 06/23/19 06/23/19 Range/Units 10:03 10:03 10:03 WBC 9.1 (3.5-10.8) 10^3/uL RBC 5.44 H (3.70-4.87) 10^6 /uL Hgb 14.4 (12.0-16.0) g/dL Hct 45 (35-47) % MCV 82 (80-97) fL MCH 27 (27-31) pg MCHC 32 (31-36) g/dL RDW 15 (10-15) % Plt Count 286 (150-450) 10^3/uL MPV 7.1 L (7.4-10.4) fL Neut % (Auto) 76.1 % Lymph % (Auto) 14.5 % [place] % (Auto) 7.1 % Eos % (Auto) 0.9 % Baso % (Auto) 1.4 % Absolute Neuts (auto) 6.9 (1.5-7.7) 10^3/ul Absolute Lymphs (auto) 1.3 (1.0-4.8) 10^3/ul Absolute Monos (auto) 0.6 (0-0.8) 10^3/ul Absolute Eos (auto) 0.1 (0-0.6) 10^3/ul Absolute Basos (auto) 0.1 (0-0.2) 10^3/ul Absolute Nucleated RBC 0.0 10^3/ul Nucleated RBC % 0.1 INR (Anticoag Therapy) 1.03 (0.82-1.09) Sodium 137 (135-145) mmol/L Potassium 4.0 (3.5-5.0) mmol/L Chloride 104 (101-111) mmol/L Carbon Dioxide 25 (22-32) mmol/L Anion Gap 8 (2-11) mmol/L BUN 17 (6-24) mg/dL Creatinine 1.07 H (0.51-0.95) mg/dL Est GFR ( Amer) 60.0 (>60) Est GFR (Non-Af Amer) 49.6 (>60) BUN/Creatinine Ratio 15.9 (8-20) Glucose 115 H (70-100) mg/dL Lactic Acid (0.5-2.0) mmol/L Calcium 9.6 (8.6-10.3) mg/dL Magnesium 2.1 (1.9-2.7) mg/dL Total Bilirubin 1.20 H (0.2-1.0) mg/dL AST 31 (13-39) U/L ALT 13 (7-52) U/L Alkaline Phosphatase 101 (34-104) U/L Ammonia (16-53) mcmol/L Total Creatine Kinase 568 H (10-223) U/L Troponin I 0.01 (<0.04) ng/mL Total Protein 7.2 (6.4-8.9) g/dL Albumin 4.4 (3.2-5.2) g/dL Globulin 2.8 (2-4) g/dL Albumin/Globulin Ratio 1.6 (1-3) Urine Color Urine Appearance Urine pH (5-9) Ur Specific [place] (1.010-1.030) Urine Protein (Negative) Urine Ketones (Negative) Urine Blood (Negative) Urine Nitrate (Negative) Urine Bilirubin (Negative) Urine Urobilinogen (Negative) Ur Leukocyte Esterase (Negative) Urine Glucose (Negative) Salicylates < 2.50 (<30) mg/dL Urine Opiates Screen (None Detect) Acetaminophen < 15 mcg/mL Ur Barbiturates Screen (None Detect) Ur Phencyclidine Scrn (None Detect) Ur Amphetamines Screen (None Detect) U Benzodiazepines Scrn (None Detect) Urine Cocaine Screen (None Detect) U Cannabinoids Screen (None Detect) Serum Alcohol < 10 (<10) mg/dL 06/23/19 06/23/19 06/23/19 Range/Units 10:03 10:03 11:57 WBC (3.5-10.8) 10^3/uL RBC (3.70-4.87) 10^6 /uL Hgb (12.0-16.0) g/dL Hct (35-47) % MCV (80-97) fL MCH (27-31) pg MCHC (31-36) g/dL RDW (10-15) % Plt Count (150-450) 10^3/uL MPV (7.4-10.4) fL Neut % (Auto) % Lymph % (Auto) % [place] % (Auto) % Eos % (Auto) % Baso % (Auto) % Absolute Neuts (auto) (1.5-7.7) 10^3/ul Absolute Lymphs (auto) (1.0-4.8) 10^3/ul Absolute Monos (auto) (0-0.8) 10^3/ul Absolute Eos (auto) (0-0.6) 10^3/ul Absolute Basos (auto) (0-0.2) 10^3/ul Absolute Nucleated RBC 10^3/ul Nucleated RBC % INR (Anticoag Therapy) (0.82-1.09) Sodium (135-145) mmol/L Potassium (3.5-5.0) mmol/L Chloride (101-111) mmol/L Carbon Dioxide (22-32) mmol/L Anion Gap (2-11) mmol/L BUN (6-24) mg/dL Creatinine (0.51-0.95) mg/dL Est GFR ( Amer) (>60) Est GFR (Non-Af Amer) (>60) BUN/Creatinine Ratio (8-20) Glucose (70-100) mg/dL Lactic Acid 1.3 (0.5-2.0) mmol/L Calcium (8.6-10.3) mg/dL Magnesium (1.9-2.7) mg/dL Total Bilirubin (0.2-1.0) mg/dL AST (13-39) U/L ALT (7-52) U/L Alkaline Phosphatase (34-104) U/L Ammonia 38 (16-53) mcmol/L Total Creatine Kinase (10-223) U/L Troponin I (<0.04) ng/mL Total Protein (6.4-8.9) g/dL Albumin (3.2-5.2) g/dL Globulin (2-4) g/dL Albumin/Globulin Ratio (1-3) Urine Color Yellow Urine Appearance Clear Urine pH 6.0 (5-9) Ur Specific [place] 1.013 (1.010-1.030) Urine Protein Negative (Negative) Urine Ketones Negative (Negative) Urine Blood Negative (Negative) Urine Nitrate Negative (Negative) Urine Bilirubin Negative (Negative) Urine Urobilinogen Negative (Negative) Ur Leukocyte Esterase Negative (Negative) Urine Glucose Negative (Negative) Salicylates (<30) mg/dL Urine Opiates Screen (None Detect) Acetaminophen mcg/mL Ur Barbiturates Screen (None Detect) Ur Phencyclidine Scrn (None Detect) Ur Amphetamines Screen (None Detect) U Benzodiazepines Scrn (None Detect) Urine Cocaine Screen (None Detect) U Cannabinoids Screen (None Detect) Serum Alcohol (<10) mg/dL 06/23/19 Range/Units 11:57 WBC (3.5-10.8) 10^3/uL RBC (3.70-4.87) 10^6 /uL Hgb (12.0-16.0) g/dL Hct (35-47) % MCV (80-97) fL MCH (27-31) pg MCHC (31-36) g/dL RDW (10-15) % Plt Count (150-450) 10^3/uL MPV (7.4-10.4) fL Neut % (Auto) % Lymph % (Auto) % [place] % (Auto) % Eos % (Auto) % Baso % (Auto) % Absolute Neuts (auto) (1.5-7.7) 10^3/ul Absolute Lymphs (auto) (1.0-4.8) 10^3/ul Absolute Monos (auto) (0-0.8) 10^3/ul Absolute Eos (auto) (0-0.6) 10^3/ul Absolute Basos (auto) (0-0.2) 10^3/ul Absolute Nucleated RBC 10^3/ul Nucleated RBC % INR (Anticoag Therapy) (0.82-1.09) Sodium (135-145) mmol/L Potassium (3.5-5.0) mmol/L Chloride (101-111) mmol/L Carbon Dioxide (22-32) mmol/L Anion Gap (2-11) mmol/L BUN (6-24) mg/dL Creatinine (0.51-0.95) mg/dL Est GFR ( Amer) (>60) Est GFR (Non-Af Amer) (>60) BUN/Creatinine Ratio (8-20) Glucose (70-100) mg/dL Lactic Acid (0.5-2.0) mmol/L Calcium (8.6-10.3) mg/dL Magnesium (1.9-2.7) mg/dL Total Bilirubin (0.2-1.0) mg/dL AST (13-39) U/L ALT (7-52) U/L Alkaline Phosphatase (34-104) U/L Ammonia (16-53) mcmol/L Total Creatine Kinase (10-223) U/L Troponin I (<0.04) ng/mL Total Protein (6.4-8.9) g/dL Albumin (3.2-5.2) g/dL Globulin (2-4) g/dL Albumin/Globulin Ratio (1-3) Urine Color Urine Appearance Urine pH (5-9) Ur Specific [place] (1.010-1.030) Urine Protein (Negative) Urine Ketones (Negative) Urine Blood (Negative) Urine Nitrate (Negative) Urine Bilirubin (Negative) Urine Urobilinogen (Negative) Ur Leukocyte Esterase (Negative) Urine Glucose (Negative) Salicylates (<30) mg/dL Urine Opiates Screen None detected (None Detect) Acetaminophen mcg/mL Ur Barbiturates Screen None detected (None Detect) Ur Phencyclidine Scrn None detected (None Detect) Ur Amphetamines Screen None detected (None Detect) U Benzodiazepines Scrn None detected (None Detect) Urine Cocaine Screen None detected (None Detect) U Cannabinoids Screen None detected (None Detect) Serum Alcohol (<10) mg/dL Assess/Plan/Problems-Billing Assessment: 79 y/o F with H/O DVT, PE, HTN, HLD, Alcohol use disorder, Depression presented with dizziness and fall(tripped on walker). UNable to follow command and left facial droop on exam. No LOC, head injury, or seizures. 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 Suspected TIA>Encephalopathy>Etoh abuse. - Patient Problems (1) Facial droop Current Visit: Yes Status: Acute Code(s): R29.810 - FACIAL WEAKNESS SNOMED Code(s): 93502478 Comment: Isolated left facial droop during presentation. Asymmetry of nasoolabial fold with some mild weakness on left hand. I ddnt notice any facial droop. Has h/o stroke but patient not sure about residual paralysis. Ct brain didnot show any acute intracranial pathology. ventriculomegaly seen which is unchanged from previous. chronic microvascular changes noted Head CTA shows 90% stenosis of juntion of proximal and mid segmetn of LCA. 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 Plan is continue her plavix, do mri w/o contrast (2) Fall Current Visit: Yes Status: Acute Comment: tripped over walker. has multiple fall in the past No head injury and loc and seizure complains of low backpain over sacrum. hip xray normal plan is to do xray of sacrum concern for NPH (3) Hypertensive urgency Current Visit: No Status: Acute Code(s): I10 - ESSENTIAL (PRIMARY) HYPERTENSION SNOMED Code(s): 584249636 Comment: presented with bp of 183/130. Got iv labetalol now on losartan and amlodipine (4) Urinary incontinence Current Visit: Yes Status: Acute Code(s): R32 - UNSPECIFIED URINARY INCONTINENCE SNOMED Code(s): 959583939 Comment: On oxybutinin (5) Alcohol use disorder Current Visit: Yes Status: Acute Code(s): PWO8140 - SNOMED Code(s): 8367126 Comment: gives hx of consuming 1 drink per day at night. On [place] protocol; not scoring (6) DVT prophylaxis Current Visit: No Status: Acute Code(s): TIU8278 - SNOMED Code(s): 991821870 Comment: on lovenox (7) Full code status Current Visit: No Status: Acute Code(s): Z78.9 - OTHER SPECIFIED HEALTH STATUS SNOMED Code(s): 153704709 Status and Disposition: Inpatient; Neurology following Attending: Jessy Al Attestation Documenting Resident: Mike Myers Supervising Physician: Jessy Al Attestation: This service has been performed in part by a resident under the direction of a teaching physician.I, Jessy Al, performed the service, or was physically present during the critical, or harman portions of the service, furnished by the resident. I participated in the management of the patient.
[2019-06-24] MEDS: NS 0.9% 1000 ML** 1,000 ML IV SCH (09:09)
[2019-06-24] MEDS: Losartan TAB* 25 MG PO SCH (09:09)
[2019-06-24] MEDS: Multivitamins/Minerals TAB PO SCH (09:10)
[2019-06-24] MEDS: Thiamine TAB* 100 MG TAB PO SCH (09:10)
[2019-06-24] MEDS: Folic Acid TAB* 1 MG PO SCH (09:10)
[2019-06-24] MEDS: Clopidogrel TAB* 75 MG PO SCH (09:10)
[2019-06-24] MEDS: amLODIPine TAB* 5 MG PO SCH (09:10)
--- NOTE | 2019-06-24 14:15 | PN ---
Subjective Date of Service: 06/24/19 Length of Stay: 1 Days Neurology is following for the evaluation of confusion and left facial droop. Interval History: I reviewed the consult note done by Dr. Castillo. I also review the previous consultations done by Drs. Patel, Bertha, and Santana. She has presented with headaches, confusion, falls, and agitation in the past, similar to yesterday's presentation. The patient stated that she was in the garage with her dog and she tripped over her walker. She fell but did not hit her head or lose consciousness. She is very unsteady on her feet and has used a walker for years. She does not drive. She lives alone though. She denied any new area of weakness. She was seen by Dr. Castillo yesterday and thought her falls were multifactorial and likely related to the combination of neuropathy and extensive white matter brain lesions. Please note that her most recent CT head that was completed yesterday showed ventriculomegaly. This was seen with previous CT scans since 2013. The size of the ventriculomegaly has changed over the years. CTA head and neck showed no evidence of large vessel occlusion. The patient denied any headache. She is not aware of any new facial asymmetry. She had endorsed some suicide ideation to the nursing staff yesterday but denied it today. She did tell me that her dog was the only reason she is alive. She also stated that there is nothing else that she looks forward to in life and that's why she drinks one shot of hard liquor at night, so she can go to sleep. Review of Systems: Denied CP, SOB, or palpitations. Objective Active Medications: Acetaminophen (Tylenol Tab*) 650 mg PO Q4H PRN PRN Reason: MILD PAIN or TEMP > 100.4 Amlodipine Besylate (Norvasc Tab*) 5 mg PO DAILY [facility] Last Admin: 06/24/19 09:10 Dose: 5 mg Clopidogrel Bisulfate (Plavix Tab*) 75 mg PO QAM [facility] Last Admin: 06/24/19 09:10 Dose: 75 mg Enoxaparin Sodium (Lovenox(*)) 30 mg SUBCUT Q24H [facility] Last Admin: 06/23/19 19:49 Dose: 30 mg Folic Acid (Folvite Tab*) 1 mg PO DAILY [facility] Last Admin: 06/24/19 09:10 Dose: 1 mg Sodium Chloride (Ns 0.9% 1000 Ml) 1,000 mls @ 75 mls/hr IV PER RATE [facility] Last Admin: 06/24/19 09:09 Dose: 75 mls/hr Lorazepam (Ativan Tab(*)) 0 - 6 mg PO .PER [facility] PROTOCOL [facility]; Protocol Losartan Potassium (Cozaar Tab*) 100 mg PO DAILY [facility] Last Admin: 06/24/19 09:09 Dose: 100 mg Miscellaneous (Ativan Pyxis Harman) 1 ea N/A .ATIVAN IV HARMAN PRN PRN Reason: PYXIS HARMAN Multivitamins/Minerals (Theragran/Minerals Tab*) 1 tab PO DAILY [facility] Last Admin: 06/24/19 09:10 Dose: 1 tab Ondansetron HCl (Zofran Inj*) 4 mg IV Q4H PRN PRN Reason: NAUSEA/VOMITING Oxybutynin Chloride (Ditropan Xl Tab*) 15 mg PO QPM [facility] Last Admin: 06/23/19 19:48 Dose: Not Given Thiamine HCl (Vitamin B-1 Tab*) 100 mg PO DAILY [facility] Last Admin: 06/24/19 09:10 Dose: 100 mg Vital Signs 06/23/19 06/23/19 06/23/19 14:45 15:00 15:16 Temperature Pulse Rate 93 97 91 Respiratory Rate Blood Pressure 200/111 192/113 (mmHg) O2 Sat by Pulse 98 90 87 Oximetry 06/23/19 06/23/19 06/23/19 15:26 15:32 15:37 Temperature Pulse Rate 78 77 Respiratory 20 Rate Blood Pressure 150/84 160/98 (mmHg) O2 Sat by Pulse 95 89 Oximetry 06/23/19 06/23/19 06/23/19 16:00 16:06 16:38 Temperature Pulse Rate 73 74 72 Respiratory Rate Blood Pressure 175/87 170/87 (mmHg) O2 Sat by Pulse 97 99 96 Oximetry 06/23/19 06/23/19 06/23/19 16:40 16:56 17:14 Temperature 98.5 F 98.3 F Pulse Rate 76 85 76 Respiratory 20 18 Rate Blood Pressure 170/96 158/82 170/96 (mmHg) O2 Sat by Pulse 92 96 92 Oximetry 06/23/19 06/23/19 06/23/19 19:00 19:15 20:00 Temperature 97.7 F Pulse Rate 74 Respiratory 16 18 18 Rate Blood Pressure 145/90 (mmHg) O2 Sat by Pulse 98 Oximetry 06/23/19 06/23/19 06/24/19 21:00 23:15 01:00 Temperature 98.3 F 98.4 F Pulse Rate 66 90 72 Respiratory 18 20 20 Rate Blood Pressure 99/64 163/66 158/68 (mmHg) O2 Sat by Pulse 95 94 Oximetry 06/24/19 06/24/19 06/24/19 01:01 02:00 03:15 Temperature 98.3 F Pulse Rate 66 Respiratory 18 16 18 Rate Blood Pressure 130/75 (mmHg) O2 Sat by Pulse 96 Oximetry 06/24/19 06/24/19 06/24/19 04:55 06:46 08:00 Temperature 98.1 F 98.3 F Pulse Rate 69 69 Respiratory 18 18 20 Rate Blood Pressure 140/76 146/78 (mmHg) O2 Sat by Pulse 94 97 Oximetry 06/24/19 06/24/19 06/24/19 09:00 11:00 13:00 Temperature 99.1 F 98.9 F 99.0 F Pulse Rate 78 84 88 Respiratory 20 20 20 Rate Blood Pressure 186/98 146/82 158/84 (mmHg) O2 Sat by Pulse 100 96 96 Oximetry Intake and Output Last 24 Hours 06/22/19 06/23/19 06/24/19 06/25/19 06:59 06:59 06:59 06:59 Intake Total 2856 840 Output Total 0 Balance 2856 840 Weight 118 lb Intake: IV Fluids 2856 NS (0.9%) 856 Oral 0 840 Output: Urine 0 Other: Estimated Void Medium # Voids 1 Oxygen Devices in Use Now: None Neurology Exam: General: Thin appearing female who is in pain around her coccyx. HEENT: Normocephelic/atraumatic, sclera anicteric, mucous membranes moist Neck: Supple Chest: Clear to auscultation bilaterally Cardiovascular: Regular rate and rhythm without murmurs, rubs, gallops Extremities: No clubbing, cyanosis, or edema. Pes cavus and hammer toes. Bruising of the right anterior thigh region. 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 Mild psychomotor delay. She answers correctly when asked about the president. Speech: fluent without dysarthria, repetition intact Cranial Nerve: PERRL, EOM intact, VFF, no nystagmus, mild left facial asymmetry and flattening of the NL fold on the left. The asymmetry corrects when smiling. Motor: moves all extremities symmetrically to command. Sensation: distal to proximal sensory gradient to pinprick demarcated at the middle of the leg bilaterally. Deep Tendon Reflex: absent ankle reflexes, trace knees. No spasticity. Finger to nose, rapid alternating movements intact without tremor, no dysdiadochokinesia Gait: wide based gait no ataxia. Only stood and took two steps and had to lay back down due to the ischial pain. Result Diagrams: 06/24/19 05:08 06/24/19 05:08 Additional Lab and Data: Lab Results 06/23/19 06/23/19 06/23/19 Range/Units 10:03 10:03 10:03 WBC 9.1 (3.5-10.8) 10^3/uL RBC 5.44 H (3.70-4.87) 10^6 /uL Hgb 14.4 (12.0-16.0) g/dL Hct 45 (35-47) % MCV 82 (80-97) fL MCH 27 (27-31) pg MCHC 32 (31-36) g/dL RDW 15 (10-15) % Plt Count 286 (150-450) 10^3/uL MPV 7.1 L (7.4-10.4) fL Neut % (Auto) 76.1 % Lymph % (Auto) 14.5 % [place] % (Auto) 7.1 % Eos % (Auto) 0.9 % Baso % (Auto) 1.4 % Absolute Neuts (auto) 6.9 (1.5-7.7) 10^3/ul Absolute Lymphs (auto) 1.3 (1.0-4.8) 10^3/ul Absolute Monos (auto) 0.6 (0-0.8) 10^3/ul Absolute Eos (auto) 0.1 (0-0.6) 10^3/ul Absolute Basos (auto) 0.1 (0-0.2) 10^3/ul Absolute Nucleated RBC 0.0 10^3/ul Nucleated RBC % 0.1 INR (Anticoag Therapy) 1.03 (0.82-1.09) Sodium 137 (135-145) mmol/L Potassium 4.0 (3.5-5.0) mmol/L Chloride 104 (101-111) mmol/L Carbon Dioxide 25 (22-32) mmol/L Anion Gap 8 (2-11) mmol/L BUN 17 (6-24) mg/dL Creatinine 1.07 H (0.51-0.95) mg/dL Est GFR ( Amer) 60.0 (>60) Est GFR (Non-Af Amer) 49.6 (>60) BUN/Creatinine Ratio 15.9 (8-20) Glucose 115 H (70-100) mg/dL Lactic Acid (0.5-2.0) mmol/L Calcium 9.6 (8.6-10.3) mg/dL Magnesium 2.1 (1.9-2.7) mg/dL Total Bilirubin 1.20 H (0.2-1.0) mg/dL AST 31 (13-39) U/L ALT 13 (7-52) U/L Alkaline Phosphatase 101 (34-104) U/L Ammonia (16-53) mcmol/L Total Creatine Kinase 568 H (10-223) U/L Troponin I 0.01 (<0.04) ng/mL Total Protein 7.2 (6.4-8.9) g/dL Albumin 4.4 (3.2-5.2) g/dL Globulin 2.8 (2-4) g/dL Albumin/Globulin Ratio 1.6 (1-3) Urine Color Urine Appearance Urine pH (5-9) Ur Specific [place] (1.010-1.030) Urine Protein (Negative) Urine Ketones (Negative) Urine Blood (Negative) Urine Nitrate (Negative) Urine Bilirubin (Negative) Urine Urobilinogen (Negative) Ur Leukocyte Esterase (Negative) Urine Glucose (Negative) Salicylates < 2.50 (<30) mg/dL Urine Opiates Screen (None Detect) Acetaminophen < 15 mcg/mL Ur Barbiturates Screen (None Detect) Ur Phencyclidine Scrn (None Detect) Ur Amphetamines Screen (None Detect) U Benzodiazepines Scrn (None Detect) Urine Cocaine Screen (None Detect) U Cannabinoids Screen (None Detect) Serum Alcohol < 10 (<10) mg/dL 06/23/19 06/23/19 06/23/19 Range/Units 10:03 10:03 11:57 WBC (3.5-10.8) 10^3/uL RBC (3.70-4.87) 10^6 /uL Hgb (12.0-16.0) g/dL Hct (35-47) % MCV (80-97) fL MCH (27-31) pg MCHC (31-36) g/dL RDW (10-15) % Plt Count (150-450) 10^3/uL MPV (7.4-10.4) fL Neut % (Auto) % Lymph % (Auto) % [place] % (Auto) % Eos % (Auto) % Baso % (Auto) % Absolute Neuts (auto) (1.5-7.7) 10^3/ul Absolute Lymphs (auto) (1.0-4.8) 10^3/ul Absolute Monos (auto) (0-0.8) 10^3/ul Absolute Eos (auto) (0-0.6) 10^3/ul Absolute Basos (auto) (0-0.2) 10^3/ul Absolute Nucleated RBC 10^3/ul Nucleated RBC % INR (Anticoag Therapy) (0.82-1.09) Sodium (135-145) mmol/L Potassium (3.5-5.0) mmol/L Chloride (101-111) mmol/L Carbon Dioxide (22-32) mmol/L Anion Gap (2-11) mmol/L BUN (6-24) mg/dL Creatinine (0.51-0.95) mg/dL Est GFR ( Amer) (>60) Est GFR (Non-Af Amer) (>60) BUN/Creatinine Ratio (8-20) Glucose (70-100) mg/dL Lactic Acid 1.3 (0.5-2.0) mmol/L Calcium (8.6-10.3) mg/dL Magnesium (1.9-2.7) mg/dL Total Bilirubin (0.2-1.0) mg/dL AST (13-39) U/L ALT (7-52) U/L Alkaline Phosphatase (34-104) U/L Ammonia 38 (16-53) mcmol/L Total Creatine Kinase (10-223) U/L Troponin I (<0.04) ng/mL Total Protein (6.4-8.9) g/dL Albumin (3.2-5.2) g/dL Globulin (2-4) g/dL Albumin/Globulin Ratio (1-3) Urine Color Yellow Urine Appearance Clear Urine pH 6.0 (5-9) Ur Specific [place] 1.013 (1.010-1.030) Urine Protein Negative (Negative) Urine Ketones Negative (Negative) Urine Blood Negative (Negative) Urine Nitrate Negative (Negative) Urine Bilirubin Negative (Negative) Urine Urobilinogen Negative (Negative) Ur Leukocyte Esterase Negative (Negative) Urine Glucose Negative (Negative) Salicylates (<30) mg/dL Urine Opiates Screen (None Detect) Acetaminophen mcg/mL Ur Barbiturates Screen (None Detect) Ur Phencyclidine Scrn (None Detect) Ur Amphetamines Screen (None Detect) U Benzodiazepines Scrn (None Detect) Urine Cocaine Screen (None Detect) U Cannabinoids Screen (None Detect) Serum Alcohol (<10) mg/dL 06/23/19 Range/Units 11:57 WBC (3.5-10.8) 10^3/uL RBC (3.70-4.87) 10^6 /uL Hgb (12.0-16.0) g/dL Hct (35-47) % MCV (80-97) fL MCH (27-31) pg MCHC (31-36) g/dL RDW (10-15) % Plt Count (150-450) 10^3/uL MPV (7.4-10.4) fL Neut % (Auto) % Lymph % (Auto) % [place] % (Auto) % Eos % (Auto) % Baso % (Auto) % Absolute Neuts (auto) (1.5-7.7) 10^3/ul Absolute Lymphs (auto) (1.0-4.8) 10^3/ul Absolute Monos (auto) (0-0.8) 10^3/ul Absolute Eos (auto) (0-0.6) 10^3/ul Absolute Basos (auto) (0-0.2) 10^3/ul Absolute Nucleated RBC 10^3/ul Nucleated RBC % INR (Anticoag Therapy) (0.82-1.09) Sodium (135-145) mmol/L Potassium (3.5-5.0) mmol/L Chloride (101-111) mmol/L Carbon Dioxide (22-32) mmol/L Anion Gap (2-11) mmol/L BUN (6-24) mg/dL Creatinine (0.51-0.95) mg/dL Est GFR ( Amer) (>60) Est GFR (Non-Af Amer) (>60) BUN/Creatinine Ratio (8-20) Glucose (70-100) mg/dL Lactic Acid (0.5-2.0) mmol/L Calcium (8.6-10.3) mg/dL Magnesium (1.9-2.7) mg/dL Total Bilirubin (0.2-1.0) mg/dL AST (13-39) U/L ALT (7-52) U/L Alkaline Phosphatase (34-104) U/L Ammonia (16-53) mcmol/L Total Creatine Kinase (10-223) U/L Troponin I (<0.04) ng/mL Total Protein (6.4-8.9) g/dL Albumin (3.2-5.2) g/dL Globulin (2-4) g/dL Albumin/Globulin Ratio (1-3) Urine Color Urine Appearance Urine pH (5-9) Ur Specific [place] (1.010-1.030) Urine Protein (Negative) Urine Ketones (Negative) Urine Blood (Negative) Urine Nitrate (Negative) Urine Bilirubin (Negative) Urine Urobilinogen (Negative) Ur Leukocyte Esterase (Negative) Urine Glucose (Negative) Salicylates (<30) mg/dL Urine Opiates Screen None detected (None Detect) Acetaminophen mcg/mL Ur Barbiturates Screen None detected (None Detect) Ur Phencyclidine Scrn None detected (None Detect) Ur Amphetamines Screen None detected (None Detect) U Benzodiazepines Scrn None detected (None Detect) Urine Cocaine Screen None detected (None Detect) U Cannabinoids Screen None detected (None Detect) Serum Alcohol (<10) mg/dL Microbiology and Other Data: Microbiology 06/24/19 00:30 Nasal Screen MRSA (PCR) - Final Nasal Mrsa Not Detected Assessment/Plan Ms. Hurley is a 79-year-old female with depression who has had multiple similar presentation in the past for falls and confusion, she presented to [facility] after a fall. She was found to have a slight facial droop on the left. 1. Isolated left facial droop in a patient who has advanced small vessel microvascular disease- I don't suspect a new stroke or if this is even a new finding. Pending brain MRI. Continue Plavix therapy and good BP control ( normotensive range). 2. 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 3. Ventriculomegaly- the patient has history of memory impairment, falls, and incontinence in the past. Obtain an MRI brain without contrast to evaluate for any ventriculomegaly disproportional to the cortical atrophy. If there is evidence of worsening ventriculomegaly, we will need to do large volume lumbar puncture to check her gait function before and after the procedure. The patient will need to particiate with PT before we can consider assessing her for NPH. Also, she is having trouble walking now after the fall due to coccyx pain. 4. Coccyx pain- defer further imaging to the primary team. Consider an XR of the sacrum. I will continue to follow. We are pending an MRI brain without contrast. If there is no change in the ventriculomegaly, no further work-up is recommended ( such as an LP).
--- NOTE | 2019-06-24 14:36 | ECHO ---
*[facility]* [place] [address] Fax #: [phone] Transthoracic Echocardiogram Patient: Linda Hurley : 1940 Study Date: 06/24/2019 Age: 79 Gender: F HR: 86 bpm Height: 61 in /154.9 cm BSA: 1.51 m^2 Weight: 117.8 lb /53.5 kg BMI: 22.3 kg/m^2 *Addressing Machine Operator: * Serena Shell RDCS RN *Referring Physician: * Toshia Burris *Reading Physician: * Sami Grace MD Indications: TIA. History: Coronary artery disease. Transient ischemic attack. DVT. Pulmonary Embolism. Asthma. ETOH abuse. Risk factors: Hypertension. Dyslipidemia. Conclusions Summary: - Left ventricle: Systolic function is normal. The estimated ejection fraction is 55-60%. Wall motion is normal; there are no regional wall motion abnormalities. - Right ventricle: Systolic function is normal. - Atrial septum: Cannot exclude shunting by color flow Doppler on suboptimal imaging. Bubble study was negative. Images 109 and 110. - Mitral valve: There is trace to mild regurgitation. - Aortic valve: There is no evidence of stenosis. There is trace to mild regurgitation. - Tricuspid valve: There is trace to mild regurgitation. - Pulmonic valve: There is trace to mild regurgitation. - Pericardium, extracardiac: There is no significant pericardial effusion. - Pulmonary arteries: Systolic pressure can not be accurately estimated. Study data: Transthoracic echocardiogram. Procedure: Transthoracic echocardiography was performed. Image quality was fair. The study was technically limited due to poor patient compliance. Intravenous agitated saline was administered. A bubble study was performed. Images 109 and 110. Complete 2D, spectral Doppler, and color flow Doppler. Location: Bedside. Patient status: Inpatient. Patient room number: 436. Rhythm: Normal sinus rhythm with PVC's. Findings Left ventricle: The cavity size is normal. Wall thickness is mildly increased. Systolic function is normal. The estimated ejection fraction is 55-60%. Wall motion is normal; there are no regional wall motion abnormalities. There is no consistent Doppler evidence of clinically significant diastolic dysfunction. Right ventricle: The cavity size is normal. Systolic function is normal. Left atrium: The atrium is normal in size. Right atrium: The atrium is normal in size. Atrial septum: Cannot exclude shunting by color flow Doppler on suboptimal imaging. Bubble study was negative. Images 109 and 110. Mitral valve: The leaflets are mildly thickened. There is no evidence of stenosis. There is trace to mild regurgitation. Aortic valve: The valve is trileaflet. The leaflets are mildly thickened. There is no evidence of stenosis. There is trace to mild regurgitation. Tricuspid valve: The valve is structurally normal. There is no evidence of stenosis. There is trace to mild regurgitation. Pulmonic valve: Not well visualized. There is no evidence of stenosis. There is trace to mild regurgitation. Aorta: Aortic root: The aortic root is not dilated. Ascending aorta: The ascending aorta is poorly visualized. Aortic arch: The aortic arch is not dilated. Pericardium: There is no significant pericardial effusion. Pulmonary arteries: Not well visualized. Systolic pressure can not be accurately estimated. Systemic veins: Inferior vena cava: The vessel is normal in size. There is (>= 50%) respiratory change in the IVC dimension. Measurements Left ventricle Value Ref Right atrium Value Ref COURT, LAX 3.8 cm 3.8 - 5.2 ML dim, ES, A4C 3.0 cm 2.6 - 4.4 ESD, LAX 2.8 cm 2.2 - 3.5 SI dim, ES, A4C 3.4 cm 3.4 - 5.3 FS, LAX 27 % 27 - 45 PW, ED (H) 1.1 cm 0.6 - 0.9 Aortic valve Value Ref IVS/PW, ED 0.92 Carrie diam, ED 1.9 cm --------- E', lat carrie, TDI (L) 5.7 cm/sec >=10.0 Peak v, S 1.67 m/sec -- ------- E/e', lat carrie, 11 VTI, S 31.0 cm ----- ---- TDI Mean grad, S 6.0 mm Hg --------- E', med carrie, TDI (L) 4.8 cm/sec >=7.0 Peak grad, S 11.0 mm Hg -- ------- E/e', med carrie, 13 LVOT/AV, VTI ratio 0.72 ----- ---- TDI E', avg, TDI 5.3 cm/sec Mitral valve Value Ref E/e', avg, TDI 12 <=14 Peak E 0.61 m/sec -- ------- Peak A 1 m/sec --------- LVOT Value Ref Decel time 254 ms --------- Peak grabiel, S 1.22 m/sec Peak E/A ratio 0.6 --------- VTI, S 22.4 cm Peak grad, S 6 mm Hg Pulmonic valve Value Ref Mean grad, S 3 mm Hg Peak v, S 0.8 m/sec --------- Peak grad, S 3.0 mm Hg --------- Ventricular septum Value Ref IVS, ED (H) 1.0 cm 0.6 - 0.9 Aortic root Value Ref Root diam 2.8 cm <3.8 Right ventricle Value Ref COURT minor ax, 2.5 cm 1.9 - 3.5 Aortic arch Value Ref A4C mid Arch diam 1.8 cm --------- Left atrium Value Ref Decending aorta Value Ref AP dim, ES (L) 2.50 cm 2.70 - Isabella peak grabiel 0.69 m/sec --------- 3.80 ML dim, A4C 3.3 cm Inferior vena cava Value Ref SI dim, A4C 3.6 cm Diam 1.5 cm --------- Vol/bsa, ES, 1-p 12 ml/m^2 11 - 40 A4C Vol/bsa, ES, A/L 19 ml/m^2 16 - 34 Legend: (L) and (H) jaxson values outside specified reference range. Prepared and electronically signed by Sami Grace MD 06/24/2019 14:36
[2019-06-24] MEDS: Enoxaparin(*) 30 MG/0.3 ML SYR SUBCUT SCH (18:56)
[2019-06-24] MEDS: Atorvastatin* 40 MG TAB PO SCH (18:56)
[2019-06-24] MEDS: Oxybutynin XL TAB* 5 MG PO SCH (18:57)
[2019-06-24] MEDS: Acetaminophen TAB* 325 MG PO PRN (20:40)
[2019-06-24] MEDS: rOPINIRole TAB* 1 MG PO SCH (22:58)
[2019-06-25] MEDS: NS 0.9% 1000 ML** 1,000 ML IV SCH ×2 (02:12→21:38)
--- NOTE | 2019-06-25 06:54 | PN ---
Subjective Date of Service: 06/25/19 Interval History: HD 2 on 06/25 79 y/o F with H/O DVT, PE, HTN, HLD, Alcohol use disorder, Depression presented with dizziness and fall(twice). unable to follow command and left facial droop on exam. 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 MRI brain negative for any intracranial pathology; chronic changes Overnight- concern for memory deficit VS stable NO complaint at present. Wants to go home. Objective Active Medications: Acetaminophen (Tylenol Tab*) 650 mg PO Q4H PRN PRN Reason: MILD PAIN or TEMP > 100.4 Last Admin: 06/24/19 20:40 Dose: 650 mg Amlodipine Besylate (Norvasc Tab*) 5 mg PO DAILY [facility] Last Admin: 06/24/19 09:10 Dose: 5 mg Atorvastatin Calcium (Lipitor*) 40 mg PO 1700 [facility] Last Admin: 06/24/19 18:56 Dose: Not Given Clopidogrel Bisulfate (Plavix Tab*) 75 mg PO QAM [facility] Last Admin: 06/24/19 09:10 Dose: 75 mg Enoxaparin Sodium (Lovenox(*)) 30 mg SUBCUT Q24H [facility] Last Admin: 06/24/19 18:56 Dose: Not Given Folic Acid (Folvite Tab*) 1 mg PO DAILY [facility] Last Admin: 06/24/19 09:10 Dose: 1 mg Sodium Chloride (Ns 0.9% 1000 Ml) 1,000 mls @ 75 mls/hr IV PER RATE [facility] Last Admin: 06/25/19 02:12 Dose: 75 mls/hr Lorazepam (Ativan Tab(*)) 0 - 6 mg PO .PER [facility] PROTOCOL [facility]; Protocol Losartan Potassium (Cozaar Tab*) 100 mg PO DAILY [facility] Last Admin: 06/24/19 09:09 Dose: 100 mg Miscellaneous (Ativan Pyxis Harman) 1 ea N/A .ATIVAN IV HARMAN PRN PRN Reason: PYXIS HARMAN Multivitamins/Minerals (Theragran/Minerals Tab*) 1 tab PO DAILY [facility] Last Admin: 06/24/19 09:10 Dose: 1 tab Ondansetron HCl (Zofran Inj*) 4 mg IV Q4H PRN PRN Reason: NAUSEA/VOMITING Oxybutynin Chloride (Ditropan Xl Tab*) 15 mg PO QPM [facility] Last Admin: 06/24/19 18:57 Dose: Not Given Ropinirole HCl (Requip Tab*) 1 mg PO DAILY [facility] Last Admin: 06/24/19 22:58 Dose: 1 mg Thiamine HCl (Vitamin B-1 Tab*) 100 mg PO DAILY [facility] Last Admin: 06/24/19 09:10 Dose: 100 mg Vital Signs - 8 hr 06/24/19 06/25/19 06/25/19 23:00 01:00 03:00 Temperature 97.5 F 98.1 F 97.3 F Pulse Rate 66 79 83 Respiratory 16 16 17 Rate Blood Pressure 165/80 147/80 171/82 (mmHg) O2 Sat by Pulse 97 96 99 Oximetry 06/25/19 05:00 Temperature 98.5 F Pulse Rate 80 Respiratory 16 Rate Blood Pressure 148/95 (mmHg) O2 Sat by Pulse Oximetry Oxygen Devices in Use Now: None Exam: Patient is lying on a bed with no acute distress. HEENT: Normocephalic, atraumatic Lungs: clear on ascultation Heart: Normal heart sound heard with no murmur Abdomen: Soft, nondistended and nontender. NOrmal BS heard Extremities: Abrasions on her b/l lower limb; no active bleeding Neuro: alert, conscious and oriented. There is asymmetry of nasolabial fold but no facial droop noted and tongue midline. Motor strength normal Result Diagrams: 06/24/19 05:08 06/24/19 05:08 Additional Lab and Data: Lab Results 06/23/19 06/23/19 06/23/19 Range/Units 10:03 10:03 10:03 WBC 9.1 (3.5-10.8) 10^3/uL RBC 5.44 H (3.70-4.87) 10^6 /uL Hgb 14.4 (12.0-16.0) g/dL Hct 45 (35-47) % MCV 82 (80-97) fL MCH 27 (27-31) pg MCHC 32 (31-36) g/dL RDW 15 (10-15) % Plt Count 286 (150-450) 10^3/uL MPV 7.1 L (7.4-10.4) fL Neut % (Auto) 76.1 % Lymph % (Auto) 14.5 % Irion % (Auto) 7.1 % Eos % (Auto) 0.9 % Baso % (Auto) 1.4 % Absolute Neuts (auto) 6.9 (1.5-7.7) 10^3/ul Absolute Lymphs (auto) 1.3 (1.0-4.8) 10^3/ul Absolute Monos (auto) 0.6 (0-0.8) 10^3/ul Absolute Eos (auto) 0.1 (0-0.6) 10^3/ul Absolute Basos (auto) 0.1 (0-0.2) 10^3/ul Absolute Nucleated RBC 0.0 10^3/ul Nucleated RBC % 0.1 INR (Anticoag Therapy) 1.03 (0.82-1.09) Sodium 137 (135-145) mmol/L Potassium 4.0 (3.5-5.0) mmol/L Chloride 104 (101-111) mmol/L Carbon Dioxide 25 (22-32) mmol/L Anion Gap 8 (2-11) mmol/L BUN 17 (6-24) mg/dL Creatinine 1.07 H (0.51-0.95) mg/dL Est GFR ( Amer) 60.0 (>60) Est GFR (Non-Af Amer) 49.6 (>60) BUN/Creatinine Ratio 15.9 (8-20) Glucose 115 H (70-100) mg/dL Lactic Acid (0.5-2.0) mmol/L Calcium 9.6 (8.6-10.3) mg/dL Magnesium 2.1 (1.9-2.7) mg/dL Total Bilirubin 1.20 H (0.2-1.0) mg/dL AST 31 (13-39) U/L ALT 13 (7-52) U/L Alkaline Phosphatase 101 (34-104) U/L Ammonia (16-53) mcmol/L Total Creatine Kinase 568 H (10-223) U/L Troponin I 0.01 (<0.04) ng/mL Total Protein 7.2 (6.4-8.9) g/dL Albumin 4.4 (3.2-5.2) g/dL Globulin 2.8 (2-4) g/dL Albumin/Globulin Ratio 1.6 (1-3) Urine Color Urine Appearance Urine pH (5-9) Ur Specific [place] (1.010-1.030) Urine Protein (Negative) Urine Ketones (Negative) Urine Blood (Negative) Urine Nitrate (Negative) Urine Bilirubin (Negative) Urine Urobilinogen (Negative) Ur Leukocyte Esterase (Negative) Urine Glucose (Negative) Salicylates < 2.50 (<30) mg/dL Urine Opiates Screen (None Detect) Acetaminophen < 15 mcg/mL Ur Barbiturates Screen (None Detect) Ur Phencyclidine Scrn (None Detect) Ur Amphetamines Screen (None Detect) U Benzodiazepines Scrn (None Detect) Urine Cocaine Screen (None Detect) U Cannabinoids Screen (None Detect) Serum Alcohol < 10 (<10) mg/dL 06/23/19 06/23/19 06/23/19 Range/Units 10:03 10:03 11:57 WBC (3.5-10.8) 10^3/uL RBC (3.70-4.87) 10^6 /uL Hgb (12.0-16.0) g/dL Hct (35-47) % MCV (80-97) fL MCH (27-31) pg MCHC (31-36) g/dL RDW (10-15) % Plt Count (150-450) 10^3/uL MPV (7.4-10.4) fL Neut % (Auto) % Lymph % (Auto) % Irion % (Auto) % Eos % (Auto) % Baso % (Auto) % Absolute Neuts (auto) (1.5-7.7) 10^3/ul Absolute Lymphs (auto) (1.0-4.8) 10^3/ul Absolute Monos (auto) (0-0.8) 10^3/ul Absolute Eos (auto) (0-0.6) 10^3/ul Absolute Basos (auto) (0-0.2) 10^3/ul Absolute Nucleated RBC 10^3/ul Nucleated RBC % INR (Anticoag Therapy) (0.82-1.09) Sodium (135-145) mmol/L Potassium (3.5-5.0) mmol/L Chloride (101-111) mmol/L Carbon Dioxide (22-32) mmol/L Anion Gap (2-11) mmol/L BUN (6-24) mg/dL Creatinine (0.51-0.95) mg/dL Est GFR ( Amer) (>60) Est GFR (Non-Af Amer) (>60) BUN/Creatinine Ratio (8-20) Glucose (70-100) mg/dL Lactic Acid 1.3 (0.5-2.0) mmol/L Calcium (8.6-10.3) mg/dL Magnesium (1.9-2.7) mg/dL Total Bilirubin (0.2-1.0) mg/dL AST (13-39) U/L ALT (7-52) U/L Alkaline Phosphatase (34-104) U/L Ammonia 38 (16-53) mcmol/L Total Creatine Kinase (10-223) U/L Troponin I (<0.04) ng/mL Total Protein (6.4-8.9) g/dL Albumin (3.2-5.2) g/dL Globulin (2-4) g/dL Albumin/Globulin Ratio (1-3) Urine Color Yellow Urine Appearance Clear Urine pH 6.0 (5-9) Ur Specific [place] 1.013 (1.010-1.030) Urine Protein Negative (Negative) Urine Ketones Negative (Negative) Urine Blood Negative (Negative) Urine Nitrate Negative (Negative) Urine Bilirubin Negative (Negative) Urine Urobilinogen Negative (Negative) Ur Leukocyte Esterase Negative (Negative) Urine Glucose Negative (Negative) Salicylates (<30) mg/dL Urine Opiates Screen (None Detect) Acetaminophen mcg/mL Ur Barbiturates Screen (None Detect) Ur Phencyclidine Scrn (None Detect) Ur Amphetamines Screen (None Detect) U Benzodiazepines Scrn (None Detect) Urine Cocaine Screen (None Detect) U Cannabinoids Screen (None Detect) Serum Alcohol (<10) mg/dL 06/23/19 Range/Units 11:57 WBC (3.5-10.8) 10^3/uL RBC (3.70-4.87) 10^6 /uL Hgb (12.0-16.0) g/dL Hct (35-47) % MCV (80-97) fL MCH (27-31) pg MCHC (31-36) g/dL RDW (10-15) % Plt Count (150-450) 10^3/uL MPV (7.4-10.4) fL Neut % (Auto) % Lymph % (Auto) % [place] % (Auto) % Eos % (Auto) % Baso % (Auto) % Absolute Neuts (auto) (1.5-7.7) 10^3/ul Absolute Lymphs (auto) (1.0-4.8) 10^3/ul Absolute Monos (auto) (0-0.8) 10^3/ul Absolute Eos (auto) (0-0.6) 10^3/ul Absolute Basos (auto) (0-0.2) 10^3/ul Absolute Nucleated RBC 10^3/ul Nucleated RBC % INR (Anticoag Therapy) (0.82-1.09) Sodium (135-145) mmol/L Potassium (3.5-5.0) mmol/L Chloride (101-111) mmol/L Carbon Dioxide (22-32) mmol/L Anion Gap (2-11) mmol/L BUN (6-24) mg/dL Creatinine (0.51-0.95) mg/dL Est GFR ( Amer) (>60) Est GFR (Non-Af Amer) (>60) BUN/Creatinine Ratio (8-20) Glucose (70-100) mg/dL Lactic Acid (0.5-2.0) mmol/L Calcium (8.6-10.3) mg/dL Magnesium (1.9-2.7) mg/dL Total Bilirubin (0.2-1.0) mg/dL AST (13-39) U/L ALT (7-52) U/L Alkaline Phosphatase (34-104) U/L Ammonia (16-53) mcmol/L Total Creatine Kinase (10-223) U/L Troponin I (<0.04) ng/mL Total Protein (6.4-8.9) g/dL Albumin (3.2-5.2) g/dL Globulin (2-4) g/dL Albumin/Globulin Ratio (1-3) Urine Color Urine Appearance Urine pH (5-9) Ur Specific [place] (1.010-1.030) Urine Protein (Negative) Urine Ketones (Negative) Urine Blood (Negative) Urine Nitrate (Negative) Urine Bilirubin (Negative) Urine Urobilinogen (Negative) Ur Leukocyte Esterase (Negative) Urine Glucose (Negative) Salicylates (<30) mg/dL Urine Opiates Screen None detected (None Detect) Acetaminophen mcg/mL Ur Barbiturates Screen None detected (None Detect) Ur Phencyclidine Scrn None detected (None Detect) Ur Amphetamines Screen None detected (None Detect) U Benzodiazepines Scrn None detected (None Detect) Urine Cocaine Screen None detected (None Detect) U Cannabinoids Screen None detected (None Detect) Serum Alcohol (<10) mg/dL Microbiology and Other Data: Microbiology 06/24/19 00:30 Nasal Screen MRSA (PCR) - Final Nasal Mrsa Not Detected Assess/Plan/Problems-Billing Assessment: 79 y/o F with H/O DVT, PE, HTN, HLD, Alcohol use disorder, Depression presented with dizziness and fall(tripped on walker). UNable to follow command and left facial droop on exam. No LOC, head injury, or seizures. 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 MRI negative for acute changes. Xr of sacrum normal. - Patient Problems (1) Facial droop Current Visit: Yes Status: Acute Code(s): R29.810 - FACIAL WEAKNESS SNOMED Code(s): 49275539 Comment: Isolated left facial droop during presentation. Asymmetry of nasoolabial fold with normal motor strength. I ddnt notice any facial droop. Has h/o stroke but patient not sure about residual paralysis. MRi negative for acute changes Ct brain didnot show any acute intracranial pathology. ventriculomegaly seen which is unchanged from previous. chronic microvascular changes noted Head CTA shows 90% stenosis of juntion of proximal and mid segmetn of LCA. 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 Plan is to discharge her (2) Fall Current Visit: Yes Status: Acute Comment: tripped over walker. has multiple fall in the past No head injury and loc and seizure complains of low backpain over sacrum. hip xray normal xray of sacrum negative for fractures; pain med prn Awaiting for PT/OT comment on disposition of patient. (3) Hypertensive urgency Current Visit: No Status: Acute Code(s): I10 - ESSENTIAL (PRIMARY) HYPERTENSION SNOMED Code(s): 103832193 Comment: presented with bp of 183/130. Got iv labetalol now on losartan and amlodipine (4) Urinary incontinence Current Visit: Yes Status: Acute Code(s): R32 - UNSPECIFIED URINARY INCONTINENCE SNOMED Code(s): 712422222 Comment: On oxybutinin (5) Alcohol use disorder Current Visit: Yes Status: Acute Code(s): PJQ7651 - SNOMED Code(s): 0618988 Comment: gives hx of consuming 1 drink per day at night. On WAM protocol; not scoring (6) DVT prophylaxis Current Visit: No Status: Acute Code(s): EZA0696 - SNOMED Code(s): 081724136 Comment: on lovenox (7) Full code status Current Visit: No Status: Acute Code(s): Z78.9 - OTHER SPECIFIED HEALTH STATUS SNOMED Code(s): 938810166 Status and Disposition: Inpatient; Neurology following can be dc today; waiting for PT/OT comment on disposition of patient; she lives alone and had frequent falls in past Attending: Jessy Al Attestation Documenting Resident: Mike Myers Supervising Physician: Mikaela Jiménez Attestation: This service has been performed in part by a resident under the direction of a teaching physician.I, Mikaela Jiménez, performed the service, or was physically present during the critical, or harman portions of the service, furnished by the resident. I participated in the management of the patient.
[2019-06-25] MEDS: Thiamine TAB* 100 MG TAB PO SCH (08:28)
[2019-06-25] MEDS: Losartan TAB* 25 MG PO SCH (08:28)
[2019-06-25] MEDS: Clopidogrel TAB* 75 MG PO SCH (08:28)
[2019-06-25] MEDS: Multivitamins/Minerals TAB PO SCH (08:28)
[2019-06-25] MEDS: amLODIPine TAB* 5 MG PO SCH (08:28)
[2019-06-25] MEDS: rOPINIRole TAB* 1 MG PO SCH (08:28)
[2019-06-25] MEDS: Folic Acid TAB* 1 MG PO SCH (08:28)
--- NOTE | 2019-06-25 13:57 | PN ---
Subjective Date of Service: 06/25/19 Length of Stay: 2 Days Neurology is following for falls and left facial droop. Interval History: She feels well today. She spent the majority of time crying and sharing with the examiner the events that cause her to be depressed. Her daughter lives next door to her but barely spends anytime with the patient. Linda has stopped doing things that make her happy, like walking in the [place]. She used to take Lexapro but just stopped taking it. She has more crying outbursts when she thinks of her . She never cries without a reason (not pseudobulbar affect). She denied any headache or visual disturbance. She denied any new weakness. IMAGING STUDIES: MRI brain without contrast: no acute intracranial process. Stable ventriculomegaly. Diffuse cortical atrophy. No stroke. Sacral XRAY: no fractures. Review of Systems: Denied CP, SOB, or palpitations. Objective Active Medications: Acetaminophen (Tylenol Tab*) 650 mg PO Q4H PRN PRN Reason: MILD PAIN or TEMP > 100.4 Last Admin: 06/24/19 20:40 Dose: 650 mg Amlodipine Besylate (Norvasc Tab*) 5 mg PO DAILY [facility] Last Admin: 06/25/19 08:28 Dose: 5 mg Atorvastatin Calcium (Lipitor*) 40 mg PO 1700 [facility] Last Admin: 06/24/19 18:56 Dose: Not Given Clopidogrel Bisulfate (Plavix Tab*) 75 mg PO QAM [facility] Last Admin: 06/25/19 08:28 Dose: 75 mg Enoxaparin Sodium (Lovenox(*)) 30 mg SUBCUT Q24H [facility] Last Admin: 06/24/19 18:56 Dose: Not Given Folic Acid (Folvite Tab*) 1 mg PO DAILY [facility] Last Admin: 06/25/19 08:28 Dose: 1 mg Sodium Chloride (Ns 0.9% 1000 Ml) 1,000 mls @ 75 mls/hr IV PER RATE [facility] Last Admin: 06/25/19 02:12 Dose: 75 mls/hr Lorazepam (Ativan Tab(*)) 0 - 6 mg PO .PER [facility] PROTOCOL [facility]; Protocol Losartan Potassium (Cozaar Tab*) 100 mg PO DAILY [facility] Last Admin: 06/25/19 08:28 Dose: 100 mg Miscellaneous (Ativan Pyxis [place]) 1 ea N/A .ATIVAN IV [place] PRN PRN Reason: PYXIS [place] Multivitamins/Minerals (Theragran/Minerals Tab*) 1 tab PO DAILY [facility] Last Admin: 06/25/19 08:28 Dose: 1 tab Ondansetron HCl (Zofran Inj*) 4 mg IV Q4H PRN PRN Reason: NAUSEA/VOMITING Oxybutynin Chloride (Ditropan Xl Tab*) 15 mg PO QPM [facility] Last Admin: 06/24/19 18:57 Dose: Not Given Ropinirole HCl (Requip Tab*) 1 mg PO DAILY [facility] Last Admin: 06/25/19 08:28 Dose: 1 mg Thiamine HCl (Vitamin B-1 Tab*) 100 mg PO DAILY [facility] Last Admin: 06/25/19 08:28 Dose: 100 mg Vital Signs 06/25/19 06/25/19 06/25/19 08:00 09:19 11:18 Temperature 97.8 F 99.4 F Pulse Rate 79 73 Respiratory 20 20 20 Rate Blood Pressure 144/75 173/83 (mmHg) O2 Sat by Pulse 98 100 Oximetry 06/25/19 13:33 Temperature 98.8 F Pulse Rate 73 Respiratory 20 Rate Blood Pressure 151/74 (mmHg) O2 Sat by Pulse 99 Oximetry Intake and Output Last 24 Hours 06/23/19 06/24/19 06/25/19 06/26/19 06:59 06:59 06:59 06:59 Intake Total 2856 1840 480 Output Total 0 0 Balance 2856 1840 480 Weight 118 lb 118 lb Intake: IV Fluids 2856 300 NS (0.9%) 856 300 Oral 0 1540 480 Output: Urine 0 0 Other: Estimated Void Medium Medium Small # Bowel Movements 0 Estimated Stool Amount Small # Voids 1 3 Oxygen Devices in Use Now: None Neurology Exam: General: Thin appearing female who is in pain around her coccyx. HEENT: Normocephelic/atraumatic, sclera anicteric, mucous membranes moist Neck: Supple Chest: Clear to auscultation bilaterally Cardiovascular: Regular rate and rhythm without murmurs, rubs, gallops Extremities: No clubbing, cyanosis, or edema. Pes cavus and hammer toes. Bruising of the right anterior thigh region. Psych: flat affect, depressed mood. Neurological Findings: Awake, alert, and oriented to person, place, and time. Mild psychomotor delay. She answers correctly when asked about the president. Speech: fluent without dysarthria, repetition intact Cranial Nerve: PERRL, EOM intact, VFF, no nystagmus, mild left facial asymmetry and flattening of the NL fold on the left. The asymmetry corrects when smiling. Motor: moves all extremities symmetrically to command. Sensation: distal to proximal sensory gradient to pinprick demarcated at the middle of the leg bilaterally. Deep Tendon Reflex: absent ankle reflexes, trace knees. No spasticity. Finger to nose, rapid alternating movements intact without tremor, no dysdiadochokinesia Gait: wide based gait no ataxia. Result Diagrams: 06/24/19 05:08 06/24/19 05:08 Additional Lab and Data: Lab Results 06/23/19 06/23/19 06/23/19 Range/Units 10:03 10:03 10:03 WBC 9.1 (3.5-10.8) 10^3/uL RBC 5.44 H (3.70-4.87) 10^6 /uL Hgb 14.4 (12.0-16.0) g/dL Hct 45 (35-47) % MCV 82 (80-97) fL MCH 27 (27-31) pg MCHC 32 (31-36) g/dL RDW 15 (10-15) % Plt Count 286 (150-450) 10^3/uL MPV 7.1 L (7.4-10.4) fL Neut % (Auto) 76.1 % Lymph % (Auto) 14.5 % [place] % (Auto) 7.1 % Eos % (Auto) 0.9 % Baso % (Auto) 1.4 % Absolute Neuts (auto) 6.9 (1.5-7.7) 10^3/ul Absolute Lymphs (auto) 1.3 (1.0-4.8) 10^3/ul Absolute Monos (auto) 0.6 (0-0.8) 10^3/ul Absolute Eos (auto) 0.1 (0-0.6) 10^3/ul Absolute Basos (auto) 0.1 (0-0.2) 10^3/ul Absolute Nucleated RBC 0.0 10^3/ul Nucleated RBC % 0.1 INR (Anticoag Therapy) 1.03 (0.82-1.09) Sodium 137 (135-145) mmol/L Potassium 4.0 (3.5-5.0) mmol/L Chloride 104 (101-111) mmol/L Carbon Dioxide 25 (22-32) mmol/L Anion Gap 8 (2-11) mmol/L BUN 17 (6-24) mg/dL Creatinine 1.07 H (0.51-0.95) mg/dL Est GFR ( Amer) 60.0 (>60) Est GFR (Non-Af Amer) 49.6 (>60) BUN/Creatinine Ratio 15.9 (8-20) Glucose 115 H (70-100) mg/dL Lactic Acid (0.5-2.0) mmol/L Calcium 9.6 (8.6-10.3) mg/dL Magnesium 2.1 (1.9-2.7) mg/dL Total Bilirubin 1.20 H (0.2-1.0) mg/dL AST 31 (13-39) U/L ALT 13 (7-52) U/L Alkaline Phosphatase 101 (34-104) U/L Ammonia (16-53) mcmol/L Total Creatine Kinase 568 H (10-223) U/L Troponin I 0.01 (<0.04) ng/mL Total Protein 7.2 (6.4-8.9) g/dL Albumin 4.4 (3.2-5.2) g/dL Globulin 2.8 (2-4) g/dL Albumin/Globulin Ratio 1.6 (1-3) Urine Color Urine Appearance Urine pH (5-9) Ur Specific [place] (1.010-1.030) Urine Protein (Negative) Urine Ketones (Negative) Urine Blood (Negative) Urine Nitrate (Negative) Urine Bilirubin (Negative) Urine Urobilinogen (Negative) Ur Leukocyte Esterase (Negative) Urine Glucose (Negative) Salicylates < 2.50 (<30) mg/dL Urine Opiates Screen (None Detect) Acetaminophen < 15 mcg/mL Ur Barbiturates Screen (None Detect) Ur Phencyclidine Scrn (None Detect) Ur Amphetamines Screen (None Detect) U Benzodiazepines Scrn (None Detect) Urine Cocaine Screen (None Detect) U Cannabinoids Screen (None Detect) Serum Alcohol < 10 (<10) mg/dL 09/15/19 09/15/19 09/15/19 Range/Units 10:03 10:03 11:57 WBC (3.5-10.8) 10^3/uL RBC (3.70-4.87) 10^6 /uL Hgb (12.0-16.0) g/dL Hct (35-47) % MCV (80-97) fL MCH (27-31) pg MCHC (31-36) g/dL RDW (10-15) % Plt Count (150-450) 10^3/uL MPV (7.4-10.4) fL Neut % (Auto) % Lymph % (Auto) % [place] % (Auto) % Eos % (Auto) % Baso % (Auto) % Absolute Neuts (auto) (1.5-7.7) 10^3/ul Absolute Lymphs (auto) (1.0-4.8) 10^3/ul Absolute Monos (auto) (0-0.8) 10^3/ul Absolute Eos (auto) (0-0.6) 10^3/ul Absolute Basos (auto) (0-0.2) 10^3/ul Absolute Nucleated RBC 10^3/ul Nucleated RBC % INR (Anticoag Therapy) (0.82-1.09) Sodium (135-145) mmol/L Potassium (3.5-5.0) mmol/L Chloride (101-111) mmol/L Carbon Dioxide (22-32) mmol/L Anion Gap (2-11) mmol/L BUN (6-24) mg/dL Creatinine (0.51-0.95) mg/dL Est GFR ( Amer) (>60) Est GFR (Non-Af Amer) (>60) BUN/Creatinine Ratio (8-20) Glucose (70-100) mg/dL Lactic Acid 1.3 (0.5-2.0) mmol/L Calcium (8.6-10.3) mg/dL Magnesium (1.9-2.7) mg/dL Total Bilirubin (0.2-1.0) mg/dL AST (13-39) U/L ALT (7-52) U/L Alkaline Phosphatase (34-104) U/L Ammonia 38 (16-53) mcmol/L Total Creatine Kinase (10-223) U/L Troponin I (<0.04) ng/mL Total Protein (6.4-8.9) g/dL Albumin (3.2-5.2) g/dL Globulin (2-4) g/dL Albumin/Globulin Ratio (1-3) Urine Color Yellow Urine Appearance Clear Urine pH 6.0 (5-9) Ur Specific [place] 1.013 (1.010-1.030) Urine Protein Negative (Negative) Urine Ketones Negative (Negative) Urine Blood Negative (Negative) Urine Nitrate Negative (Negative) Urine Bilirubin Negative (Negative) Urine Urobilinogen Negative (Negative) Ur Leukocyte Esterase Negative (Negative) Urine Glucose Negative (Negative) Salicylates (<30) mg/dL Urine Opiates Screen (None Detect) Acetaminophen mcg/mL Ur Barbiturates Screen (None Detect) Ur Phencyclidine Scrn (None Detect) Ur Amphetamines Screen (None Detect) U Benzodiazepines Scrn (None Detect) Urine Cocaine Screen (None Detect) U Cannabinoids Screen (None Detect) Serum Alcohol (<10) mg/dL 06/23/19 Range/Units 11:57 WBC (3.5-10.8) 10^3/uL RBC (3.70-4.87) 10^6 /uL Hgb (12.0-16.0) g/dL Hct (35-47) % MCV (80-97) fL MCH (27-31) pg MCHC (31-36) g/dL RDW (10-15) % Plt Count (150-450) 10^3/uL MPV (7.4-10.4) fL Neut % (Auto) % Lymph % (Auto) % [place] % (Auto) % Eos % (Auto) % Baso % (Auto) % Absolute Neuts (auto) (1.5-7.7) 10^3/ul Absolute Lymphs (auto) (1.0-4.8) 10^3/ul Absolute Monos (auto) (0-0.8) 10^3/ul Absolute Eos (auto) (0-0.6) 10^3/ul Absolute Basos (auto) (0-0.2) 10^3/ul Absolute Nucleated RBC 10^3/ul Nucleated RBC % INR (Anticoag Therapy) (0.82-1.09) Sodium (135-145) mmol/L Potassium (3.5-5.0) mmol/L Chloride (101-111) mmol/L Carbon Dioxide (22-32) mmol/L Anion Gap (2-11) mmol/L BUN (6-24) mg/dL Creatinine (0.51-0.95) mg/dL Est GFR ( Amer) (>60) Est GFR (Non-Af Amer) (>60) BUN/Creatinine Ratio (8-20) Glucose (70-100) mg/dL Lactic Acid (0.5-2.0) mmol/L Calcium (8.6-10.3) mg/dL Magnesium (1.9-2.7) mg/dL Total Bilirubin (0.2-1.0) mg/dL AST (13-39) U/L ALT (7-52) U/L Alkaline Phosphatase (34-104) U/L Ammonia (16-53) mcmol/L Total Creatine Kinase (10-223) U/L Troponin I (<0.04) ng/mL Total Protein (6.4-8.9) g/dL Albumin (3.2-5.2) g/dL Globulin (2-4) g/dL Albumin/Globulin Ratio (1-3) Urine Color Urine Appearance Urine pH (5-9) Ur Specific [place] (1.010-1.030) Urine Protein (Negative) Urine Ketones (Negative) Urine Blood (Negative) Urine Nitrate (Negative) Urine Bilirubin (Negative) Urine Urobilinogen (Negative) Ur Leukocyte Esterase (Negative) Urine Glucose (Negative) Salicylates (<30) mg/dL Urine Opiates Screen None detected (None Detect) Acetaminophen mcg/mL Ur Barbiturates Screen None detected (None Detect) Ur Phencyclidine Scrn None detected (None Detect) Ur Amphetamines Screen None detected (None Detect) U Benzodiazepines Scrn None detected (None Detect) Urine Cocaine Screen None detected (None Detect) U Cannabinoids Screen None detected (None Detect) Serum Alcohol (<10) mg/dL Microbiology and Other Data: Microbiology 06/24/19 00:30 Nasal Screen MRSA (PCR) - Final Nasal Mrsa Not Detected Assessment/Plan Ms. Hurley is a 79-year-old female with depression who has had multiple similar presentation in the past for falls and confusion, [place] [facility]. She was found to have a slight facial droop on the left. An MRI brain showed no evidence for an acute stroke. 1. Isolated left facial droop in a patient who has advanced small vessel microvascular disease- She does not have a new stroke on MRI. This finding can be related to her extensive microvascular change. Continue Plavix therapy and good BP control (normotensive range). 2. 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 Discussed fall precautions. Encouraged her to always use a walker when ambulating. 3. Ventriculomegaly- most likely congenital with superimposed ex-vacou dilatation (atrophy of adjacent white matter). There is no significant change of the ventriculomegaly on MRI. She does not have any evidence of spasticity. 4. Coccyx pain- improving. No fracture on Xray. 5. Major depressive disorder- used to be on Lexapro. She is not on any antidepressant therapy. I recommend starting mirtazapine 15 mg nightly. This will improve her appetite and sleep. Side effects were discussed with the patient which include, and are not limited to weight gain, sedation, sleepiness , and worsening depression. 6. Bilateral ICA stenosis, severe (90%) on the left ICA- this is an incidental finding. Continue Plavix 75 mg daily and atorvastatin 40 mg nightly. She needs an urgent vascular surgery evaluation as an outpatient. I will sign off. Please contact us for any questions or concerns.
--- NOTE | 2019-06-25 14:22 | PN ---
Subjective Date of Service: 06/25/19 Length of Stay: 2 Days Neurology is following for vertigo. Interval History: He woke up without any dizziness but then noticed mild lightheadedness and foggy feeling at 0920 a.m. This is the same sensation he has experienced the past few days. This is after he had Losartan, amlodipine, and Requip. He still has elevated BP. He denied any visual disturbance, headache, focal weakness, or paresthesia. He is still waiting for the MRI to be done. CT head without contrast: no acute intracranial abnormalities x 2 (Jun 22 and Jun 23). CTA head and neck: no evidence for large vessel intracranial thrombus. There is a linear intraluminal filling defect in the posterior aspect of the right carotid bulb extending into the proximal ICA, suggestive of a short segmental dissection. No significant carotid artery narrowing is present. TTE 06/24/2019: the atrium is severely dilated. EF 40-45% Review of Systems: Denied CP, SOB, or palpitations. Objective Active Medications: Acetaminophen (Tylenol Tab*) 650 mg PO Q4H PRN PRN Reason: MILD PAIN or TEMP > 100.4 Last Admin: 06/24/19 20:40 Dose: 650 mg Amlodipine Besylate (Norvasc Tab*) 5 mg PO DAILY [facility] Last Admin: 06/25/19 08:28 Dose: 5 mg Atorvastatin Calcium (Lipitor*) 40 mg PO 1700 [facility] Last Admin: 06/24/19 18:56 Dose: Not Given Clopidogrel Bisulfate (Plavix Tab*) 75 mg PO QAM [facility] Last Admin: 06/25/19 08:28 Dose: 75 mg Enoxaparin Sodium (Lovenox(*)) 30 mg SUBCUT Q24H [facility] Last Admin: 06/24/19 18:56 Dose: Not Given Folic Acid (Folvite Tab*) 1 mg PO DAILY [facility] Last Admin: 06/25/19 08:28 Dose: 1 mg Sodium Chloride (Ns 0.9% 1000 Ml) 1,000 mls @ 75 mls/hr IV PER RATE [facility] Last Admin: 06/25/19 02:12 Dose: 75 mls/hr Lorazepam (Ativan Tab(*)) 0 - 6 mg PO .PER [facility] PROTOCOL [facility]; Protocol Losartan Potassium (Cozaar Tab*) 100 mg PO DAILY [facility] Last Admin: 06/25/19 08:28 Dose: 100 mg Miscellaneous (Ativan Pyxis Roberson) 1 ea N/A .ATIVAN IV ROBERSON PRN PRN Reason: PYXIS ROBERSON Multivitamins/Minerals (Theragran/Minerals Tab*) 1 tab PO DAILY [facility] Last Admin: 06/25/19 08:28 Dose: 1 tab Ondansetron HCl (Zofran Inj*) 4 mg IV Q4H PRN PRN Reason: NAUSEA/VOMITING Oxybutynin Chloride (Ditropan Xl Tab*) 15 mg PO QPM [facility] Last Admin: 06/24/19 18:57 Dose: Not Given Ropinirole HCl (Requip Tab*) 1 mg PO DAILY [facility] Last Admin: 06/25/19 08:28 Dose: 1 mg Thiamine HCl (Vitamin B-1 Tab*) 100 mg PO DAILY [facility] Last Admin: 06/25/19 08:28 Dose: 100 mg Vital Signs 06/24/19 06/24/19 06/24/19 15:15 19:20 20:00 Temperature 98.8 F 97.6 F Pulse Rate 85 87 Respiratory 18 20 18 Rate Blood Pressure 152/86 183/92 (mmHg) O2 Sat by Pulse 95 Oximetry 06/24/19 06/24/19 06/25/19 21:00 23:00 01:00 Temperature 98.9 F 97.5 F 98.1 F Pulse Rate 82 66 79 Respiratory 18 16 16 Rate Blood Pressure 153/78 165/80 147/80 (mmHg) O2 Sat by Pulse 97 97 96 Oximetry 06/25/19 06/25/19 06/25/19 03:00 05:00 07:51 Temperature 97.3 F 98.5 F 98.7 F Pulse Rate 83 80 75 Respiratory 17 16 20 Rate Blood Pressure 171/82 148/95 178/98 (mmHg) O2 Sat by Pulse 99 100 Oximetry 06/25/19 06/25/19 06/25/19 08:00 09:19 11:18 Temperature 97.8 F 99.4 F Pulse Rate 79 73 Respiratory 20 20 20 Rate Blood Pressure 144/75 173/83 (mmHg) O2 Sat by Pulse 98 100 Oximetry 06/25/19 13:33 Temperature 98.8 F Pulse Rate 73 Respiratory 20 Rate Blood Pressure 151/74 (mmHg) O2 Sat by Pulse 99 Oximetry Intake and Output Last 24 Hours 06/23/19 06/24/19 06/25/19 06/26/19 06:59 06:59 06:59 06:59 Intake Total 2856 1840 480 Output Total 0 0 Balance 2856 1840 480 Weight 118 lb 118 lb Intake: IV Fluids 2856 300 NS (0.9%) 856 300 Oral 0 1540 480 Output: Urine 0 0 Other: Estimated Void Medium Medium Small # Bowel Movements 0 Estimated Stool Amount Small # Voids 1 3 Oxygen Devices in Use Now: None Neurology Exam: General: Well nourished, well developed, and in no acute distress HEENT: Normocephelic/atraumatic, sclera anicteric, mucous membranes moist Neck: Supple Chest: Clear to auscultation bilaterally Cardiovascular: Regular rate and rhythm without murmurs, rubs, gallops Abdomen: Soft, non-tender/non-distended Extremities: No clubbing, cyanosis, or edema Neurological Findings: Awake, alert, and oriented to person, place, and time. Speech: fluent without dysarthria, repetition intact Cranial Nerve: PERRL, EOM intact, VFF, no nystagmus, face symmetric bilaterally , facial sensation intact, hearing intact to finger rub bilaterally, palate elevates symmetrically, tongue midline, SCM and Trapezius s/s. Motor: s/s throughout, proximal and distal extremities x4 tone/bulk normal Sensation: intact to LT/PP bilaterally upper and lower extremities Deep Tendon Reflex: 2+ symmetric in the upper/lower extremities, Babinski - down going Finger to nose, rapid alternating movements intact without tremor, no dysdiadochokinesia Gait: intact with good arm swing and stride Result Diagrams: 06/24/19 05:08 06/24/19 05:08 Additional Lab and Data: Lab Results 06/23/19 06/23/19 06/23/19 Range/Units 10:03 10:03 10:03 WBC 9.1 (3.5-10.8) 10^3/uL RBC 5.44 H (3.70-4.87) 10^6 /uL Hgb 14.4 (12.0-16.0) g/dL Hct 45 (35-47) % MCV 82 (80-97) fL MCH 27 (27-31) pg MCHC 32 (31-36) g/dL RDW 15 (10-15) % Plt Count 286 (150-450) 10^3/uL MPV 7.1 L (7.4-10.4) fL Neut % (Auto) 76.1 % Lymph % (Auto) 14.5 % [place] % (Auto) 7.1 % Eos % (Auto) 0.9 % Baso % (Auto) 1.4 % Absolute Neuts (auto) 6.9 (1.5-7.7) 10^3/ul Absolute Lymphs (auto) 1.3 (1.0-4.8) 10^3/ul Absolute Monos (auto) 0.6 (0-0.8) 10^3/ul Absolute Eos (auto) 0.1 (0-0.6) 10^3/ul Absolute Basos (auto) 0.1 (0-0.2) 10^3/ul Absolute Nucleated RBC 0.0 10^3/ul Nucleated RBC % 0.1 INR (Anticoag Therapy) 1.03 (0.82-1.09) Sodium 137 (135-145) mmol/L Potassium 4.0 (3.5-5.0) mmol/L Chloride 104 (101-111) mmol/L Carbon Dioxide 25 (22-32) mmol/L Anion Gap 8 (2-11) mmol/L BUN 17 (6-24) mg/dL Creatinine 1.07 H (0.51-0.95) mg/dL Est GFR ( Amer) 60.0 (>60) Est GFR (Non-Af Amer) 49.6 (>60) BUN/Creatinine Ratio 15.9 (8-20) Glucose 115 H (70-100) mg/dL Lactic Acid (0.5-2.0) mmol/L Calcium 9.6 (8.6-10.3) mg/dL Magnesium 2.1 (1.9-2.7) mg/dL Total Bilirubin 1.20 H (0.2-1.0) mg/dL AST 31 (13-39) U/L ALT 13 (7-52) U/L Alkaline Phosphatase 101 (34-104) U/L Ammonia (16-53) mcmol/L Total Creatine Kinase 568 H (10-223) U/L Troponin I 0.01 (<0.04) ng/mL Total Protein 7.2 (6.4-8.9) g/dL Albumin 4.4 (3.2-5.2) g/dL Globulin 2.8 (2-4) g/dL Albumin/Globulin Ratio 1.6 (1-3) Urine Color Urine Appearance Urine pH (5-9) Ur Specific [place] (1.010-1.030) Urine Protein (Negative) Urine Ketones (Negative) Urine Blood (Negative) Urine Nitrate (Negative) Urine Bilirubin (Negative) Urine Urobilinogen (Negative) Ur Leukocyte Esterase (Negative) Urine Glucose (Negative) Salicylates < 2.50 (<30) mg/dL Urine Opiates Screen (None Detect) Acetaminophen < 15 mcg/mL Ur Barbiturates Screen (None Detect) Ur Phencyclidine Scrn (None Detect) Ur Amphetamines Screen (None Detect) U Benzodiazepines Scrn (None Detect) Urine Cocaine Screen (None Detect) U Cannabinoids Screen (None Detect) Serum Alcohol < 10 (<10) mg/dL 06/23/19 06/23/19 06/23/19 Range/Units 10:03 10:03 11:57 WBC (3.5-10.8) 10^3/uL RBC (3.70-4.87) 10^6 /uL Hgb (12.0-16.0) g/dL Hct (35-47) % MCV (80-97) fL MCH (27-31) pg MCHC (31-36) g/dL RDW (10-15) % Plt Count (150-450) 10^3/uL MPV (7.4-10.4) fL Neut % (Auto) % Lymph % (Auto) % [place] % (Auto) % Eos % (Auto) % Baso % (Auto) % Absolute Neuts (auto) (1.5-7.7) 10^3/ul Absolute Lymphs (auto) (1.0-4.8) 10^3/ul Absolute Monos (auto) (0-0.8) 10^3/ul Absolute Eos (auto) (0-0.6) 10^3/ul Absolute Basos (auto) (0-0.2) 10^3/ul Absolute Nucleated RBC 10^3/ul Nucleated RBC % INR (Anticoag Therapy) (0.82-1.09) Sodium (135-145) mmol/L Potassium (3.5-5.0) mmol/L Chloride (101-111) mmol/L Carbon Dioxide (22-32) mmol/L Anion Gap (2-11) mmol/L BUN (6-24) mg/dL Creatinine (0.51-0.95) mg/dL Est GFR ( Amer) (>60) Est GFR (Non-Af Amer) (>60) BUN/Creatinine Ratio (8-20) Glucose (70-100) mg/dL Lactic Acid 1.3 (0.5-2.0) mmol/L Calcium (8.6-10.3) mg/dL Magnesium (1.9-2.7) mg/dL Total Bilirubin (0.2-1.0) mg/dL AST (13-39) U/L ALT (7-52) U/L Alkaline Phosphatase (34-104) U/L Ammonia 38 (16-53) mcmol/L Total Creatine Kinase (10-223) U/L Troponin I (<0.04) ng/mL Total Protein (6.4-8.9) g/dL Albumin (3.2-5.2) g/dL Globulin (2-4) g/dL Albumin/Globulin Ratio (1-3) Urine Color Yellow Urine Appearance Clear Urine pH 6.0 (5-9) Ur Specific [place] 1.013 (1.010-1.030) Urine Protein Negative (Negative) Urine Ketones Negative (Negative) Urine Blood Negative (Negative) Urine Nitrate Negative (Negative) Urine Bilirubin Negative (Negative) Urine Urobilinogen Negative (Negative) Ur Leukocyte Esterase Negative (Negative) Urine Glucose Negative (Negative) Salicylates (<30) mg/dL Urine Opiates Screen (None Detect) Acetaminophen mcg/mL Ur Barbiturates Screen (None Detect) Ur Phencyclidine Scrn (None Detect) Ur Amphetamines Screen (None Detect) U Benzodiazepines Scrn (None Detect) Urine Cocaine Screen (None Detect) U Cannabinoids Screen (None Detect) Serum Alcohol (<10) mg/dL 06/23/19 Range/Units 11:57 WBC (3.5-10.8) 10^3/uL RBC (3.70-4.87) 10^6 /uL Hgb (12.0-16.0) g/dL Hct (35-47) % MCV (80-97) fL MCH (27-31) pg MCHC (31-36) g/dL RDW (10-15) % Plt Count (150-450) 10^3/uL MPV (7.4-10.4) fL Neut % (Auto) % Lymph % (Auto) % [place] % (Auto) % Eos % (Auto) % Baso % (Auto) % Absolute Neuts (auto) (1.5-7.7) 10^3/ul Absolute Lymphs (auto) (1.0-4.8) 10^3/ul Absolute Monos (auto) (0-0.8) 10^3/ul Absolute Eos (auto) (0-0.6) 10^3/ul Absolute Basos (auto) (0-0.2) 10^3/ul Absolute Nucleated RBC 10^3/ul Nucleated RBC % INR (Anticoag Therapy) (0.82-1.09) Sodium (135-145) mmol/L Potassium (3.5-5.0) mmol/L Chloride (101-111) mmol/L Carbon Dioxide (22-32) mmol/L Anion Gap (2-11) mmol/L BUN (6-24) mg/dL Creatinine (0.51-0.95) mg/dL Est GFR ( Amer) (>60) Est GFR (Non-Af Amer) (>60) BUN/Creatinine Ratio (8-20) Glucose (70-100) mg/dL Lactic Acid (0.5-2.0) mmol/L Calcium (8.6-10.3) mg/dL Magnesium (1.9-2.7) mg/dL Total Bilirubin (0.2-1.0) mg/dL AST (13-39) U/L ALT (7-52) U/L Alkaline Phosphatase (34-104) U/L Ammonia (16-53) mcmol/L Total Creatine Kinase (10-223) U/L Troponin I (<0.04) ng/mL Total Protein (6.4-8.9) g/dL Albumin (3.2-5.2) g/dL Globulin (2-4) g/dL Albumin/Globulin Ratio (1-3) Urine Color Urine Appearance Urine pH (5-9) Ur Specific [place] (1.010-1.030) Urine Protein (Negative) Urine Ketones (Negative) Urine Blood (Negative) Urine Nitrate (Negative) Urine Bilirubin (Negative) Urine Urobilinogen (Negative) Ur Leukocyte Esterase (Negative) Urine Glucose (Negative) Salicylates (<30) mg/dL Urine Opiates Screen None detected (None Detect) Acetaminophen mcg/mL Ur Barbiturates Screen None detected (None Detect) Ur Phencyclidine Scrn None detected (None Detect) Ur Amphetamines Screen None detected (None Detect) U Benzodiazepines Scrn None detected (None Detect) Urine Cocaine Screen None detected (None Detect) U Cannabinoids Screen None detected (None Detect) Serum Alcohol (<10) mg/dL Microbiology and Other Data: Microbiology 06/24/19 00:30 Nasal Screen MRSA (PCR) - Final Nasal Mrsa Not Detected Assessment/Plan Ms. Hurley is a 79-year-old female with depression who has had multiple similar presentation in the past for falls and confusion, [place] [facility] [place]. She was found to have a slight facial droop on the left. An MRI brain showed no evidence for an acute stroke. 1. Isolated left facial droop in a patient who has advanced small vessel microvascular disease- She does not have a new stroke on MRI. This finding can be related to her extensive microvascular change. Continue Plavix therapy and good BP control (normotensive range). 2. 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 Discussed fall precautions. Encouraged her to always use a walker when ambulating. 3. Ventriculomegaly- most likely congenital with superimposed ex-vacou dilatation (atrophy of adjacent white matter). There is no significant change of the ventriculomegaly on MRI. She does not have any evidence of spasticity. 4. Coccyx pain- improving. No fracture on Xray. 5. Major depressive disorder- used to be on Lexapro. She is not on any antidepressant therapy. I recommend starting mirtazapine 15 mg nightly. This will improve her appetite and sleep. Side effects were discussed with the patient which include, and are not limited to weight gain, sedation, sleepiness , and worsening depression. 6. Bilateral ICA stenosis, severe (90%) on the left ICA- this is an incidental finding. Continue Plavix 75 mg daily and atorvastatin 40 mg nightly. She needs an urgent vascular surgery evaluation as an outpatient. I will sign off. Please contact us for any questions or concerns.
[2019-06-25] MEDS: Acetaminophen TAB* 325 MG PO PRN ×2 (15:54→19:36)
[2019-06-25] MEDS: Oxybutynin XL TAB* 5 MG PO SCH (16:16)
[2019-06-25] MEDS: Enoxaparin(*) 30 MG/0.3 ML SYR SUBCUT SCH (16:16)
[2019-06-25] MEDS: Atorvastatin* 40 MG TAB PO SCH (16:17)
[2019-06-25] MEDS: Potassium Chlor TAB* 20 MEQ TAB.ER PO SCH (20:40)
[2019-06-26 05:08] LABS: BUN/Creatinine Ratio 17.6 (8-20); Calcium 8.4 mg/dL (8.6-10.3); EGFR African American 91.8 (>60); EGFR Non-African American 75.9 (>60)
--- NOTE | 2019-06-26 07:21 | PN ---
Subjective Date of Service: 06/26/19 Interval History: HD 3 on 06/26 79 y/o F with H/O DVT, PE, HTN, HLD, Alcohol use disorder, Depression presented with dizziness and fall(twice). unable to follow command and left facial droop on exam. 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 MRI brain negative for any intracranial pathology; chronic changes No acute overnight events BP on higher side; increased amlodipine dose No complain; wants to go home Objective Active Medications: Acetaminophen (Tylenol Tab*) 650 mg PO Q4H PRN PRN Reason: MILD PAIN or TEMP > 100.4 Last Admin: 06/25/19 19:36 Dose: 650 mg Amlodipine Besylate (Norvasc Tab*) 10 mg PO DAILY [facility] Atorvastatin Calcium (Lipitor*) 40 mg PO 1700 [facility] Last Admin: 06/25/19 16:17 Dose: 40 mg Clopidogrel Bisulfate (Plavix Tab*) 75 mg PO QAM [facility] Last Admin: 06/25/19 08:28 Dose: 75 mg Enoxaparin Sodium (Lovenox(*)) 30 mg SUBCUT Q24H [facility] Last Admin: 06/25/19 16:16 Dose: Not Given Folic Acid (Folvite Tab*) 1 mg PO DAILY [facility] Last Admin: 06/25/19 08:28 Dose: 1 mg Sodium Chloride (Ns 0.9% 1000 Ml) 1,000 mls @ 75 mls/hr IV PER RATE [facility] Last Admin: 06/25/19 21:38 Dose: 75 mls/hr Lorazepam (Ativan Tab(*)) 0 - 6 mg PO .PER [facility] PROTOCOL [facility]; Protocol Losartan Potassium (Cozaar Tab*) 100 mg PO DAILY [facility] Last Admin: 06/25/19 08:28 Dose: 100 mg Miscellaneous (Ativan Pyxis Harman) 1 ea N/A .ATIVAN IV HARMAN PRN PRN Reason: PYXIS HARMAN Multivitamins/Minerals (Theragran/Minerals Tab*) 1 tab PO DAILY [facility] Last Admin: 06/25/19 08:28 Dose: 1 tab Ondansetron HCl (Zofran Inj*) 4 mg IV Q4H PRN PRN Reason: NAUSEA/VOMITING Oxybutynin Chloride (Ditropan Xl Tab*) 15 mg PO QPM [facility] Last Admin: 06/25/19 16:16 Dose: Not Given Potassium Chloride (Klor Con Er Tab*) 40 meq PO BID [facility] Last Admin: 06/25/19 20:40 Dose: 20 meq Ropinirole HCl (Requip Tab*) 1 mg PO DAILY [facility] Last Admin: 06/25/19 08:28 Dose: 1 mg Thiamine HCl (Vitamin B-1 Tab*) 100 mg PO DAILY [facility] Last Admin: 06/25/19 08:28 Dose: 100 mg Vital Signs - 8 hr 06/26/19 06/26/19 06/26/19 01:00 03:00 05:00 Temperature 98.0 F 98.6 F 98.4 F Pulse Rate 70 70 71 Respiratory 18 18 18 Rate Blood Pressure 175/80 150/75 170/78 (mmHg) O2 Sat by Pulse 99 99 99 Oximetry Oxygen Devices in Use Now: None Exam: Patient is lying on a bed with no acute distress. HEENT: Normocephalic, atraumatic Lungs: clear on ascultation Heart: Normal heart sound heard with no murmur Abdomen: Soft, nondistended and nontender. NOrmal BS heard Extremities: Abrasions on her b/l lower limb; no active bleeding Neuro: alert, conscious and oriented. There is asymmetry of nasolabial fold but no facial droop noted and tongue midline. Motor strength normal, sensation intact Result Diagrams: 06/24/19 05:08 06/26/19 15:07 Assess/Plan/Problems-Billing Assessment: 79 y/o F with H/O DVT, PE, HTN, HLD, Alcohol use disorder, Depression presented with dizziness and fall(tripped on walker). UNable to follow command and left facial droop on exam. No LOC, head injury, or seizures. 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 MRI negative for acute changes. Xr of sacrum normal. waiting to be PT recommendation on safe disposition of patient - Patient Problems (1) Facial droop Status: Acute Code(s): R29.810 - FACIAL WEAKNESS SNOMED Code(s): 42512965 Comment: Isolated left facial droop during presentation. Asymmetry of nasoolabial fold with normal motor strength. I ddnt notice any facial droop. Has h/o stroke but patient not sure about residual paralysis. MRi negative for acute changes Ct brain didnot show any acute intracranial pathology. ventriculomegaly seen which is unchanged from previous. chronic microvascular changes noted Head CTA shows 90% stenosis of juntion of proximal and mid segmetn of LCA. Neurology following; Plan is to discharge her; awaitng PT comment on safe disposition (2) Fall Status: Acute Comment: Awaiting for PT/OT comment on disposition of patient. (3) Hypertensive urgency Status: Acute Code(s): I10 - ESSENTIAL (PRIMARY) HYPERTENSION SNOMED Code(s) : 585782987 Comment: presented with bp of 183/130. Got iv labetalol now on losartan and amlodipine (4) Urinary incontinence Status: Acute Code(s): R32 - UNSPECIFIED URINARY INCONTINENCE SNOMED Code(s) : 632164733 Comment: On oxybutinin (5) Alcohol use disorder Status: Acute Code(s): NJN2786 - SNOMED Code(s): 6556252 Comment: gives hx of consuming 1 drink per day at night. On WAM protocol; not scoring (6) DVT prophylaxis Status: Acute Code(s): QRA1386 - SNOMED Code(s): 227801464 Comment: on lovenox (7) Full code status Status: Acute Code(s): Z78.9 - OTHER SPECIFIED HEALTH STATUS SNOMED Code(s) : 365565089 Status and Disposition: Inpatient; Neurology following can be dc today; waiting for PT/OT comment on disposition of patient; she lives alone and had frequent falls in past Attending: Jessy Al Attestation Documenting Resident: Mike Myers Supervising Physician: Jessy Al Attestation: This service has been performed in part by a resident under the direction of a teaching physician.I, Jessy Al, performed the service, or was physically present during the critical, or harman portions of the service, furnished by the resident. I participated in the management of the patient.
[2019-06-26 07:37] LABS: Magnesium 1.8 mg/dL (1.9-2.7)
[2019-06-26] MEDS ORDERED: amLODIPine TAB* 5 MG PO SCH (09:00)
[2019-06-26] MEDS: Folic Acid TAB* 1 MG PO SCH (09:48)
[2019-06-26] MEDS: Multivitamins/Minerals TAB PO SCH (09:50)
[2019-06-26] MEDS: Clopidogrel TAB* 75 MG PO SCH (09:50)
[2019-06-26] MEDS: Potassium Chlor TAB* 20 MEQ TAB.ER PO SCH (09:51)
[2019-06-26] MEDS: Losartan TAB* 25 MG PO SCH (09:51)
[2019-06-26] MEDS: Thiamine TAB* 100 MG TAB PO SCH (09:52)
[2019-06-26] MEDS ORDERED: Magnesium Sulfate 2 GM IV* 2 GM/50 ML BAG IVPB ONE (10:40)
[2019-06-26] MEDS: rOPINIRole TAB* 1 MG PO SCH (11:11)
[2019-06-26] MEDS ORDERED: Metoprolol Tartrate TAB* 25 MG PO ONE (13:51)
[2019-06-26 15:30] LABS: BUN/Creatinine Ratio 16.7 (8-20); Calcium 8.9 mg/dL (8.6-10.3); EGFR African American 94.8 (>60); EGFR Non-African American 78.3 (>60); Magnesium 2.5 mg/dL (1.9-2.7); Potassium 3.5 mmol/L (3.5-5.0)
[2019-06-26 16:14] VITALS: BP 147/90
[2019-06-26] MEDS: Atorvastatin* 40 MG TAB PO SCH (16:38)
[2019-06-26] MEDS: Enoxaparin(*) 30 MG/0.3 ML SYR SUBCUT SCH (16:47)
--- NOTE | 2019-06-26 20:22 | DS ---
CC: Dr. Buster Moore; Dr. Camacho * DISCHARGE SUMMARY: DATE OF ADMISSION: 06/23/19 DATE OF DISCHARGE: 06/26/19 PRIMARY CARE PHYSICIAN: Dr. Buster Moore. PRIMARY DIAGNOSES: 1. Mechanical fall. 2. Chronic ventriculomegaly. 3. Hypertension. SECONDARY DIAGNOSES: 1. Asthma. 2. Lumbar stenosis. 3. Major depressive disorder. 4. Alcohol use disorder. 5. Bilateral ICA stenosis. CONSULTS: Dr. Camacho of Neurology. DISCHARGE MEDICATIONS: 1. Metoprolol succinate 25 mg nightly. 2. Atorvastatin 40 mg nightly. 3. Potassium chloride 20 mEq daily. 4. Amlodipine 10 mg daily. 5. Trazodone 150 mg at night. 6. Losartan 100 mg nightly. 7. Clopidogrel 75 mg daily. 8. Ropinirole 1 to 3 mg at bedtime as needed for restless legs syndrome. 9. Oxybutynin XL 15 mg nightly. HISTORY OF PRESENT ILLNESS: Ms. Hurley is a 79-year-old woman with major depressive disorder with multiple psychiatric admissions, alcohol use disorder, hypertension, who is presenting to the emergency room for a mechanical fall. On initial interview, she was unable to follow commands and had limited ability to answer questions, so this HPI was brief. Per Neurology consult, she had had multiple falls over the last couple of days and struck her head and was experiencing neck pain. Again on that initial interview, she was confused and disoriented, but has been admitted for similar symptoms in the past. Previously evaluated by Neurology in March 2018 with confusion, disorientation and falls with a head CT showing diffuse atrophy. At that time, she also had elevated blood pressure as well as was felt to be acute onset of hypertensive encephalopathy. The patient reports significant history of chronic alcohol use , suicidal ideation, history of TIAs with left-sided neglect, history of DVT and PE. HOSPITAL COURSE: In the emergency room, head CT was negative with chest x-ray suggestive of obstructive lung disease. Hip and pelvis x-ray were without evidence of fractures and EKG was in sinus rhythm. She was notably hypertensive in the emergency room with blood pressures 200s/100s and the patient reported a headache without visual changes. She was given labetalol and hydralazine IV and her blood pressure responded down to the 170s. The hospitalist service was consulted to evaluate the patient for admission. The patient did have a left- sided facial droop noted in the emergency room. Head CTA was performed, which showed 50% occlusion of the left carotid bulb and ostium of the left ICA and 90 % stenosis at the junction of the proximal and mid segments of the left internal carotid artery, which is a change from the previous CTA in 2014. After admission to the medical floors, the patient had resolution in her left facial droop. The patient's mental status improved with subsequent blood pressure control. 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 When mental status improved, patient reported that she fell after tripping over her walker and that she was conscious the whole time. She denied weakness or unsteadiness with her walker. She was seen and evaluated by Physical Therapy multiple times, who recommended home care to assess her home situation as well as a home PT referral. On day of discharge, she was looking forward to returning home, reporting that she has good home support. She states that she had an aid and visiting nurse before, but these were referred again on discharge as well as home PT. PERTINENT STUDIES AND LABS: CBC unremarkable. Hypokalemia throughout admission with potassium normal by day of discharge. The patient has a history of hypokalemia for several years. B12 of 596. Folate 9.36. LDL 77. UA clear and U-tox negative. Head CTA with 50% stenosis at the proximal right ICA and left carotid bulb and ostium of the left ICA of approximately 90% stenosis at the junction of the right proximal and mid segments of the left ICA. Unremarkable basilar artery and cerebellar artery origins. No visualized intracranial aneurysm, but severely limited exam due to motion artifact without gross evidence for intracranial large vessel arterial occlusion or stenosis. C-Spine CT: no CT evidence for traumatic cervical spine injury, no significant change in magnitude of degenerative spondylosis and posterior element osteoarthritis compared with 05/15/19 exam. Brain MRI with no MR evidence of acute infarct. T2/FLAIR hyperintensities of the periventricular and deep subcortical white matter most likely secondary to chronic small vessel ischemic change. Ventricles with chronic marked prominence of the ventricles and sulci likely attributed to parenchymal volume loss. Sacrum, coccyx 2 views x-ray with osteopenia, degenerative disk disease and osteoarthritis without acute osseous injury. DISCHARGE PLAN: The patient is to follow up closely with her primary care physician for ongoing chronic disease management. She was referred to visiting nurse service for home support such as physical therapy, home assessment, and home health aid. Her blood pressure medications were adjusted and the patient was given amlodipine 10 mg and metoprolol succinate 25 mg and she was restarted on prior potassium supplement which she states she has not taken in years. She was also initiated on atorvastatin, given her chronic microvascular disease and possible history of TIAs. She was educated each day on fall prevention. She had no recurrence of confusion or falls throughout hospitalization and was able to teach back plan to care team. She should continue to have her potassium monitored as well as her blood pressure. She was given return precautions, which include but are not limited to recurrence of falls, focal weakness or slurred speech. She is to resume a healthy diet, low in processed foods, and activity as tolerated. DISPOSITION: To home. CONDITION: Improved. TIME SPENT: Approximately 60 minutes was spent on discharge of this patient, more than half of which was spent with care coordination at bedside for interview and exam. [id number]/[facility] #: [id number] HEATH
[2019-06-26] MEDS ORDERED: rOPINIRole TAB* 1 MG PO SCH (21:00)
== END 2019-06-26 18:10 | disposition home health service (06) | DRG 74 ==
LOC: ED 09:30 → MEDTELE 15:31
PROVIDERS: ADMIT Internal Medicine; ATTEND Internal Medicine
DX: G60.9 Hereditary and idiopathic neuropathy, unspecified (principal); G93.40 Encephalopathy, unspecified; R45.851 Suicidal ideations; I10 Essential (primary) hypertension; E78.5 Hyperlipidemia, unspecified; F32.9 Major depressive disorder, single episode, unspecified; F10.10 Alcohol abuse, uncomplicated; R29.810 Facial weakness; G93.89 Other specified disorders of brain; I16.0 Hypertensive urgency; E87.6 Hypokalemia; R32 Unspecified urinary incontinence; R90.82 White matter disease, unspecified; I65.23 Occlusion and stenosis of bilateral carotid arteries; M48.061 Spinal stenosis, lumbar region without neurogenic claudication; M25.551 Pain in right hip; G25.81 Restless legs syndrome; M19.90 Unspecified osteoarthritis, unspecified site; M85.80 Other specified disorders of bone density and structure, unspecified site; M51.36 Other intervertebral disc degeneration, lumbar region; W18.30XA Fall on same level, unspecified, initial encounter; Z91.81 History of falling; Y92.009 Unspecified place in unspecified non-institutional (private) residence as the place of occurrence of the external cause; Z86.73 Personal history of transient ischemic attack (TIA), and cerebral infarction without residual deficits; Z86.711 Personal history of pulmonary embolism; Z86.718 Personal history of other venous thrombosis and embolism; Z79.02 Long term (current) use of antithrombotics/antiplatelets; Z79.899 Other long term (current) drug therapy; Z81.1 Family history of alcohol abuse and dependence; Z81.8 Family history of other mental and behavioral disorders; Z87.891 Personal history of nicotine dependence; Z88.1 Allergy status to other antibiotic agents; Z88.0 Allergy status to penicillin; Z88.8 Allergy status to other drugs, medicaments and biological substances; Z91.048 Other nonmedicinal substance allergy status; Z80.0 Family history of malignant neoplasm of digestive organs; Z82.49 Family history of ischemic heart disease and other diseases of the circulatory system
CPT/HCPCS: 36415; 70450; 70496; 70498; 70551; 71045; 72125; 72220; 74018; 80048; 80053; 80061; 80307; 80320; 80329; 81003; 82140; 82542; 82550; 82607; 82746; 83605; 83735; 84207; 84425; 84484; 85025; 85610; 87641; 93005; 93306; 99284; A9270-GY; G0480; G8978-GP-CK; G8979-GP-CI; G8987-GO-CJ; G8988-GO-CI; J0360; J1650; J2060; J3411; J3475; Q9967

== ENCOUNTER 2020-07-03 16:52 | Inpatient (IN) ==
[2020-07-03 18:09] LABS: Hematocrit 39 % (35-47); Hemoglobin 12.3 g/dL (12.0-16.0); Mean Corpuscular HGB Conc 32 g/dL (31-36); Mean Corpuscular Hemoglobin 23 pg (27-31); Mean Corpuscular Volume 74 fL (80-97); Mean Platelet Volume 7.6 fL (7.4-10.4); Platelet Count 321 10^3/uL (150-450); Red Blood Count 5.28 10^6 /uL (3.70-4.87); Red Cell Distribution Width 17 % (10-15); White Blood Count 8.8 10^3/uL (3.5-10.8)
[2020-07-03 18:24] LABS: ALT 12 U/L (7-52); AST 23 U/L (13-39); Albumin 4.4 g/dL (3.2-5.2); Albumin/Globulin Ratio 1.5 (1-3); Alkaline Phosphatase 76 U/L (34-104); Anion Gap 12 mmol/L (2-11); BUN/Creatinine Ratio 27.1 (8-20); Blood Urea Nitrogen 32 mg/dL (6-24); CO2 Carbon Dioxide 25 mmol/L (22-32); Calcium 9.4 mg/dL (8.6-10.3); Chloride 102 mmol/L (101-111); EGFR African American 53.5 (>60); EGFR Non-African American 44.2 (>60); Glucose 172 mg/dL (70-100); Magnesium 2.2 mg/dL (1.9-2.7); Potassium 3.2 mmol/L (3.5-5.0); Sodium 139 mmol/L (135-145); Total Protein 7.4 g/dL (6.4-8.9)
[2020-07-03 18:27] LABS: Troponin I 0.05 ng/mL (<0.03)
[2020-07-03 18:37] LABS: ABS Basophils 0.1 10^3/ul (0-0.2); ABS Eosinophils 0.1 10^3/ul (0-0.6); ABS Lymphocytes 2.2 10^3/ul (1.0-4.8); ABS Neutrophils 5.4 10^3/ul (1.5-7.7); Eosinophil % 0.9 %; Lymphocyte % 24.9 %; Nucleated Red Blood Cells % 0.1
[2020-07-03 18:45] LABS: TSH Ultra Thyroid Stim Horm 2.63 mcIU/mL (0.34-5.60)
[2020-07-03] MEDS ORDERED: Potassium Chlor 20 meq TAB.ER PO ONE (18:45)
[2020-07-03] MEDS ORDERED: NS 0.9% 1000 ml BAG 1,000 ML IV ONE (18:45)
[2020-07-03] MEDS ORDERED: Senna TAB 8.6 mg TAB PO PRN (19:51)
[2020-07-03] MEDS ORDERED: Albuterol 2.5mg/3 ml (0.083%) NEB.SOLN INH PRN (19:51)
[2020-07-03] MEDS ORDERED: Ondansetron 4 mg VIAL 2 MG/ML 2 ml VIAL IV PRN (19:51)
[2020-07-03] MEDS ORDERED: Thiamine 100 MG/ML 2 ml VIAL (200 mg) IM ONE (20:23)
[2020-07-03 20:29] LABS: % Iron Saturation 4 % (15-55); Iron 22 ug/dL (50-212); Total Iron Binding Capacity 517 mcg/dL (250-450); Transferrin 369 mg/dL (203-362); Unsaturated Iron Binding < 502 ug/dL
[2020-07-03 20:48] LABS: Alcohol, S < 10 mg/dL (<10)
[2020-07-03 20:51] LABS: Ferritin 22.6 ng/mL (11-307)
[2020-07-03 20:54] LABS: Folate 8.43 ng/mL (>3.99)
[2020-07-03 20:56] LABS: Vitamin B12 433 pg/mL (180-914)
[2020-07-03 21:52] LABS: Troponin I 0.03 ng/mL (<0.03)
[2020-07-03] MEDS: Iron Sucrose 200 MG in NS 0.9% 100 ml BAG 100 ML IVPB SCH (23:00)
[2020-07-03] MEDS: Enoxaparin 30 MG/0.3 ML SYR SUBCUT SCH (23:07)
[2020-07-04] MEDS ORDERED: hydrALAZINE 20 mg/ml 1 ML Vial IV IV SLOW PU ONE (03:03)
[2020-07-04 06:33] LABS: ABS Basophils 0.1 10^3/ul (0-0.2); ABS Eosinophils 0.1 10^3/ul (0-0.6); ABS Lymphocytes 2.3 10^3/ul (1.0-4.8); ABS Monocytes 0.9 10^3/ul (0-0.8); ABS Neutrophils 6.4 10^3/ul (1.5-7.7); Eosinophil % 0.6 %; Hematocrit 34 % (35-47); Hemoglobin 11.3 g/dL (12.0-16.0); Lymphocyte % 23.2 %; Mean Corpuscular HGB Conc 33 g/dL (31-36); Mean Corpuscular Hemoglobin 24 pg (27-31); Mean Corpuscular Volume 74 fL (80-97); Mean Platelet Volume 7.9 fL (7.4-10.4); Nucleated Red Blood Cells % 0.1; Platelet Count 263 10^3/uL (150-450); Red Blood Count 4.66 10^6 /uL (3.70-4.87); Red Cell Distribution Width 17 % (10-15); White Blood Count 9.8 10^3/uL (3.5-10.8)
[2020-07-04 06:53] LABS: BUN/Creatinine Ratio 29.6 (8-20); Calcium 8.6 mg/dL (8.6-10.3); EGFR African American 82.5 (>60); EGFR Non-African American 68.2 (>60); Potassium 3.2 mmol/L (3.5-5.0)
[2020-07-04 08:02] LABS: Total Bilirubin 1.5 mg/dL (0.2-1.0)
[2020-07-04] MEDS: Multivitamins/Minerals TAB PO SCH (09:20)
[2020-07-04] MEDS: Iron Sucrose 200 MG in NS 0.9% 100 ml BAG 100 ML IVPB SCH (09:20)
[2020-07-04] MEDS: KCL 20 MEQ/100 ML IVPREMIX 20 MEQ/100 ML BAG IV SCH ×2 (10:12→12:14)
[2020-07-04 11:04] LABS: Urine Appearance Cloudy; Urine Bilirubin Negative (Negative); Urine Blood Negative (Negative); Urine Color Amber; Urine Glucose Negative (Negative); Urine Ketones Trace (Negative); Urine Nitrite Negative (Negative); Urine Protein 1+(30 mg/dL) (Negative); Urine Specific Gravity 1.015 (1.010-1.030); Urine Urobilinogen Negative (Negative)
[2020-07-04 11:09] LABS: Urine Bacteria Absent (Absent); Urine Red Blood Cell Trace(0-2/hpf) (Absent); Urine White Blood Cell 2+(11-20/hpf) (Absent)
[2020-07-04] MEDS: Enoxaparin 30 MG/0.3 ML SYR SUBCUT SCH (20:38)
[2020-07-05] MEDS: Iron Sucrose 200 MG in NS 0.9% 100 ml BAG 100 ML IVPB SCH (09:40)
[2020-07-05] MEDS: Multivitamins/Minerals TAB PO SCH (09:53)
[2020-07-05] MEDS: Lidocaine PATCH 5% PATCH TRANSDERM SCH (09:56)
[2020-07-05] MEDS: Sulfamethox/Trimethoprim DS TAB 800/160 mg PO SCH (13:00)
[2020-07-05] MEDS: Thiamine 100 MG/ML 2 ml VIAL 500 MG in NS 0.9% 250 ml 250 ML IV SCH ×2 (14:10→21:00)
[2020-07-05] MEDS: Enoxaparin 30 MG/0.3 ML SYR SUBCUT SCH (21:00)
[2020-07-06] MEDS: Lidocaine Patch REMOVE PATCH PATCH OFF SCH (02:10)
[2020-07-06] MEDS: Sulfamethox/Trimethoprim DS TAB 800/160 mg PO SCH ×2 (02:10→08:00)
[2020-07-06 07:07] LABS: ABS Basophils 0.1 10^3/ul (0-0.2); ABS Eosinophils 0.3 10^3/ul (0-0.6); ABS Lymphocytes 1.3 10^3/ul (1.0-4.8); ABS Monocytes 0.8 10^3/ul (0-0.8); ABS Neutrophils 5.8 10^3/ul (1.5-7.7); Eosinophil % 3.3 %; Hematocrit 34 % (35-47); Lymphocyte % 16.2 %; Mean Corpuscular HGB Conc 32 g/dL (31-36); Mean Corpuscular Hemoglobin 24 pg (27-31); Mean Corpuscular Volume 75 fL (80-97); Mean Platelet Volume 7.5 fL (7.4-10.4); Nucleated Red Blood Cells % 0.3; Platelet Count 277 10^3/uL (150-450); Red Blood Count 4.55 10^6 /uL (3.70-4.87); Red Cell Distribution Width 17 % (10-15); White Blood Count 8.3 10^3/uL (3.5-10.8)
[2020-07-06 07:28] LABS: BUN/Creatinine Ratio 19.6 (8-20); Calcium 8.7 mg/dL (8.6-10.3); EGFR African American 71.3 (>60); EGFR Non-African American 58.9 (>60); Potassium 3.1 mmol/L (3.5-5.0)
[2020-07-06] MEDS: Multivitamins/Minerals TAB PO SCH (08:04)
[2020-07-06] MEDS: Lidocaine PATCH 5% PATCH TRANSDERM SCH (08:08)
[2020-07-06] MEDS: Thiamine 100 MG/ML 2 ml VIAL 500 MG in NS 0.9% 250 ml 250 ML IV SCH ×2 (08:08→14:39)
[2020-07-06 08:59] LABS: Magnesium 2.1 mg/dL (1.9-2.7)
[2020-07-06] MEDS ORDERED: Potassium Chlor 20 meq TAB.ER PO ONE (10:07)
[2020-07-06] MEDS: Iron Sucrose 200 MG in NS 0.9% 100 ml BAG 100 ML IVPB SCH (10:46)
[2020-07-06] MEDS ORDERED: LORazepam 2 mg VIAL 1 ml IV PUSH ONE (11:39)
[2020-07-06] MEDS ORDERED: Lorazepam PYXIS KEY PRN (11:39)
[2020-07-06] MEDS: Haloperidol 5 mg/ml SDV IV/IM 5 MG/ML AMP IM ONE ×2 (19:52→22:57)
[2020-07-06] MEDS ORDERED: Haloperidol 5 mg/ml SDV IV/IM 5 MG/ML AMP IM ONE (22:00)
[2020-07-07] MEDS: Enoxaparin 30 MG/0.3 ML SYR SUBCUT SCH ×2 (00:04→19:30)
[2020-07-07] MEDS: Lidocaine Patch REMOVE PATCH PATCH OFF SCH ×2 (00:06→19:31)
[2020-07-07] MEDS: Thiamine 100 MG/ML 2 ml VIAL 500 MG in NS 0.9% 250 ml 250 ML IV SCH ×2 (00:06→10:30)
[2020-07-07] MEDS: Sulfamethox/Trimethoprim DS TAB 800/160 mg PO SCH (00:06)
[2020-07-07 07:05] LABS: BUN/Creatinine Ratio 15.1 (8-20); EGFR African American 93.1 (>60); EGFR Non-African American 76.9 (>60); Potassium 3.3 mmol/L (3.5-5.0)
[2020-07-07] MEDS: Multivitamins/Minerals TAB PO SCH (08:27)
[2020-07-07] MEDS: Lidocaine PATCH 5% PATCH TRANSDERM SCH (08:27)
[2020-07-07] MEDS: Iron Sucrose 200 MG in NS 0.9% 100 ml BAG 100 ML IVPB SCH (09:32)
[2020-07-07] MEDS: cefTRIAXone 1 gm/50 mL NS BAG 1 GM/50 ML BAG IVPB SCH (09:58)
[2020-07-07] MEDS ORDERED: Haloperidol 5 mg/ml SDV IV/IM 5 MG/ML AMP IV SLOW PU PRN ×2 (11:23→11:25)
[2020-07-07] MEDS: Haloperidol 5 mg/ml SDV IV/IM 5 MG/ML AMP IV SLOW PU SCH (19:31)
[2020-07-08 07:42] LABS: CO2 Carbon Dioxide 19 mmol/L (22-32); Calcium 8.5 mg/dL (8.6-10.3); Sodium 141 mmol/L (135-145)
[2020-07-08 07:48] LABS: BUN/Creatinine Ratio 20.3 (8-20); Blood Urea Nitrogen 16 mg/dL (6-24); EGFR African American 84.9 (>60); EGFR Non-African American 70.2 (>60); Glucose 79 mg/dL (70-100)
[2020-07-08 07:53] LABS: Anion Gap 10 mmol/L (2-11); Chloride 112 mmol/L (101-111)
[2020-07-08] MEDS: cefTRIAXone 1 gm/50 mL NS BAG 1 GM/50 ML BAG IVPB SCH (08:46)
[2020-07-08] MEDS: Multivitamins/Minerals TAB PO SCH (08:47)
[2020-07-08] MEDS: Lidocaine PATCH 5% PATCH TRANSDERM SCH (08:47)
[2020-07-08] MEDS: Haloperidol 5 mg/ml SDV IV/IM 5 MG/ML AMP IV SLOW PU SCH (09:45)
[2020-07-08] MEDS ORDERED: Potassium Chlor 10 meq TAB PO ONE (12:45)
[2020-07-08] MEDS: Lidocaine Patch REMOVE PATCH PATCH OFF SCH (20:32)
[2020-07-08] MEDS: Enoxaparin 30 MG/0.3 ML SYR SUBCUT SCH (20:32)
[2020-07-08 20:33] LABS: BUN/Creatinine Ratio 22.1 (8-20); Calcium 8.5 mg/dL (8.6-10.3); EGFR African American 61.9 (>60); EGFR Non-African American 51.1 (>60); Potassium 3.8 mmol/L (3.5-5.0)
[2020-07-09] MEDS: Lidocaine PATCH 5% PATCH TRANSDERM SCH (08:00)
[2020-07-09] MEDS: Multivitamins/Minerals TAB PO SCH (08:00)
[2020-07-09] MEDS: cefTRIAXone 1 gm/50 mL NS BAG 1 GM/50 ML BAG IVPB SCH (08:02)
[2020-07-09 08:11] VITALS: BP 133/82
== END 2020-07-09 11:55 | DRG 65 ==
LOC: ED 16:52 → MED 19:51 → MEDTELE 07-06 18:46
PROVIDERS: ADMIT Hospitalist; ATTEND Internal Medicine

== ENCOUNTER 2021-05-12 08:37 | Inpatient (IN) ==
[2021-05-12] MEDS ORDERED: NS 0.9% 1000 ml BAG 1,000 ML IV ONE (09:11)
[2021-05-12] MEDS ORDERED: Clindamycin 300 MG/D5W BAG 300 MG/50 ML BAG IV ONE (09:19)
[2021-05-12] MEDS ORDERED: Ondansetron 4 mg VIAL 2 MG/ML 2 ml VIAL IV ONE (09:31)
[2021-05-12 09:41] LABS: ABS Basophils 0.1 10^3/ul (0-0.2); ABS Eosinophils 0.1 10^3/ul (0-0.6); ABS Lymphocytes 0.8 10^3/ul (1.0-4.8); ABS Monocytes 0.8 10^3/ul (0-0.8); ABS Neutrophils 5.1 10^3/ul (1.5-7.7); Eosinophil % 0.9 %; Hematocrit 44 % (35-47); Hemoglobin 15.3 g/dL (12.0-16.0); Lymphocyte % 11.5 %; Mean Corpuscular HGB Conc 35 g/dL (31-36); Mean Corpuscular Hemoglobin 30 pg (27-31); Mean Corpuscular Volume 87 fL (80-97); Mean Platelet Volume 7.1 fL (7.4-10.4); Platelet Count 247 10^3/uL (150-450); Red Blood Count 5.07 10^6 /uL (3.70-4.87); Red Cell Distribution Width 14 % (10-15); White Blood Count 6.8 10^3/uL (3.5-10.8)
[2021-05-12 09:59] LABS: Troponin I 0.01 ng/mL (<0.03)
[2021-05-12 10:00] LABS: Albumin 4.5 g/dL (3.2-5.2); Albumin/Globulin Ratio 1.6 (1-3); Calcium 8.9 mg/dL (8.6-10.3); EGFR Non-African American 59.5 (>60); Globulin 2.9 g/dL (2-4); Magnesium 1.9 mg/dL (1.9-2.7); Potassium 3.6 mmol/L (3.5-5.0); Total Bilirubin 1.4 mg/dL (0.2-1.0); Total Protein 7.4 g/dL (6.4-8.9)
[2021-05-12 10:39] LABS: Urine Appearance Clear; Urine Bilirubin Negative (Negative); Urine Blood Negative (Negative); Urine Color Yellow; Urine Glucose Negative (Negative); Urine Ketones Negative (Negative); Urine Nitrite Negative (Negative); Urine Protein Negative (Negative); Urine Specific Gravity 1.009 (1.002-1.030); Urine Urobilinogen Negative (Negative)
[2021-05-12 11:41] LABS: C Reactive Protein 2.36 mg/L (<8.01)
[2021-05-12] MEDS: Clindamycin 600 MG/D5W BAG 600 MG/50 ML BAG IV SCH (17:13)
[2021-05-12] MEDS: Enoxaparin 40 MG/0.4 ML SYR SUBCUT SCH (17:15)
[2021-05-13] MEDS: Clindamycin 600 MG/D5W BAG 600 MG/50 ML BAG IV SCH ×2 (01:47→10:49)
[2021-05-13 05:32] LABS: ABS Basophils 0.1 10^3/ul (0-0.2); ABS Eosinophils 0.1 10^3/ul (0-0.6); ABS Lymphocytes 0.9 10^3/ul (1.0-4.8); ABS Monocytes 0.9 10^3/ul (0-0.8); ABS Neutrophils 2.8 10^3/ul (1.5-7.7); Eosinophil % 1.1 %; Hematocrit 41 % (35-47); Hemoglobin 14.3 g/dL (12.0-16.0); Mean Corpuscular HGB Conc 34 g/dL (31-36); Mean Corpuscular Hemoglobin 30 pg (27-31); Mean Corpuscular Volume 87 fL (80-97); Platelet Count 197 10^3/uL (150-450); Red Blood Count 4.78 10^6 /uL (3.70-4.87); Red Cell Distribution Width 14 % (10-15); White Blood Count 4.7 10^3/uL (3.5-10.8)
[2021-05-13 05:46] LABS: Calcium 8.2 mg/dL (8.6-10.3); EGFR African American 78.9 (>60); EGFR Non-African American 65.2 (>60); Potassium 2.8 mmol/L (3.5-5.0)
[2021-05-13] MEDS ORDERED: Potassium Chlor 20 meq TAB.ER PO ONE (07:30)
[2021-05-13] MEDS: KCL 20 MEQ/100 ML IVPREMIX 20 MEQ/100 ML BAG IV SCH ×2 (07:57→12:03)
[2021-05-13] MEDS: Potassium Chlor 20 meq TAB.ER PO SCH (07:57)
[2021-05-13] MEDS: Multivitamins/Minerals TAB PO SCH (07:57)
[2021-05-13 08:28] LABS: Albumin 3.9 g/dL (3.2-5.2); Albumin/Globulin Ratio 1.5 (1-3); Direct Bilirubin 0.3 mg/dL (0.03-0.18); Globulin 2.6 g/dL (2-4); Indirect Bilirubin 1.1 mg/dL (0.3-1.0); Total Bilirubin 1.4 mg/dL (0.2-1.0); Total Protein 6.5 g/dL (6.4-8.9)
[2021-05-13] MEDS ORDERED: Acyclovir IV 500 MG/10 ML 100 ML VIAL (500 MG) IVPB SCH (11:00)
[2021-05-13] MEDS: Acyclovir IV 500 MG in NS 0.9% 100 ml BAG 100 ML IVPB SCH ×2 (11:52→23:15)
[2021-05-13] MEDS ORDERED: Al Hydrox/Mg Hydrox/Simet LIQ 30 ML UDC PO PRN (12:19)
[2021-05-13] MEDS: Enoxaparin 40 MG/0.4 ML SYR SUBCUT SCH (17:05)
[2021-05-13] MEDS: Ondansetron ODT 4 mg TAB 4 MG TAB SL PRN (17:46)
[2021-05-14] MEDS: Ondansetron ODT 4 mg TAB 4 MG TAB SL PRN (08:14)
[2021-05-14] MEDS: Multivitamins/Minerals TAB PO SCH (08:15)
[2021-05-14] MEDS: Potassium Chlor 20 meq TAB.ER PO SCH (08:15)
[2021-05-14] MEDS: Acyclovir IV 500 MG in NS 0.9% 100 ml BAG 100 ML IVPB SCH (11:36)
[2021-05-14 12:46] VITALS: BP 125/74
== END 2021-05-14 14:00 | disposition home or self-care (01) | DRG 74 ==
LOC: ED 08:37 → MED 08:37
PROVIDERS: ADMIT Internal Medicine; ATTEND Internal Medicine

== ENCOUNTER 2023-12-29 22:06 | Inpatient (IN) ==
[2023-12-30] MEDS: Morphine 4 MG/ML VIAL (1 ml) IV ONE (00:38)
[2023-12-30 01:01] LABS: ABS Basophils 0.1 10^3/uL (0.0-0.1); ABS Lymphocytes 0.9 10^3/uL (1.0-4.8); ABS Monocytes 0.8 10^3/uL (0.0-0.9); ABS Neutrophils 14.4 10^3/uL (1.5-7.6); ABS Nucleated RBC 0.02 10^3/ul; Eosinophil % 0.3 %; Hematocrit 42.4 % (35-45); Hemoglobin 14.4 g/dL (11.5-14.3); Lymphocyte % 5.6 %; Mean Corpuscular Hemoglobin 28.5 pg (27-33); Mean Corpuscular Volume 83.8 fL (80-97); Mean Platelet Volume 7.6 fL (7.5-11.2); Nucleated Red Blood Cells % 0.1 %/100WBC (0.0-0.8); Platelet Count 243 10^3/uL (150-450); Red Blood Count 5.06 10^6/uL (3.63-4.92); Red Cell Distribution Width 15.4 % (12-17); White Blood Count 16.2 10^3/uL (3.8-11.8)
[2023-12-30] MEDS ORDERED: Morphine 2 MG/ML SYRINGE IV PRN (01:05)
[2023-12-30 02:50] LABS: ALT 18 U/L (7-52); Albumin 4.3 g/dL (3.2-5.2); Albumin/Globulin Ratio 1.4 (1-3); Alkaline Phosphatase 111 U/L (35-149); Anion Gap 10 mmol/L (2-16); Blood Urea Nitrogen 20 mg/dL (6-24); CO2 Carbon Dioxide 21 mmol/L (22-32); Calcium 9.1 mg/dL (8.6-10.3); Chloride 103 mmol/L (101-111); Globulin 3.1 g/dL (2-4); Glucose 131 mg/dL (70-100); Sodium 134 mmol/L (135-145); Total Bilirubin 0.7 mg/dL (0.2-1.0); Total Protein 7.4 g/dL (6.4-8.9); eGFR CKD-EPI 63.8 (>60)
[2023-12-30 02:58] LABS: C Reactive Protein 1.11 mg/L (<8.01)
[2023-12-30] MEDS ORDERED: Albuterol HFA INHALER 8 gm MDI INH PRN (03:09)
[2023-12-30 03:52] LABS: Erythrocyte Sed Rate 4 mm/Hr (0-29)
[2023-12-30 03:58] LABS: High Sens Troponin Baseline 8 pg/mL (<15)
[2023-12-30] MEDS: Morphine 2 MG/ML SYRINGE IV PRN ×2 (04:25→21:03)
[2023-12-30] MEDS: Iodixanol (CONTRAST) 320 MG/ML 100 ML SDV IV ONE (05:31)
[2023-12-30] MEDS: Albuterol/Ipratropium NEB.SOL (2.5/0.5 MG) 3 ML NEB.SOLN INH PRN (06:31)
[2023-12-30] MEDS ORDERED: Azithromycin 500 mg/250 ml NS 500 MG/250 ML BAG IVPB SCH (07:00)
[2023-12-30] MEDS: methylPREDNISolone SOD SUCC 40 mg/ml 1 ml VIAL IV SCH (07:48)
[2023-12-30] MEDS: cefTRIAXone 1 gm/50 mL D5W 1 GM/50 ML BAG IV SCH (08:00)
[2023-12-30] MEDS: DOXYcycline 100 MG in NS 0.9% 250 ml 250 ML IVPB SCH (09:05)
[2023-12-30 10:39] LABS: ABS Basophils 0.1 10^3/uL (0.0-0.1); ABS Eosinophils 0.1 10^3/uL (0.0-0.5); ABS Lymphocytes 0.6 10^3/uL (1.0-4.8); ABS Monocytes 0.3 10^3/uL (0.0-0.9); ABS Neutrophils 15.5 10^3/uL (1.5-7.6); Eosinophil % 0.3 %; Hematocrit 42.4 % (35-45); Hemoglobin 14.5 g/dL (11.5-14.3); Lymphocyte % 3.4 %; Mean Corpuscular Hemoglobin 28.4 pg (27-33); Mean Corpuscular Hgb Conc 34.2 g/dL (31-36); Mean Corpuscular Volume 82.9 fL (80-97); Mean Platelet Volume 7.5 fL (7.5-11.2); Platelet Count 259 10^3/uL (150-450); Red Blood Count 5.12 10^6/uL (3.63-4.92); Red Cell Distribution Width 15.3 % (12-17); White Blood Count 16.6 10^3/uL (3.8-11.8)
[2023-12-30 11:03] LABS: High Sensitivity Troponin 1 Hr 43 pg/mL (<15)
[2023-12-30 11:07] LABS: Urine Specific Gravity >1.050 (1.002-1.030)
[2023-12-30 11:09] LABS: Urine Appearance Clear; Urine Bacteria Absent /HPF (Absent); Urine Bilirubin Negative (Negative); Urine Blood Negative (Negative); Urine Color Yellow; Urine Glucose Negative (Negative); Urine Ketones Negative (Negative); Urine Nitrite Negative (Negative); Urine Protein 1+ (>=30 mg/dL) (Negative); Urine Red Blood Cell 1+(3-5/hpf) /HPF (0-Trace); Urine Urobilinogen Negative (Negative); Urine White Blood Cell Trace(0-5/hpf) /HPF (0-Trace); Urine pH 6.5 (5.0-8.0)
[2023-12-30 11:11] LABS: Calcium 8.8 mg/dL (8.6-10.3); Creatinine, Serum 1.05 mg/dL (0.51-0.95); Magnesium 1.9 mg/dL (1.9-2.7); Potassium 4.5 mmol/L (3.5-5.0)
[2023-12-31] MEDS: Morphine 4 MG/ML VIAL (1 ml) IV ONE ×2 (06:25→21:43)
[2023-12-31 07:55] LABS: ABS Basophils 0.1 10^3/uL (0.0-0.1); ABS Eosinophils 0.1 10^3/uL (0.0-0.5); ABS Lymphocytes 0.9 10^3/uL (1.0-4.8); ABS Monocytes 1.2 10^3/uL (0.0-0.9); ABS Neutrophils 14.7 10^3/uL (1.5-7.6); ABS Nucleated RBC 0.01 10^3/ul; Eosinophil % 0.8 %; Hematocrit 40.8 % (35-45); Hemoglobin 13.6 g/dL (11.5-14.3); Lymphocyte % 5.1 %; Mean Corpuscular Hgb Conc 33.4 g/dL (31-36); Mean Corpuscular Volume 83.7 fL (80-97); Mean Platelet Volume 7.8 fL (7.5-11.2); Nucleated Red Blood Cells % 0.1 %/100WBC (0.0-0.8); Platelet Count 224 10^3/uL (150-450); Red Blood Count 4.88 10^6/uL (3.63-4.92); Red Cell Distribution Width 15.3 % (12-17); White Blood Count 17.1 10^3/uL (3.8-11.8)
[2023-12-31 07:57] LABS: ALT 16 U/L (7-52); Albumin/Globulin Ratio 1.3 (1-3); Alkaline Phosphatase 98 U/L (35-149); Amylase 59 U/L (29-103); Anion Gap 13 mmol/L (2-16); Blood Urea Nitrogen 22 mg/dL (6-24); CO2 Carbon Dioxide 20 mmol/L (22-32); Calcium 8.8 mg/dL (8.6-10.3); Chloride 107 mmol/L (101-111); Creatinine, Serum 0.97 mg/dL (0.51-0.95); Glucose 128 mg/dL (70-100); Lipase 44 U/L (11.0-82.0); Sodium 140 mmol/L (135-145); Total Bilirubin 1.3 mg/dL (0.2-1.0); eGFR CKD-EPI 58.3 (>60)
[2023-12-31 08:12] LABS: Potassium Redraw 4.2 mmol/L (3.5-5.0)
[2023-12-31] MEDS: Morphine 2 MG/ML SYRINGE IV ONE (22:03)
[2024-01-01] MEDS: Morphine 2 MG/ML SYRINGE IV ONE (05:22)
[2024-01-01] MEDS: HYDROcodone/ACETAMIN 5/325 mg TAB PO PRN (09:12)
[2024-01-01] MEDS ORDERED: Morphine 4 MG/ML VIAL (1 ml) IV PRN (09:35)
[2024-01-01] MEDS ORDERED: Dexamethasone IV 4 MG/ML VIAL 1 ml VIAL ONE (12:30)
[2024-01-01] MEDS ORDERED: Ondansetron 4 mg VIAL 2 MG/ML 2 ml VIAL ONE (12:30)
[2024-01-01] MEDS ORDERED: ceFAZolin 2 GM PREMIX 2 GM/50 ML BAG ONE (12:31)
[2024-01-01] MEDS ORDERED: Etomidate 20 mg/10 ml 2 MG/ML 10 ml VIAL ONE (12:43)
[2024-01-01] MEDS ORDERED: Lidocaine 2% PF 5 ML VIAL ONE (12:45)
[2024-01-01] MEDS ORDERED: fentaNYL 100 mcg/2 ml 50 MCG/ML VIAL ONE (13:25)
[2024-01-01] MEDS ORDERED: Norepinephrine IV 1 MG/ML 4 ML VIAL ONE (13:50)
[2024-01-01] MEDS ORDERED: Naloxone 0.4 mg VIAL 0.4 mg/ml 1 ml VIAL IV PRN (14:26)
[2024-01-01] MEDS ORDERED: Ondansetron 4 mg VIAL 2 MG/ML 2 ml VIAL IV PRN (14:26)
[2024-01-01] MEDS ORDERED: HYDROmorphone 1 MG/1 ML SYRINGE IV PRN (14:26)
[2024-01-01] MEDS ORDERED: fentaNYL 100 mcg/2 ml 50 MCG/ML VIAL IV PRN (14:26)
[2024-01-01] MEDS ORDERED: Acetaminophen IV 1 GM/100ML 1,000 MG/100 ML BAG IV ONE (15:16)
[2024-01-01] MEDS: Acetaminophen IV 1 GM/100ML 1,000 MG/100 ML BAG IV ONE (15:19)
[2024-01-01] MEDS: Lactated Ringers 1000 ml BAG 1,000 ML IV SCH (17:36)
[2024-01-01] MEDS: Enoxaparin 40 MG/0.4 ML SYR SUBCUT SCH (17:38)
[2024-01-01] MEDS ORDERED: ceFAZolin 1 GM ADVAN 1 GM in NS 0.9% 50 ML 50 ML IVPB SCH (21:30)
[2024-01-02 10:17] LABS: ABS Basophils 0.1 10^3/uL (0.0-0.1); ABS Lymphocytes 0.7 10^3/uL (1.0-4.8); ABS Neutrophils 12.8 10^3/uL (1.5-7.6); Hematocrit 31.2 % (35-45); Hemoglobin 10.4 g/dL (11.5-14.3); Lymphocyte % 4.9 %; Mean Corpuscular Hemoglobin 27.8 pg (27-33); Mean Corpuscular Hgb Conc 33.2 g/dL (31-36); Mean Corpuscular Volume 83.6 fL (80-97); Mean Platelet Volume 7.9 fL (7.5-11.2); Platelet Count 192 10^3/uL (150-450); Red Blood Count 3.73 10^6/uL (3.63-4.92); Red Cell Distribution Width 15.2 % (12-17); White Blood Count 14.6 10^3/uL (3.8-11.8)
[2024-01-02 10:59] LABS: Albumin 3.2 g/dL (3.2-5.2); Albumin/Globulin Ratio 1.4 (1-3); Calcium 7.9 mg/dL (8.6-10.3); Creatinine, Serum 0.79 mg/dL (0.51-0.95); Globulin 2.3 g/dL (2-4); Potassium 3.5 mmol/L (3.5-5.0); Total Bilirubin 0.8 mg/dL (0.2-1.0); Total Protein 5.5 g/dL (6.4-8.9); eGFR CKD-EPI 74.6 (>60)
[2024-01-02] MEDS: Albuterol/Ipratropium NEB.SOL (2.5/0.5 MG) 3 ML NEB.SOLN INH SCH (20:51)
[2024-01-03] MEDS: Haloperidol 5 mg/ml SDV IV/IM 5 MG/ML AMP IM ONE (00:43)
[2024-01-03] MEDS ORDERED: LORazepam 2 mg VIAL 1 ml IM PRN (00:52)
[2024-01-03] MEDS ORDERED: Lorazepam PYXIS KEY PRN (00:52)
[2024-01-03] MEDS: diazePAM INJ CARPUJECT 5 MG/ML SYRINGE IM PRN (01:38)
[2024-01-03] MEDS: Morphine 2 MG/ML SYRINGE IV PRN (03:34)
[2024-01-03 10:47] VITALS: BP 128/70
[2024-01-03 12:31] LABS: Rapid COVID-19 Molecular Undetected (Undetected)
== END 2024-01-03 14:10 | DRG 480 ==
LOC: EDHOLD 22:06 → ED 22:06 → MEDTELE 12-30 03:08 → SUATTDRO 12-30 11:51 → SSU 01-01 14:57
PROVIDERS: ADMIT Student in an Organized Health Care Education/Training Program; ATTEND Internal Medicine

== ENCOUNTER 2024-04-13 13:03 | Inpatient (IN) ==
[2024-04-13] MEDS: Piperacillin/Tazobac 3.375 BAG 3.375 GM/100 ML BAG IV ONE (14:11)
[2024-04-13] MEDS: Acetaminophen IV 1 GM/100ML 1,000 MG/100 ML BAG IV ONE (14:11)
[2024-04-13] MEDS: Lactated Ringers 1000 ml BAG 1,000 ML IV ONE (14:11)
[2024-04-13 14:14] LABS: Venous Bicarbonate HCO3 17.1 mmol/L (24-28)
[2024-04-13 14:25] LABS: Hematocrit 49.9 % (35-45); Hemoglobin 15.2 g/dL (11.5-14.3); Mean Corpuscular Hemoglobin 23.8 pg (27-33); Mean Corpuscular Hgb Conc 30.5 g/dL (31-36); Mean Corpuscular Volume 77.9 fL (80-97); Mean Platelet Volume 9.1 fL (7.5-11.2); Platelet Count 359 10^3/uL (150-450); Red Cell Distribution Width 19.2 % (12-17); White Blood Count 31.1 10^3/uL (3.8-11.8)
[2024-04-13 14:27] LABS: Activated Partial Thrombo Time 26.3 seconds (26.0-38.0); INR 1.18 (0.83-1.13)
[2024-04-13 14:59] LABS: ABS Basophils 0.1 10^3/uL (0.0-0.1); ABS Monocytes 0.7 10^3/uL (0.0-0.9); ABS Neutrophils 29.3 10^3/uL (1.5-7.6); Lymphocyte % 3.3 %
[2024-04-13 15:00] LABS: ABS Lymphocytes 0.6 10^3/ul (1.0-4.8); ABS Monocytes 0.6 10^3/ul (0.0-0.9); ABS Neutrophils 29.6 10^3/ul (1.5-7.6); Anisocytosis 1+; Hypochromasia 2+; Large Platelets Present; Microcytosis 1+
[2024-04-13 15:01] LABS: ABS Basophils 0.3 10^3/ul (0.0-0.1)
[2024-04-13 15:08] LABS: Albumin 3.9 g/dL (3.2-5.2); Albumin/Globulin Ratio 0.8 (1-3); C Reactive Protein 150.04 mg/L (<8.01); Calcium 9.8 mg/dL (8.6-10.3); Creatinine, Serum 3.45 mg/dL (0.51-0.95); Globulin 4.6 g/dL (2-4); Total Bilirubin 1.1 mg/dL (0.2-1.0); Total Protein 8.5 g/dL (6.4-8.9); eGFR CKD-EPI 12.6 (>60)
[2024-04-13] MEDS: Lactated Ringers 1000 ml BAG 500 ML IV ONE (15:18)
[2024-04-13 15:42] LABS: High Sensitivity Troponin 1 Hr 120 pg/mL (<15)
[2024-04-13] MEDS: D5W 1000 ml BAG 1,000 ML IV SCH ×2 (15:52→23:29)
[2024-04-13 18:03] LABS: Urine Appearance Turbid; Urine Bilirubin Negative (Negative); Urine Blood 2+ (Negative); Urine Color Yellow; Urine Glucose Negative (Negative); Urine Ketones Negative (Negative); Urine Nitrite Negative (Negative); Urine Protein 1+ (>=30 mg/dL) (Negative); Urine Specific Gravity 1.022 (1.002-1.030); Urine Urobilinogen Negative (Negative)
[2024-04-13] MEDS: NORMOSOL-R pH 7.4 1000 mL BAG 1,000 ML IV SCH (18:26)
[2024-04-13 18:43] LABS: Urine Bacteria 1+ /HPF (Absent); Urine Red Blood Cell 1+(3-5/hpf) /HPF (0-Trace); Urine White Blood Cell 2+(11-20/hpf) /HPF (0-Trace)
[2024-04-13 19:25] LABS: Activated Partial Thrombo Time 36.1 seconds (26.0-38.0); INR 1.94 (0.83-1.13)
[2024-04-13 21:04] LABS: Anion Gap 28 mmol/L (2-16); Blood Urea Nitrogen 46 mg/dL (6-24); CO2 Carbon Dioxide 10 mmol/L (22-32); Calcium < 4.0 mg/dL (8.6-10.3); Chloride 114 mmol/L (101-111); Creatinine, Serum 1.31 mg/dL (0.51-0.95); Glucose 110 mg/dL (70-100); Potassium 4.9 mmol/L (3.5-5.0); Sodium 152 mmol/L (135-145); eGFR CKD-EPI 40.4 (>60)
[2024-04-13] MEDS: Heparin 5000 UNITS/ML 1 mL VIAL SUBCUT SCH (22:36)
[2024-04-13] MEDS: Morphine 2 MG/ML SYRINGE IV PRN (22:36)
[2024-04-13 22:49] LABS: Anion Gap 13 mmol/L (2-16); Blood Urea Nitrogen 62 mg/dL (6-24); CO2 Carbon Dioxide 14 mmol/L (22-32); Calcium 5.3 mg/dL (8.6-10.3); Chloride 137 mmol/L (101-111); Creatinine, Serum 1.98 mg/dL (0.51-0.95); Glucose 137 mg/dL (70-100); Sodium 164 mmol/L (135-145); eGFR CKD-EPI 24.6 (>60)
[2024-04-13] MEDS: CALCIUM GLUCONATE 1GM/50ML NS 1 GM/50 ML BAG IV SCH (23:36)
[2024-04-13 23:39] LABS: Potassium, Whole Blood 4.3 mmol/L (3.4-4.5)
[2024-04-14] MEDS: Acetaminophen IV 1 GM/100ML 1,000 MG/100 ML BAG IV PRN (06:36)
[2024-04-14 07:22] LABS: Hematocrit 38.5 % (35-45); Hemoglobin 11.9 g/dL (11.5-14.3); Mean Corpuscular Hemoglobin 23.7 pg (27-33); Mean Corpuscular Hgb Conc 30.9 g/dL (31-36); Mean Corpuscular Volume 76.7 fL (80-97); Mean Platelet Volume 9.1 fL (7.5-11.2); Platelet Count 251 10^3/uL (150-450); Red Blood Count 5.02 10^6/uL (3.63-4.92); Red Cell Distribution Width 18.6 % (12-17); White Blood Count 25.6 10^3/uL (3.8-11.8)
[2024-04-14 07:30] LABS: ABS Lymphocytes 1.3 10^3/uL (1.0-4.8); ABS Monocytes 0.7 10^3/uL (0.0-0.9); ABS Neutrophils 23.5 10^3/uL (1.5-7.6); Eosinophil % 0.1 %
[2024-04-14 07:48] LABS: Calcium 8.7 mg/dL (8.6-10.3); Creatinine, Serum 2.77 mg/dL (0.51-0.95); Potassium 4.1 mmol/L (3.5-5.0); eGFR CKD-EPI 16.5 (>60)
[2024-04-14] MEDS: D5W 1000 ml BAG 1,000 ML IV ONE (08:32)
[2024-04-14] MEDS ORDERED: Zosyn per Pharmacy NOTE FOLLOW UP SCH (11:00)
[2024-04-14 11:38] LABS: Anion Gap 10 mmol/L (2-16); Blood Urea Nitrogen 75 mg/dL (6-24); CO2 Carbon Dioxide 19 mmol/L (22-32); Calcium 8.1 mg/dL (8.6-10.3); Chloride 126 mmol/L (101-111); Creatinine, Serum 2.66 mg/dL (0.51-0.95); Glucose 334 mg/dL (70-100); Potassium 3.5 mmol/L (3.5-5.0); Sodium 155 mmol/L (135-145); eGFR CKD-EPI 17.3 (>60)
[2024-04-14] MEDS: ZOSYN 3.375 GM x ONE DOSE over 30 miuntes IV (11:40)
[2024-04-14] MEDS ORDERED: Lorazepam PYXIS KEY PRN (12:03)
[2024-04-14 12:40] LABS: Urine Osmo 595 mOsm/kg (150-1150)
[2024-04-14 12:41] LABS: Urine Potassium Concentration 57.6 mmol/L
[2024-04-14 12:44] LABS: Magnesium 2.8 mg/dL (1.9-2.7)
[2024-04-14] MEDS: KCL 20 MEQ/100 ML IVPREMIX 20 MEQ/100 ML BAG IV SCH (12:58)
[2024-04-14] MEDS: LORazepam 2 mg VIAL 1 ml IV PUSH ONE (12:58)
[2024-04-14 17:07] LABS: Calcium 8.5 mg/dL (8.6-10.3); Creatinine, Serum 2.46 mg/dL (0.51-0.95); Potassium 3.8 mmol/L (3.5-5.0)
[2024-04-14] MEDS: ZOSYN 3.375 GM Q12H per EXTENDED INFUSION IV SCH (17:10)
[2024-04-14] MEDS: NORMOSOL-R pH 7.4 1000 mL BAG 500 ML IV SCH (17:15)
[2024-04-14] MEDS: NORMOSOL-R pH 7.4 1000 mL BAG 1,000 ML IV SCH (17:15)
[2024-04-14] MEDS: Lactated Ringers 1000 ml BAG 500 ML IV ONE (17:24)
[2024-04-14] MEDS: D5W 500 ml BAG 500 ML IV ONE (20:00)
[2024-04-14 20:54] LABS: % Iron Saturation 11 % (15-55); .Transferrin 132 mg/dL (203-362); Iron < 20 ug/dL (50-212); Total Iron Binding Capacity 185 mcg/dL (250-450); Unsaturated Iron Binding 165 ug/dL
[2024-04-14 21:18] LABS: Ferritin 177.5 ng/mL (11-307)
[2024-04-14] MEDS ORDERED: LORazepam 2 mg VIAL 1 ml IM PRN (21:58)
[2024-04-14] MEDS ORDERED: LORazepam 2 mg VIAL 1 ml IV PUSH PRN (21:59)
[2024-04-14 23:12] LABS: Calcium 8.1 mg/dL (8.6-10.3); Creatinine, Serum 2.2 mg/dL (0.51-0.95); Potassium 3.8 mmol/L (3.5-5.0); eGFR CKD-EPI 21.7 (>60)
[2024-04-14] MEDS: D5W 1000 ml BAG 1,000 ML IV SCH (23:56)
[2024-04-15 04:26] LABS: ABS Basophils 0.1 10^3/uL (0.0-0.1); ABS Eosinophils 0.2 10^3/uL (0.0-0.5); ABS Lymphocytes 1.4 10^3/uL (1.0-4.8); ABS Monocytes 0.6 10^3/uL (0.0-0.9); ABS Neutrophils 14.2 10^3/uL (1.5-7.6); ABS Nucleated RBC 0.01 10^3/ul; Eosinophil % 1.2 %; Hematocrit 35.5 % (35-45); Hemoglobin 11.2 g/dL (11.5-14.3); Lymphocyte % 8.5 %; Mean Corpuscular Hemoglobin 23.8 pg (27-33); Mean Corpuscular Hgb Conc 31.5 g/dL (31-36); Mean Corpuscular Volume 75.5 fL (80-97); Mean Platelet Volume 9.1 fL (7.5-11.2); Platelet Count 230 10^3/uL (150-450); Red Cell Distribution Width 18.5 % (12-17); White Blood Count 16.5 10^3/uL (3.8-11.8)
[2024-04-15 05:25] LABS: Albumin 2.7 g/dL (3.2-5.2); Albumin/Globulin Ratio 0.9 (1-3); Calcium 7.7 mg/dL (8.6-10.3); Creatinine, Serum 1.99 mg/dL (0.51-0.95); Globulin 3.1 g/dL (2-4); Magnesium 2.3 mg/dL (1.9-2.7); Potassium 3.9 mmol/L (3.5-5.0); Total Bilirubin 0.6 mg/dL (0.2-1.0); Total Protein 5.8 g/dL (6.4-8.9); eGFR CKD-EPI 24.5 (>60)
[2024-04-15 14:28] LABS: Calcium 7.4 mg/dL (8.6-10.3); Creatinine, Serum 1.7 mg/dL (0.51-0.95); Potassium 3.4 mmol/L (3.5-5.0); eGFR CKD-EPI 29.6 (>60)
[2024-04-15] MEDS ORDERED: Albuterol HFA INHALER 8 gm MDI INH PRN (18:37)
[2024-04-15] MEDS: Albuterol/Ipratropium NEB.SOL (2.5/0.5 MG) 3 ML NEB.SOLN INH SCH (19:50)
[2024-04-16 01:24] LABS: Calcium 7.5 mg/dL (8.6-10.3); Creatinine, Serum 1.55 mg/dL (0.51-0.95); Potassium 3.4 mmol/L (3.5-5.0)
[2024-04-16 06:55] LABS: ABS Eosinophils 0.1 10^3/uL (0.0-0.5); ABS Lymphocytes 1.6 10^3/uL (1.0-4.8); ABS Monocytes 0.5 10^3/uL (0.0-0.9); ABS Neutrophils 8.4 10^3/uL (1.5-7.6); ABS Nucleated RBC 0.01 10^3/ul; Eosinophil % 1.4 %; Hematocrit 37.8 % (35-45); Hemoglobin 11.8 g/dL (11.5-14.3); Lymphocyte % 14.7 %; Mean Corpuscular Hemoglobin 23.5 pg (27-33); Mean Corpuscular Hgb Conc 31.2 g/dL (31-36); Mean Corpuscular Volume 75.4 fL (80-97); Nucleated Red Blood Cells % 0.1 %/100WBC (0.0-0.8); Platelet Count 231 10^3/uL (150-450); Red Blood Count 5.01 10^6/uL (3.63-4.92); Red Cell Distribution Width 18.4 % (12-17); White Blood Count 10.7 10^3/uL (3.8-11.8)
[2024-04-16 07:16] LABS: Calcium 7.6 mg/dL (8.6-10.3); Creatinine, Serum 1.5 mg/dL (0.51-0.95); Magnesium 2.1 mg/dL (1.9-2.7); Potassium 3.3 mmol/L (3.5-5.0); eGFR CKD-EPI 34.4 (>60)
[2024-04-16] MEDS ORDERED: Lactated Ringers 1000 ml BAG 1,000 ML IV SCH (08:00)
[2024-04-16] MEDS ORDERED: Albuterol/Ipratropium NEB.SOL (2.5/0.5 MG) 3 ML NEB.SOLN INH PRN (10:57)
[2024-04-16] MEDS: Lactated Ringers 1000 ml BAG 1,000 ML IV SCH (11:01)
[2024-04-16] MEDS: KCL 20 MEQ/100 ML IVPREMIX 20 MEQ/100 ML BAG IV SCH (11:01)
[2024-04-16] MEDS: Acetaminophen IV 1 GM/100ML 1,000 MG/100 ML BAG IV SCH (11:04)
[2024-04-16 19:17] LABS: Creatinine, Serum 1.26 mg/dL (0.51-0.95); Potassium 3.9 mmol/L (3.5-5.0); eGFR CKD-EPI 42.4 (>60)
[2024-04-17 06:53] LABS: Calcium 7.6 mg/dL (8.6-10.3); Creatinine, Serum 1.09 mg/dL (0.51-0.95); Potassium 2.9 mmol/L (3.5-5.0); eGFR CKD-EPI 50.4 (>60)
[2024-04-17] MEDS: KCL 20 MEQ/100 ML IVPREMIX 20 MEQ/100 ML BAG IV SCH ×2 (11:34→18:37)
[2024-04-17] MEDS: Lactated Ringers 1000 ml BAG 1,000 ML IV SCH (12:32)
[2024-04-17 15:43] LABS: Anaplasma phagocytophilum Negative (Negative); B. miyamotoi PCR, B Negative (Negative); Babesia divergens/MO-1 Negative (Negative); Babesia ducani Negative (Negative); Ehrlichia chaffeensis Negative (Negative); Ehrlichia ewingii/canis Negative (Negative); Ehrlichia muris eauclairensis Negative (Negative)
[2024-04-17 16:55] LABS: Magnesium 1.8 mg/dL (1.9-2.7)
[2024-04-17] MEDS ORDERED: cefTRIAXone 1 gm/50 mL D5W 1 GM/50 ML BAG IV SCH (17:00)
[2024-04-18 07:02] LABS: Calcium 7.3 mg/dL (8.6-10.3); Creatinine, Serum 0.83 mg/dL (0.51-0.95); Magnesium 1.5 mg/dL (1.9-2.7); Potassium 3.1 mmol/L (3.5-5.0); eGFR CKD-EPI 69.9 (>60)
[2024-04-18] MEDS: Magnesium Sulf 4 GM/100 ML IV 4,000 MG/100 ML BAG IVPB ONE (08:39)
[2024-04-18] MEDS: KCL 20 MEQ/100 ML IVPREMIX 20 MEQ/100 ML BAG IV SCH (08:39)
[2024-04-18 14:59] LABS: Phosphorus 2.1 mg/dL (2.5-5.0)
[2024-04-19 06:57] LABS: Calcium 7.4 mg/dL (8.6-10.3); Creatinine, Serum 0.8 mg/dL (0.51-0.95); Magnesium 2.1 mg/dL (1.9-2.7); Potassium 3.2 mmol/L (3.5-5.0); eGFR CKD-EPI 73.1 (>60)
[2024-04-19 07:29] LABS: ABS Eosinophils 0.4 10^3/uL (0.0-0.5); ABS Lymphocytes 1.6 10^3/uL (1.0-4.8); ABS Monocytes 0.9 10^3/uL (0.0-0.9); ABS Neutrophils 9.9 10^3/uL (1.5-7.6); Eosinophil % 3.1 %; Hematocrit 36.7 % (35-45); Hemoglobin 11.5 g/dL (11.5-14.3); Lymphocyte % 12.3 %; Mean Corpuscular Hgb Conc 31.2 g/dL (31-36); Mean Corpuscular Volume 73.8 fL (80-97); Mean Platelet Volume 8.8 fL (7.5-11.2); Platelet Count 256 10^3/uL (150-450); Red Blood Count 4.97 10^6/uL (3.63-4.92); Red Cell Distribution Width 17.9 % (12-17); White Blood Count 12.8 10^3/uL (3.8-11.8)
[2024-04-19] MEDS: Potassium Chloride LIQUID 20 MEQ/15 ML LIQUID PO ONE (09:09)
[2024-04-19] MEDS ORDERED: Dextrose 50% Syringe 50 ml 25 GM/50 ML SYRINGE IV PUSH PRN (15:17)
[2024-04-20 06:22] LABS: ABS Eosinophils 0.4 10^3/uL (0.0-0.5); ABS Lymphocytes 1.5 10^3/uL (1.0-4.8); ABS Monocytes 0.6 10^3/uL (0.0-0.9); ABS Neutrophils 8.8 10^3/uL (1.5-7.6); Eosinophil % 3.9 %; Hematocrit 33.7 % (35-45); Hemoglobin 10.7 g/dL (11.5-14.3); Lymphocyte % 13.1 %; Mean Corpuscular Hemoglobin 23.5 pg (27-33); Mean Corpuscular Hgb Conc 31.8 g/dL (31-36); Mean Corpuscular Volume 73.9 fL (80-97); Mean Platelet Volume 8.6 fL (7.5-11.2); Platelet Count 229 10^3/uL (150-450); Red Blood Count 4.57 10^6/uL (3.63-4.92); Red Cell Distribution Width 18.3 % (12-17); White Blood Count 11.4 10^3/uL (3.8-11.8)
[2024-04-20 06:46] LABS: Calcium 7.2 mg/dL (8.6-10.3); Creatinine, Serum 0.76 mg/dL (0.51-0.95); Potassium 3.4 mmol/L (3.5-5.0); eGFR CKD-EPI 77.7 (>60)
[2024-04-20 07:57] LABS: Magnesium 1.8 mg/dL (1.9-2.7)
[2024-04-20] MEDS: Potassium Chloride LIQUID 20 MEQ/15 ML LIQUID PO ONE (09:33)
[2024-04-20] MEDS: Magnesium Sulfate 2 gm BAG 2 GM/50 ML BAG IVPB ONE (10:30)
[2024-04-20] MEDS: Lactated Ringers 1000 ml BAG 1,000 ML IV SCH (22:39)
[2024-04-21 02:07] VITALS: BP 89/54
== END 2024-04-21 11:30 | disposition expired | DRG 640 ==
LOC: ED 13:03 → MED 17:09 → SUATTDRO 17:09 → EDHOLD 17:09 → ICU 19:47 → MED 04-15 18:27
PROVIDERS: ADMIT Internal Medicine Pulmonary Disease; ATTEND Hospitalist